=== PATIENT | male | born 1975 | race Caucasian/White ===

== ENCOUNTER 2016-09-23 18:20 | Inpatient (IN) | payer MEDICAID, OTHER ==
[~2016-09-23] VITALS: Ht 185.4 cm; Wt 90.5 kg
[~2016-09-23 18:20] MED LIST: BENZ1TAB10 PO; DIPH25 PO; LURA40 PO
[2016-09-23 19:46] LABS: BASOPHILS % (AUTO) 0.2 % (0.0-2.0); EOSINOPHILS % (AUTO) 0 % (1.0-6.0); HEMATOCRIT 43.1 % (41-53); HEMOGLOBIN 14.2 g/dL (13.5-17.5); LYMPHOCYTES # (AUTO) 1.4 K/uL (1.0-4.8); LYMPHOCYTES % (AUTO) 24.8 % (22.0-44.0); MEAN CORPUSCULAR HEMOGLOBIN 27.2 pg (26.0-34.0); MEAN CORPUSCULAR VOLUME 82 fL (80-100); MONOCYTES # (AUTO) 0.4 K/uL (0.1-1.0); MONOCYTES % (AUTO) 6.9 % (2.0-9.0); NEUTROPHILS # (AUTO) 3.9 K/uL (1.8-7.7); NEUTROPHILS % (AUTO) 68.1 % (40.0-70.0); PLATELET COUNT (AUTO) 213 K/uL (150-450); RED BLOOD CELL COUNT(AUTO) 5.23 MIL/uL (4.50-5.90); RED CELL DISTRIBUTION WIDTH 14.1 % (11.5-14.5); WHITE BLOOD COUNT (AUTO) 5.8 K/uL (4.5-11.0)
[2016-09-23 19:58] LABS: ANION GAP 6 mmol/L (8-16); CALCIUM, TOTAL 8.6 mg/dL (8.8-10.5); CARBON DIOXIDE 28 mmol/L (22-29); CHLORIDE 103 mmol/L (98-107); GLOMERULAR FILTR. RATE CALC > 60 mL/min (>60); POTASSIUM 4.2 mmol/L (3.5-5.1); SODIUM SERUM 137 mmol/L (136-145); UREA NITROGEN, BLOOD 16 mg/dL (7-18)
[2016-09-23] MEDS ORDERED: LORazepam 2 MG TABLET PO ONE (20:00)
[2016-09-23] MEDS ORDERED: HALOPERIDOL 5 MG TABLET PO ONE (20:00)
[2016-09-23 20:04] LABS: ALANINE AMINOTRANSFERASE 145 U/L (12-78); ALBUMIN 3.9 g/dL (3.4-5.0); ASPARTATE AMINOTRANSFERASE 209 U/L (15-37); BILIRUBIN,TOTAL 0.3 mg/dL (0.1-1.0); TOTAL PROTEIN, SERUM 7.7 g/dL (6.4-8.2)
[2016-09-23] MEDS ORDERED: DiphenhydrAMINE HCL 25 MG CAPSULE PO ONE (21:45)
[2016-09-23] MEDS ORDERED: LORazepam 2 MG/ML VIAL IM ONE (21:45)
[2016-09-23] MEDS ORDERED: ZOLPIDEM TARTRATE 10 MG TABLET PO PRN (22:30)
[2016-09-24 02:21] VITALS: BP 118/60
[2016-09-24] MEDS ORDERED: INFLUENZA VIRUS VACCINE QVS 2016-17 (3YR+)/PF 60 MCG/0.5 ML SYRINGE IM ONE (02:30)
[2016-09-24 08:01] VITALS: BP 123/74
[2016-09-24] MEDS ORDERED: MAGNESIUM HYDROXIDE SUSPENSION 30 ML UDCUP PO PRN (09:15)
[2016-09-24] MEDS ORDERED: CloNIDine HCL 0.1 MG TABLET PO PRN (09:15)
[2016-09-24] MEDS ORDERED: IBUPROFEN 600 MG TABLET PO PRN (09:15)
[2016-09-24] MEDS ORDERED: BACITRACIN 28.4 GM OINTMENT TP PRN (09:15)
[2016-09-24] MEDS ORDERED: ONDANSETRON HCL 4 MG TABLET PO PRN (09:15)
[2016-09-24] MEDS ORDERED: MAG HYDROX/AL HYDROX/SIMETH ES 30 ML SUSPENSION UDCUP PO PRN (09:15)
[2016-09-24] MEDS ORDERED: PETROLATUM,WHITE 71 GM JELLY TP PRN (09:15)
[2016-09-24] MEDS ORDERED: LOPERAMIDE HCL 2 MG CAPSULE PO PRN (09:15)
[2016-09-24] MEDS ORDERED: ACETAMINOPHEN 325 MG TABLET PO PRN (09:15)
[2016-09-24] MEDS ORDERED: BENZOCAINE/MENTHOL LOZENGE [8 LOZENGES/PACKET] MM PRN (09:15)
[2016-09-24] MEDS ORDERED: ALBUTEROL SULFATE HFA 90 MCG/PUFF 8 GM INHALER IH PRN (09:15)
[2016-09-24 16:00] VITALS: BP 125/74
[2016-09-24] MEDS: LURASIDONE HCL 80 MG TABLET PO SCH (17:03)
[2016-09-25 07:13] LABS: CHOL/HDL RATIO 1.7 (4.2-7.3); THYROID STIMULATING HORMONE 1.1 uIU/mL (0.36-3.74)
[2016-09-25 08:11] VITALS: BP 130/74
[2016-09-25 11:26] VITALS: BP 130/74
[2016-09-25] MEDS: LORazepam 2 MG TABLET PO PRN (13:15)
[2016-09-25 16:00] VITALS: BP 125/95
[2016-09-25] MEDS: LURASIDONE HCL 80 MG TABLET PO SCH (17:00)
[2016-09-26 05:05] VITALS: BP 146/77
[2016-09-26 08:00] VITALS: BP 139/96
[2016-09-26 11:26] LABS: HEPATITIS Bs ANTIGEN SCREEN P Negative (Negative); HEPATITIS C AB SCREEN <0.1 s/co ratio (0.0-0.9)
[2016-09-26] MEDS: HALOPERIDOL 5 MG TABLET PO PRN (13:13)
[2016-09-26] MEDS: LORazepam 2 MG TABLET PO PRN (13:13)
[2016-09-26] MEDS: LURASIDONE HCL 80 MG TABLET PO SCH (16:44)
[2016-09-26 16:56] VITALS: BP 142/90
[2016-09-27] MEDS: LORazepam 2 MG TABLET PO PRN ×2 (01:44→08:11)
[2016-09-27 08:00] VITALS: BP 135/75
[2016-09-27] MEDS: HALOPERIDOL 5 MG TABLET PO PRN (08:11)
== END 2016-09-27 14:45 | disposition home or self-care (01) | DRG 750 ==
LOC: EMS 18:21 → 3EC 23:46
PROVIDERS: ADMIT Psychiatry & Neurology Psychiatry; ATTEND Psychiatry & Neurology Psychiatry
DX: F25.9 Schizoaffective disorder, unspecified (principal); E83.51 Hypocalcemia; R45.851 Suicidal ideations; J44.9 Chronic obstructive pulmonary disease, unspecified; F10.129 Alcohol abuse with intoxication, unspecified; F12.90 Cannabis use, unspecified, uncomplicated; F17.210 Nicotine dependence, cigarettes, uncomplicated; R74.0 Nonspecific elevation of levels of transaminase and lactic acid dehydrogenase [LDH]; S00.01XA Abrasion of scalp, initial encounter; Z71.6 Tobacco abuse counseling; Z59.0 Homelessness; Z79.899 Other long term (current) drug therapy; Y08.89XA Assault by other specified means, initial encounter; Y93.89 Activity, other specified; Y92.89 Other specified places as the place of occurrence of the external cause; Y99.8 Other external cause status; Z28.21 Immunization not carried out because of patient refusal
CPT/HCPCS: 80074; 82306; 84443; 96372; 99285; G0480; J2060

== ENCOUNTER 2019-05-31 07:15 | Inpatient (IN) | payer MEDICAID ==
[~2019-05-31] VITALS: Ht 175.3 cm; Wt 82.4 kg
[~2019-05-31 07:15] MED LIST changes: -BENZ1TAB10 PO; -DIPH25 PO
[2019-05-31] MEDS ORDERED: OLAN10TA3 PO (07:27)
[2019-05-31 07:52] LABS: BASOPHILS % (AUTO) 0.7 % (0.0-2.0); EOSINOPHILS % (AUTO) 0.2 % (1.0-6.0); HEMATOCRIT 39.5 % (41-53); HEMOGLOBIN 12.7 g/dL (13.5-17.5); LYMPHOCYTES # (AUTO) 1.1 K/uL (1.0-4.8); LYMPHOCYTES % (AUTO) 19.2 % (22.0-44.0); MEAN CORPUSCULAR HGB CONC 32.3 G/dL (31.0-37.0); MEAN CORPUSCULAR VOLUME 84 fL (80-100); MONOCYTES # (AUTO) 0.4 K/uL (0.1-1.0); MONOCYTES % (AUTO) 6.9 % (2.0-9.0); NEUTROPHILS # (AUTO) 4.2 K/uL (1.8-7.7); PLATELET COUNT (AUTO) 300 K/uL (150-450); RED BLOOD CELL COUNT(AUTO) 4.73 MIL/uL (4.50-5.90); RED CELL DISTRIBUTION WIDTH 18.2 % (11.5-14.5)
[2019-05-31] MEDS ORDERED: OLANZapine 5 MG TABLET PO ONE (08:00)
[2019-05-31 08:07] LABS: ANION GAP 10 mmol/L (8-16); CALCIUM, TOTAL 8.9 mg/dL (8.8-10.5); CARBON DIOXIDE 29 mmol/L (22-29); CHLORIDE 105 mmol/L (98-107); CREATININE 1.11 mg/dL (0.60-1.30); GLOMERULAR FILTR. RATE CALC > 60 mL/min (>60); GLUCOSE,RANDOM 98 mg/dL (70-110); POTASSIUM 3.8 mmol/L (3.5-5.1); SODIUM SERUM 144 mmol/L (136-145); UREA NITROGEN, BLOOD 17 mg/dL (7-18)
[2019-05-31 08:36] LABS: ALANINE AMINOTRANSFERASE 93 U/L (12-78); ALKALINE PHOSPHATASE 55 U/L (46-116); ASPARTATE AMINOTRANSFERASE 95 U/L (15-37); BILIRUBIN,TOTAL 0.4 mg/dL (0.1-1.0); TOTAL PROTEIN, SERUM 7.6 g/dL (6.4-8.2)
[2019-05-31] MEDS ORDERED: ZOLPIDEM TARTRATE 10 MG TABLET PO PRN (09:15)
[2019-05-31 13:05] VITALS: BP 130/76
[2019-05-31 13:08] VITALS: BP 136/78
[2019-05-31 17:03] VITALS: BP 130/68
[2019-06-01 01:50] VITALS: BP 145/96
[2019-06-01] MEDS: OLANZapine 5 MG RAPDIS TABLET PO PRN ×2 (01:52→17:00)
[2019-06-01] MEDS: LORazepam 2 MG TABLET PO PRN ×3 (01:52→17:00)
[2019-06-01 06:41] LABS: CHOL/HDL RATIO 2.2 (4.2-7.3); FREE T4 (FREE THYROXINE) 0.66 ng/dL (0.76-1.46); THYROID STIMULATING HORMONE 0.61 uIU/mL (0.36-3.74)
[2019-06-01 09:12] VITALS: BP 132/79
[2019-06-01] MEDS ORDERED: ONDANSETRON HCL 4 MG TABLET PO PRN (11:00)
[2019-06-01] MEDS ORDERED: GuaiFENesin/D-METHORPHAN [SUGAR-FREE] 200-20MG/10 ML SYRUP UDCUP PO PRN (11:00)
[2019-06-01] MEDS ORDERED: ALBUTEROL SULFATE HFA 90 MCG/PUFF 8 GM INHALER IH PRN (11:00)
[2019-06-01] MEDS ORDERED: PETROLATUM,WHITE 28 GM JELLY TP PRN (11:00)
[2019-06-01] MEDS ORDERED: NICOTINE 14 MG/24 HOUR PATCH TD PRN (11:00)
[2019-06-01] MEDS ORDERED: MAG HYDROX/AL HYDROX/SIMETH ES 30 ML SUSPENSION UDCUP PO PRN (11:00)
[2019-06-01] MEDS ORDERED: DOCUSATE SODIUM 100 MG CAPSULE PO PRN (11:00)
[2019-06-01] MEDS ORDERED: CloNIDine HCL 0.1 MG TABLET PO PRN (11:00)
[2019-06-01] MEDS ORDERED: ACETAMINOPHEN 325 MG TABLET PO PRN (11:00)
[2019-06-01] MEDS ORDERED: IBUPROFEN 400 MG TABLET PO PRN (11:00)
[2019-06-01] MEDS ORDERED: LOPERAMIDE HCL 2 MG CAPSULE PO PRN (11:00)
[2019-06-01] MEDS ORDERED: MAGNESIUM HYDROXIDE SUSPENSION 30 ML UDCUP PO PRN (11:00)
[2019-06-01] MEDS ORDERED: BUPR-93 PO (12:47)
[2019-06-01] MEDS ORDERED: AMLO10TA7 PO (12:47)
[2019-06-01] MEDS: BuPROPion HCL XL 150 MG ER TABLET PO SCH (12:58)
[2019-06-01] MEDS: AmLODIPine BESYLATE 10 MG TABLET PO SCH (12:58)
[2019-06-01] MEDS: OLANZapine 10 MG TABLET PO SCH (17:00)
[2019-06-01 17:59] VITALS: BP 130/77
[2019-06-02] MEDS: AmLODIPine BESYLATE 10 MG TABLET PO SCH (07:49)
[2019-06-02] MEDS: BuPROPion HCL XL 150 MG ER TABLET PO SCH (07:49)
[2019-06-02] MEDS: LORazepam 2 MG TABLET PO PRN ×4 (07:49→17:36)
[2019-06-02] MEDS: OLANZapine 5 MG RAPDIS TABLET PO PRN ×3 (07:50→12:26)
[2019-06-02 09:26] VITALS: BP 150/101
[2019-06-02] MEDS ORDERED: LURA80 PO (17:56)
[2019-06-02] MEDS ORDERED: HALOPERIDOL LACTATE 5 MG/ML VIAL IM ONE (18:00)
[2019-06-02] MEDS ORDERED: LORazepam 2 MG/ML VIAL IM ONE (18:00)
[2019-06-02] MEDS ORDERED: DiphenhydrAMINE HCL 50 MG/ML VIAL IM ONE (18:00)
[2019-06-02] MEDS: OLANZapine 10 MG TABLET PO SCH (20:30)
[2019-06-02 21:26] VITALS: BP 138/79
[2019-06-03] MEDS: LORazepam 2 MG TABLET PO PRN ×2 (08:41→13:54)
[2019-06-03] MEDS: BuPROPion HCL XL 150 MG ER TABLET PO SCH (08:41)
[2019-06-03] MEDS: AmLODIPine BESYLATE 10 MG TABLET PO SCH (08:41)
[2019-06-03] MEDS: OLANZapine 5 MG RAPDIS TABLET PO PRN (13:54)
[2019-06-03] MEDS ORDERED: LORazepam 2 MG/ML VIAL IM ONE (16:15)
[2019-06-03] MEDS ORDERED: HALOPERIDOL LACTATE 5 MG/ML VIAL IM ONE (16:15)
[2019-06-03] MEDS ORDERED: DiphenhydrAMINE HCL 50 MG/ML VIAL IM ONE (16:15)
[2019-06-03 16:26] VITALS: BP 134/82
[2019-06-03] MEDS: OLANZapine 10 MG TABLET PO SCH (20:36)
[2019-06-04] MEDS: AmLODIPine BESYLATE 10 MG TABLET PO SCH (09:37)
[2019-06-04] MEDS: LORazepam 2 MG TABLET PO PRN ×2 (09:37→18:10)
[2019-06-04] MEDS: BuPROPion HCL XL 150 MG ER TABLET PO SCH (09:37)
[2019-06-04 10:19] VITALS: BP 115/63
[2019-06-04 16:27] VITALS: BP 130/78
[2019-06-04] MEDS: OLANZapine 10 MG TABLET PO SCH (20:13)
[2019-06-05] MEDS: AmLODIPine BESYLATE 10 MG TABLET PO SCH (09:40)
[2019-06-05] MEDS: BuPROPion HCL XL 150 MG ER TABLET PO SCH (09:40)
[2019-06-05 12:30] VITALS: BP 116/78
[2019-06-05 16:00] VITALS: BP 126/75
[2019-06-05] MEDS: OLANZapine 10 MG TABLET PO SCH (20:08)
[2019-06-06] MEDS: LORazepam 2 MG TABLET PO PRN ×3 (04:56→18:28)
[2019-06-06] MEDS: AmLODIPine BESYLATE 10 MG TABLET PO SCH (09:29)
[2019-06-06] MEDS: BuPROPion HCL XL 150 MG ER TABLET PO SCH (09:29)
[2019-06-06 11:47] VITALS: BP 123/80
[2019-06-06 16:22] VITALS: BP 136/85
[2019-06-06] MEDS: OLANZapine 10 MG TABLET PO SCH (20:09)
[2019-06-07] MEDS: LORazepam 2 MG TABLET PO PRN (06:56)
[2019-06-07] MEDS: BuPROPion HCL XL 150 MG ER TABLET PO SCH (07:42)
[2019-06-07] MEDS: AmLODIPine BESYLATE 10 MG TABLET PO SCH (07:42)
[2019-06-07 08:16] VITALS: BP 122/93
== END 2019-06-07 10:00 | disposition home or self-care (01) | DRG 750 ==
LOC: EMS 07:15 → 3EI 09:44 → 3EC 06-01 17:30
PROVIDERS: ADMIT Psychiatry & Neurology Child & Adolescent Psychiatry; ATTEND Psychiatry & Neurology Child & Adolescent Psychiatry
DX: F20.0 Paranoid schizophrenia (principal); R45.851 Suicidal ideations; R74.0 Nonspecific elevation of levels of transaminase and lactic acid dehydrogenase [LDH]; Z91.14 Patient's other noncompliance with medication regimen; D64.9 Anemia, unspecified; Z59.0 Homelessness; J45.909 Unspecified asthma, uncomplicated; F10.10 Alcohol abuse, uncomplicated; F17.200 Nicotine dependence, unspecified, uncomplicated; F12.90 Cannabis use, unspecified, uncomplicated
CPT/HCPCS: 84439; 84443; 96372; G0480; J1200; J1630; J2060

== ENCOUNTER 2019-09-27 22:01 | Inpatient (IN) | payer MEDICAID ==
[~2019-09-27] VITALS: Ht 172.7 cm; Wt 78.5 kg
[~2019-09-27 22:01] MED LIST changes: +AMLO10TA7 PO; +BUPR-93 PO; -LURA40 PO; +OLAN10TA3 PO
[2019-09-27] MEDS ORDERED: ACETAMINOPHEN 500 MG TABLET PO ONE (22:45)
[2019-09-27 22:59] LABS: BASOPHILS % (AUTO) 0.4 % (0.0-2.0); EOSINOPHILS % (AUTO) 0.5 % (1.0-6.0); HEMOGLOBIN 14.1 g/dL (13.5-17.5); LYMPHOCYTES # (AUTO) 1.4 K/uL (1.0-4.8); LYMPHOCYTES % (AUTO) 19.9 % (22.0-44.0); MEAN CORPUSCULAR HEMOGLOBIN 27.3 pg (26.0-34.0); MEAN CORPUSCULAR HGB CONC 33.5 G/dL (31.0-37.0); MEAN CORPUSCULAR VOLUME 81 fL (80-100); MONOCYTES # (AUTO) 0.8 K/uL (0.1-1.0); MONOCYTES % (AUTO) 12.2 % (2.0-9.0); NEUTROPHILS # (AUTO) 4.6 K/uL (1.8-7.7); PLATELET COUNT (AUTO) 172 K/uL (150-450); RED BLOOD CELL COUNT(AUTO) 5.16 MIL/uL (4.50-5.90); RED CELL DISTRIBUTION WIDTH 17.1 % (11.5-14.5)
[2019-09-27 23:02] LABS: AMPHET/METH SCREEN,URINE NEGATIVE (NEGATIVE); BARBITURATE SCREEN, URINE NEGATIVE (NEGATIVE); BENZODIAZEPINES SCREEN,URINE NEGATIVE (NEGATIVE); CANNABINOID SCREEN,URINE POSITIVE (NEGATIVE); COCAINE SCREEN,URINE NEGATIVE (NEGATIVE); METHADONE SCREEN, URINE NEGATIVE (NEGATIVE); OPIATE SCREEN,URINE NEGATIVE (NEGATIVE)
[2019-09-27 23:07] LABS: PHENCYCLIDINE SCREEN,URINE NEGATIVE (NEGATIVE)
[2019-09-27 23:10] LABS: ANION GAP 5 mmol/L (8-16); CALCIUM, TOTAL 9.1 mg/dL (8.8-10.5); CARBON DIOXIDE 31 mmol/L (22-29); CHLORIDE 98 mmol/L (98-107); CREATININE 1.21 mg/dL (0.60-1.30); GLOMERULAR FILTR. RATE CALC > 60 mL/min (>60); GLUCOSE,RANDOM 100 mg/dL (70-110); POTASSIUM 4.6 mmol/L (3.5-5.1); SODIUM SERUM 134 mmol/L (136-145); UREA NITROGEN, BLOOD 19 mg/dL (7-18)
[2019-09-27 23:15] LABS: ALANINE AMINOTRANSFERASE 121 U/L (12-78); ALBUMIN 3.9 g/dL (3.4-5.0); ALKALINE PHOSPHATASE 55 U/L (46-116); ASPARTATE AMINOTRANSFERASE 414 U/L (15-37); BILIRUBIN,TOTAL 0.8 mg/dL (0.1-1.0); TOTAL PROTEIN, SERUM 7.6 g/dL (6.4-8.2)
[2019-09-27] MEDS ORDERED: ZOLPIDEM TARTRATE 10 MG TABLET PO PRN (23:45)
[2019-09-27] MEDS ORDERED: HALOPERIDOL 5 MG TABLET PO PRN (23:45)
[2019-09-28 03:30] LABS: APPEARANCE,URINE CLEAR (CLEAR); GLUCOSE, URINE (UA) NEGATIVE (NEGATIVE); KETONES,URINE TRACE mg/dL (NEGATIVE); LEUKOCYTE ESTERASE ,URINE NEGATIVE (NEGATIVE); NITRATE,URINE NEGATIVE (NEGATIVE); OCCULT BLOOD,URINE NEGATIVE (NEGATIVE); PROTEIN,URINE TRACE (NEGATIVE)
[2019-09-28 03:35] LABS: BILIRUBIN,URINE PRELIM. POSITIVE (NEGATIVE)
[2019-09-28 03:46] LABS: BACTERIA,URINE None Seen /HPF (None Seen); RBC,URINE 0-2 /HPF (0-2); WBC,URINE 0-2 /HPF (0-5)
[2019-09-28 03:47] LABS: SQUAMOUS EPITHELIAL CELL,UR Rare /LPF (None Seen)
[2019-09-28 04:06] VITALS: BP 135/85
[2019-09-28] MEDS ORDERED: PNEUMOCOCCAL VACCINE POLYVALENT 0.5 ML VIAL [PPSV23] IM ONE (05:00)
[2019-09-28] MEDS ORDERED: INFLUENZA VIRUS VACCINE QVS 2019-20 (3YR+)/PF 60 MCG/0.5 ML SYRINGE IM ONE (05:00)
[2019-09-28] MEDS: LORazepam 2 MG TABLET PO PRN (13:28)
[2019-09-28] MEDS ORDERED: MAGNESIUM HYDROXIDE SUSPENSION 30 ML UDCUP PO PRN (15:00)
[2019-09-28] MEDS ORDERED: MAG HYDROX/AL HYDROX/SIMETH ES 30 ML SUSPENSION UDCUP PO PRN (15:00)
[2019-09-28] MEDS ORDERED: GuaiFENesin/D-METHORPHAN [SUGAR-FREE] 200-20MG/10 ML SYRUP UDCUP PO PRN (15:00)
[2019-09-28] MEDS ORDERED: PETROLATUM,WHITE 28 GM JELLY TP PRN (15:00)
[2019-09-28] MEDS ORDERED: IBUPROFEN 400 MG TABLET PO PRN (15:00)
[2019-09-28] MEDS ORDERED: ACETAMINOPHEN 325 MG TABLET PO PRN (15:00)
[2019-09-28] MEDS ORDERED: CloNIDine HCL 0.1 MG TABLET PO PRN (15:00)
[2019-09-28] MEDS ORDERED: ALBUTEROL SULFATE HFA 90 MCG/PUFF 8 GM INHALER IH PRN (15:00)
[2019-09-28] MEDS ORDERED: NICOTINE 14 MG/24 HOUR PATCH TD PRN (15:00)
[2019-09-28] MEDS ORDERED: ONDANSETRON HCL 4 MG TABLET PO PRN (15:00)
[2019-09-28] MEDS ORDERED: LOPERAMIDE HCL 2 MG CAPSULE PO PRN (15:00)
[2019-09-28] MEDS ORDERED: DOCUSATE SODIUM 100 MG CAPSULE PO PRN (15:00)
[2019-09-28 16:11] VITALS: BP 121/65
[2019-09-29 01:48] VITALS: BP 134/83
[2019-09-29] MEDS: LORazepam 2 MG TABLET PO PRN (08:20)
[2019-09-29] MEDS ORDERED: AmLODIPine BESYLATE 10 MG TABLET PO SCH (09:00)
[2019-09-29] MEDS ORDERED: BuPROPion HCL 75 MG TABLET PO SCH (09:00)
[2019-09-29 14:03] VITALS: BP 132/84
[2019-09-29] MEDS ORDERED: OLANZapine 10 MG TABLET PO SCH (21:00)
== END 2019-09-29 15:30 | disposition home or self-care (01) | DRG 750 ==
LOC: EMS 22:03 → B3A 09-28 02:20
PROVIDERS: ADMIT Psychiatry & Neurology Psychiatry; ATTEND Psychiatry & Neurology Psychiatry
DX: F20.0 Paranoid schizophrenia (principal); E87.1 Hypo-osmolality and hyponatremia; R45.851 Suicidal ideations; D64.9 Anemia, unspecified; F10.10 Alcohol abuse, uncomplicated; I10 Essential (primary) hypertension; J45.909 Unspecified asthma, uncomplicated; Z87.891 Personal history of nicotine dependence
CPT/HCPCS: G0480

== ENCOUNTER 2019-10-01 10:54 | Inpatient (IN) | payer MEDICAID ==
[~2019-10-01] VITALS: Ht 172.7 cm; Wt 78.0 kg
[2019-10-01 12:15] LABS: BASOPHILS % (AUTO) 0.7 % (0.0-2.0); EOSINOPHILS % (AUTO) 1.4 % (1.0-6.0); HEMATOCRIT 45.2 % (41-53); HEMOGLOBIN 14.9 g/dL (13.5-17.5); LYMPHOCYTES # (AUTO) 1.5 K/uL (1.0-4.8); LYMPHOCYTES % (AUTO) 24.3 % (22.0-44.0); MEAN CORPUSCULAR HEMOGLOBIN 27.3 pg (26.0-34.0); MEAN CORPUSCULAR HGB CONC 33.1 G/dL (31.0-37.0); MEAN CORPUSCULAR VOLUME 83 fL (80-100); MONOCYTES # (AUTO) 0.5 K/uL (0.1-1.0); MONOCYTES % (AUTO) 7.6 % (2.0-9.0); NEUTROPHILS # (AUTO) 4.1 K/uL (1.8-7.7); PLATELET COUNT (AUTO) 227 K/uL (150-450); RED BLOOD CELL COUNT(AUTO) 5.47 MIL/uL (4.50-5.90); RED CELL DISTRIBUTION WIDTH 16.8 % (11.5-14.5)
[2019-10-01 12:29] LABS: ANION GAP 7 mmol/L (8-16); CALCIUM, TOTAL 9.4 mg/dL (8.8-10.5); CARBON DIOXIDE 32 mmol/L (22-29); CHLORIDE 101 mmol/L (98-107); CREATININE 1.09 mg/dL (0.60-1.30); GLOMERULAR FILTR. RATE CALC > 60 mL/min (>60); GLUCOSE,RANDOM 77 mg/dL (70-110); POTASSIUM 4.1 mmol/L (3.5-5.1); SODIUM SERUM 140 mmol/L (136-145)
[2019-10-01 12:35] LABS: ALANINE AMINOTRANSFERASE 148 U/L (12-78); ALBUMIN 4.2 g/dL (3.4-5.0); ALKALINE PHOSPHATASE 62 U/L (46-116); ASPARTATE AMINOTRANSFERASE 361 U/L (15-37); BILIRUBIN,TOTAL 0.9 mg/dL (0.1-1.0); TOTAL PROTEIN, SERUM 8.5 g/dL (6.4-8.2)
[2019-10-01 12:44] LABS: AMPHET/METH SCREEN,URINE NEGATIVE (NEGATIVE); BARBITURATE SCREEN, URINE NEGATIVE (NEGATIVE); BENZODIAZEPINES SCREEN,URINE NEGATIVE (NEGATIVE); CANNABINOID SCREEN,URINE POSITIVE (NEGATIVE); COCAINE SCREEN,URINE NEGATIVE (NEGATIVE); METHADONE SCREEN, URINE NEGATIVE (NEGATIVE); OPIATE SCREEN,URINE NEGATIVE (NEGATIVE)
[2019-10-01 12:45] LABS: UREA NITROGEN, BLOOD 17 mg/dL (7-18)
[2019-10-01 12:45] LABS: PHENCYCLIDINE SCREEN,URINE NEGATIVE (NEGATIVE)
[2019-10-01] MEDS ORDERED: ZOLPIDEM TARTRATE 10 MG TABLET PO PRN (12:45)
[2019-10-01 16:14] VITALS: BP 135/99
[2019-10-01] MEDS: LORazepam 2 MG TABLET PO PRN (16:22)
[2019-10-01] MEDS: HALOPERIDOL 5 MG TABLET PO PRN (16:22)
[2019-10-01] MEDS ORDERED: MAG HYDROX/AL HYDROX/SIMETH ES 30 ML SUSPENSION UDCUP PO PRN (16:45)
[2019-10-01] MEDS ORDERED: ACETAMINOPHEN 325 MG TABLET PO PRN (16:45)
[2019-10-01] MEDS ORDERED: LOPERAMIDE HCL 2 MG CAPSULE PO PRN (16:45)
[2019-10-01] MEDS ORDERED: DOCUSATE SODIUM 100 MG CAPSULE PO PRN (16:45)
[2019-10-01] MEDS ORDERED: GuaiFENesin/D-METHORPHAN [SUGAR-FREE] 200-20MG/10 ML SYRUP UDCUP PO PRN (16:45)
[2019-10-01] MEDS ORDERED: MAGNESIUM HYDROXIDE SUSPENSION 30 ML UDCUP PO PRN (16:45)
[2019-10-01] MEDS ORDERED: ONDANSETRON HCL 4 MG TABLET PO PRN (16:45)
[2019-10-01] MEDS ORDERED: ALBUTEROL SULFATE HFA 90 MCG/PUFF 8 GM INHALER IH PRN (16:45)
[2019-10-01] MEDS ORDERED: CloNIDine HCL 0.1 MG TABLET PO PRN (16:45)
[2019-10-01] MEDS ORDERED: PETROLATUM,WHITE 28 GM JELLY TP PRN (16:45)
[2019-10-01] MEDS ORDERED: NICOTINE 14 MG/24 HOUR PATCH TD PRN (16:45)
[2019-10-01] MEDS ORDERED: IBUPROFEN 400 MG TABLET PO PRN (16:45)
[2019-10-01] MEDS ORDERED: PNEUMOCOCCAL VACCINE POLYVALENT 0.5 ML VIAL [PPSV23] IM ONE (17:30)
[2019-10-01] MEDS ORDERED: INFLUENZA VIRUS VACCINE QVS 2019-20 (3YR+)/PF 60 MCG/0.5 ML SYRINGE IM ONE (17:30)
[2019-10-02 05:30] VITALS: BP 143/82
[2019-10-02 08:00] VITALS: BP 116/60
[2019-10-02 08:17] LABS: CHOL/HDL RATIO 2.6 (4.2-7.3); FREE T4 (FREE THYROXINE) 0.75 ng/dL (0.76-1.46)
[2019-10-02] MEDS: AmLODIPine BESYLATE 10 MG TABLET PO SCH (08:40)
[2019-10-02] MEDS: HALOPERIDOL 5 MG TABLET PO PRN (11:21)
[2019-10-02] MEDS: LORazepam 2 MG TABLET PO PRN (11:22)
[2019-10-02 17:20] VITALS: BP 102/60
[2019-10-03 00:19] VITALS: BP 132/70
[2019-10-03] MEDS: AmLODIPine BESYLATE 10 MG TABLET PO SCH (08:57)
[2019-10-03] MEDS: BuPROPion HCL 75 MG TABLET PO SCH (08:57)
[2019-10-03 09:00] VITALS: BP 112/90
[2019-10-03] MEDS: LORazepam 2 MG TABLET PO PRN ×2 (13:54→21:00)
[2019-10-03] MEDS: HALOPERIDOL 5 MG TABLET PO PRN (13:54)
[2019-10-03 16:17] VITALS: BP 122/78
[2019-10-03] MEDS: OLANZapine 7.5 MG TABLET PO SCH (21:00)
[2019-10-04 00:52] VITALS: BP 103/52
[2019-10-04 08:31] VITALS: BP 109/64
[2019-10-04] MEDS: BuPROPion HCL 75 MG TABLET PO SCH (08:37)
[2019-10-04] MEDS: AmLODIPine BESYLATE 10 MG TABLET PO SCH (08:38)
[2019-10-04 16:07] VITALS: BP 116/64
[2019-10-04] MEDS: HALOPERIDOL 5 MG TABLET PO PRN (16:51)
[2019-10-04] MEDS: LORazepam 2 MG TABLET PO PRN (16:51)
[2019-10-04] MEDS: OLANZapine 7.5 MG TABLET PO SCH (20:26)
[2019-10-05 03:34] VITALS: BP 119/82
[2019-10-05 08:00] VITALS: BP 111/66
[2019-10-05] MEDS: AmLODIPine BESYLATE 10 MG TABLET PO SCH (08:19)
[2019-10-05] MEDS: BuPROPion HCL 75 MG TABLET PO SCH (08:19)
[2019-10-05] MEDS ORDERED: OLAN7.5T2 PO (11:13)
== END 2019-10-05 11:30 | disposition home or self-care (01) | DRG 750 ==
LOC: EMS 11:00 → B3A 15:08
PROVIDERS: ADMIT Psychiatry & Neurology Psychiatry; ATTEND Psychiatry & Neurology Psychiatry
DX: F25.9 Schizoaffective disorder, unspecified (principal); R45.851 Suicidal ideations; R74.0 Nonspecific elevation of levels of transaminase and lactic acid dehydrogenase [LDH]; F10.10 Alcohol abuse, uncomplicated; Y90.9 Presence of alcohol in blood, level not specified; F19.10 Other psychoactive substance abuse, uncomplicated; I10 Essential (primary) hypertension; F12.90 Cannabis use, unspecified, uncomplicated; J44.9 Chronic obstructive pulmonary disease, unspecified; B17.9 Acute viral hepatitis, unspecified; Z87.891 Personal history of nicotine dependence; Z88.8 Allergy status to other drugs, medicaments and biological substances; Z28.21 Immunization not carried out because of patient refusal
CPT/HCPCS: 80074; 84436; 84439; 87081; G0480

== ENCOUNTER 2019-10-08 13:56 | Inpatient (IN) | payer MEDICAID ==
[~2019-10-08] VITALS: Ht 172.7 cm; Wt 80.9 kg
[~2019-10-08 13:56] MED LIST changes: -OLAN10TA3 PO; +OLAN7.5T2 PO
[2019-10-08] MEDS ORDERED: ZOLPIDEM TARTRATE 10 MG TABLET PO PRN (15:30)
[2019-10-08 15:42] LABS: BASOPHILS % (AUTO) 0.5 % (0.0-2.0); EOSINOPHILS % (AUTO) 1.1 % (1.0-6.0); HEMATOCRIT 38.8 % (41-53); HEMOGLOBIN 12.6 g/dL (13.5-17.5); LYMPHOCYTES # (AUTO) 1.5 K/uL (1.0-4.8); LYMPHOCYTES % (AUTO) 26.9 % (22.0-44.0); MEAN CORPUSCULAR HEMOGLOBIN 26.8 pg (26.0-34.0); MEAN CORPUSCULAR HGB CONC 32.5 G/dL (31.0-37.0); MEAN CORPUSCULAR VOLUME 83 fL (80-100); MONOCYTES # (AUTO) 0.8 K/uL (0.1-1.0); MONOCYTES % (AUTO) 14.1 % (2.0-9.0); NEUTROPHILS # (AUTO) 3.1 K/uL (1.8-7.7); NEUTROPHILS % (AUTO) 57.4 % (40.0-70.0); PLATELET COUNT (AUTO) 265 K/uL (150-450); RED CELL DISTRIBUTION WIDTH 17.3 % (11.5-14.5)
[2019-10-08 15:57] LABS: ANION GAP 8 mmol/L (8-16); CALCIUM, TOTAL 8.9 mg/dL (8.8-10.5); CARBON DIOXIDE 27 mmol/L (22-29); CHLORIDE 102 mmol/L (98-107); CREATININE 0.99 mg/dL (0.60-1.30); GLOMERULAR FILTR. RATE CALC > 60 mL/min (>60); GLUCOSE,RANDOM 100 mg/dL (70-110); POTASSIUM 3.7 mmol/L (3.5-5.1); SODIUM SERUM 137 mmol/L (136-145); UREA NITROGEN, BLOOD 13 mg/dL (7-18)
[2019-10-08 16:05] LABS: ALANINE AMINOTRANSFERASE 74 U/L (12-78); ALBUMIN 3.8 g/dL (3.4-5.0); ALKALINE PHOSPHATASE 50 U/L (46-116); ASPARTATE AMINOTRANSFERASE 74 U/L (15-37); BILIRUBIN,TOTAL 0.4 mg/dL (0.1-1.0); TOTAL PROTEIN, SERUM 7.4 g/dL (6.4-8.2)
[2019-10-08 16:19] LABS: AMPHET/METH SCREEN,URINE NEGATIVE (NEGATIVE); BARBITURATE SCREEN, URINE NEGATIVE (NEGATIVE); BENZODIAZEPINES SCREEN,URINE NEGATIVE (NEGATIVE); CANNABINOID SCREEN,URINE POSITIVE (NEGATIVE); COCAINE SCREEN,URINE NEGATIVE (NEGATIVE); METHADONE SCREEN, URINE NEGATIVE (NEGATIVE); OPIATE SCREEN,URINE NEGATIVE (NEGATIVE); PHENCYCLIDINE SCREEN,URINE NEGATIVE (NEGATIVE)
[2019-10-08 17:50] VITALS: BP 128/86
[2019-10-08 18:45] VITALS: BP 118/73
[2019-10-08] MEDS ORDERED: INFLUENZA VIRUS VACCINE QVS 2019-20 (3YR+)/PF 60 MCG/0.5 ML SYRINGE IM ONE (19:15)
[2019-10-08] MEDS ORDERED: PNEUMOCOCCAL VACCINE POLYVALENT 0.5 ML VIAL [PPSV23] IM ONE (19:15)
[2019-10-08 19:46] VITALS: BP 128/84
[2019-10-08 20:46] VITALS: BP 113/76
[2019-10-09] VITALS (7 sets, daily range): BP systolic 102–126; BP diastolic 63–84
[2019-10-09 08:19] LABS: CHOL/HDL RATIO 2.4 (4.2-7.3); FREE T4 (FREE THYROXINE) 0.7 ng/dL (0.76-1.46); THYROID STIMULATING HORMONE 1.58 uIU/mL (0.36-3.74)
[2019-10-09] MEDS ORDERED: AmLODIPine BESYLATE 10 MG TABLET PO SCH (09:00)
[2019-10-09] MEDS: LORazepam 2 MG TABLET PO PRN ×2 (11:06→20:32)
[2019-10-09] MEDS: BuPROPion HCL XL 150 MG ER TABLET PO SCH (11:15)
[2019-10-09] MEDS: OLANZapine 10 MG TABLET PO SCH ×2 (11:15→20:32)
[2019-10-09] MEDS ORDERED: ACETAMINOPHEN 325 MG TABLET PO PRN (11:30)
[2019-10-09] MEDS ORDERED: NICOTINE 14 MG/24 HOUR PATCH TD PRN (11:30)
[2019-10-09] MEDS ORDERED: MAGNESIUM HYDROXIDE SUSPENSION 30 ML UDCUP PO PRN (11:30)
[2019-10-09] MEDS ORDERED: DOCUSATE SODIUM 100 MG CAPSULE PO PRN (11:30)
[2019-10-09] MEDS ORDERED: LOPERAMIDE HCL 2 MG CAPSULE PO PRN (11:30)
[2019-10-09] MEDS ORDERED: ONDANSETRON HCL 4 MG TABLET PO PRN (11:30)
[2019-10-09] MEDS ORDERED: GuaiFENesin/D-METHORPHAN [SUGAR-FREE] 200-20MG/10 ML SYRUP UDCUP PO PRN (11:30)
[2019-10-09] MEDS ORDERED: CloNIDine HCL 0.1 MG TABLET PO PRN (11:30)
[2019-10-09] MEDS ORDERED: MAG HYDROX/AL HYDROX/SIMETH ES 30 ML SUSPENSION UDCUP PO PRN (11:30)
[2019-10-09] MEDS ORDERED: ALBUTEROL SULFATE HFA 90 MCG/PUFF 8 GM INHALER IH PRN (11:30)
[2019-10-09] MEDS ORDERED: PETROLATUM,WHITE 28 GM JELLY TP PRN (11:30)
[2019-10-09] MEDS ORDERED: IBUPROFEN 400 MG TABLET PO PRN (11:30)
[2019-10-10 00:34] VITALS: BP 113/68
[2019-10-10 00:41] VITALS: BP 113/63
[2019-10-10 08:00] VITALS: BP 119/60
[2019-10-10] MEDS: AmLODIPine BESYLATE 10 MG TABLET PO SCH (08:42)
[2019-10-10] MEDS: BuPROPion HCL XL 150 MG ER TABLET PO SCH (08:42)
[2019-10-10] MEDS: OLANZapine 10 MG TABLET PO SCH ×2 (08:51→21:00)
[2019-10-10 13:05] VITALS: BP 112/67
[2019-10-10 16:00] VITALS: BP 134/68
[2019-10-10 16:15] VITALS: BP 134/68
[2019-10-10] MEDS: LORazepam 2 MG TABLET PO PRN (16:30)
[2019-10-10] MEDS: OLANZapine 5 MG RAPDIS TABLET PO PRN (16:30)
[2019-10-10] MEDS ORDERED: HALOPERIDOL LACTATE 5 MG/ML VIAL IM ONE (17:45)
[2019-10-10] MEDS ORDERED: LORazepam 2 MG/ML VIAL IM ONE (17:45)
[2019-10-10] MEDS ORDERED: DiphenhydrAMINE HCL 50 MG/ML VIAL IM ONE (17:45)
[2019-10-11] MEDS: OLANZapine 5 MG RAPDIS TABLET PO PRN (09:42)
[2019-10-11] MEDS: AmLODIPine BESYLATE 10 MG TABLET PO SCH (09:42)
[2019-10-11] MEDS: BuPROPion HCL XL 150 MG ER TABLET PO SCH (09:42)
[2019-10-11] MEDS: OLANZapine 10 MG TABLET PO SCH ×2 (10:18→20:20)
[2019-10-11 11:18] VITALS: BP 110/70
[2019-10-11 16:05] VITALS: BP 138/66
[2019-10-11 17:11] VITALS: BP 138/62
[2019-10-12 00:15] VITALS: BP 137/86
[2019-10-12 00:53] VITALS: BP 137/86
[2019-10-12] MEDS ORDERED: OLAN10TA3 PO ×2 (08:03→08:04)
[2019-10-12 08:12] VITALS: BP 137/90
[2019-10-12] MEDS: AmLODIPine BESYLATE 10 MG TABLET PO SCH (08:58)
[2019-10-12] MEDS: BuPROPion HCL XL 150 MG ER TABLET PO SCH (08:58)
[2019-10-12] MEDS ORDERED: MULTIVITAMINS WITH MINERALS, THERAPEUTIC TABLET PO SCH (09:00)
[2019-10-12] MEDS ORDERED: FOLIC ACID 1 MG TABLET PO SCH (09:00)
[2019-10-12] MEDS ORDERED: THIAMINE HCL 100 MG TABLET PO SCH (09:00)
== END 2019-10-12 10:30 | disposition home or self-care (01) | DRG 750 ==
LOC: EMS 13:59 → B3A 16:33
PROVIDERS: ADMIT Psychiatry & Neurology Psychiatry; ATTEND Psychiatry & Neurology Psychiatry
DX: F25.9 Schizoaffective disorder, unspecified (principal); R45.851 Suicidal ideations; R45.850 Homicidal ideations; I10 Essential (primary) hypertension; E78.5 Hyperlipidemia, unspecified; J45.909 Unspecified asthma, uncomplicated; F10.10 Alcohol abuse, uncomplicated; F17.210 Nicotine dependence, cigarettes, uncomplicated; Z59.0 Homelessness; Z71.6 Tobacco abuse counseling; Z79.899 Other long term (current) drug therapy
CPT/HCPCS: 84439; 84443; 87081; G0480; J1200; J1630; J2060

== ENCOUNTER 2020-06-27 00:35 | Emergency (ER) | payer MEDICAID ==
[~2020-06-27] VITALS: Ht 172.7 cm; Wt 77.3 kg
[~2020-06-27 00:35] MED LIST changes: +AMLO-258 PO; -AMLO10TA7 PO; -BUPR-93 PO; +OLAN10TA3 PO; -OLAN7.5T2 PO
[2020-06-27 01:18] LABS: BASOPHILS % (AUTO) 0.6 % (0.0-2.0); EOSINOPHILS % (AUTO) 0.5 % (1.0-6.0); HEMATOCRIT 42.7 % (41-53); HEMOGLOBIN 14.2 g/dL (13.5-17.5); LYMPHOCYTES # (AUTO) 1.6 K/uL (1.0-4.8); LYMPHOCYTES % (AUTO) 30.3 % (22.0-44.0); MEAN CORPUSCULAR HEMOGLOBIN 27.5 pg (26.0-34.0); MEAN CORPUSCULAR HGB CONC 33.3 G/dL (31.0-37.0); MEAN CORPUSCULAR VOLUME 83 fL (80-100); MONOCYTES # (AUTO) 0.5 K/uL (0.1-1.0); MONOCYTES % (AUTO) 8.9 % (2.0-9.0); NEUTROPHILS # (AUTO) 3.1 K/uL (1.8-7.7); NEUTROPHILS % (AUTO) 59.7 % (40.0-70.0); PLATELET COUNT (AUTO) 230 K/uL (150-450); RED BLOOD CELL COUNT(AUTO) 5.17 MIL/uL (4.50-5.90); RED CELL DISTRIBUTION WIDTH 17.4 % (11.5-14.5)
[2020-06-27 01:30] LABS: ANION GAP 9 mmol/L (8-16); CALCIUM, TOTAL 8.9 mg/dL (8.8-10.5); CARBON DIOXIDE 29 mmol/L (22-29); CHLORIDE 103 mmol/L (98-107); CREATININE 1.07 mg/dL (0.60-1.30); GLOMERULAR FILTR. RATE CALC > 60 mL/min (>60); GLUCOSE,RANDOM 91 mg/dL (70-110); POTASSIUM 4.1 mmol/L (3.5-5.1); SODIUM SERUM 141 mmol/L (136-145); UREA NITROGEN, BLOOD 13 mg/dL (7-18)
[2020-06-27 01:37] LABS: ALANINE AMINOTRANSFERASE 72 U/L (12-78); ALBUMIN 4.1 g/dL (3.4-5.0); ALKALINE PHOSPHATASE 62 U/L (46-116); ASPARTATE AMINOTRANSFERASE 64 U/L (15-37); BILIRUBIN,TOTAL 0.3 mg/dL (0.1-1.0); TOTAL PROTEIN, SERUM 8.3 g/dL (6.4-8.2)
[2020-06-27 03:27] LABS: COVID AG,FIA SOURCE NASOPHARYNGEAL
[2020-06-27 07:25] LABS: AMPHET/METH SCREEN,URINE NEGATIVE (NEGATIVE); BARBITURATE SCREEN, URINE NEGATIVE (NEGATIVE); BENZODIAZEPINES SCREEN,URINE NEGATIVE (NEGATIVE); CANNABINOID SCREEN,URINE POSITIVE (NEGATIVE); COCAINE SCREEN,URINE NEGATIVE (NEGATIVE); METHADONE SCREEN, URINE NEGATIVE (NEGATIVE); OPIATE SCREEN,URINE NEGATIVE (NEGATIVE)
[2020-06-27 07:29] LABS: PHENCYCLIDINE SCREEN,URINE NEGATIVE (NEGATIVE)
[2020-06-27 09:30] VITALS: BP 131/70
== END 2020-06-27 09:33 | disposition home or self-care (01) ==
LOC: EMS 00:35
DX: F32.9 Major depressive disorder, single episode, unspecified (principal); R45.851 Suicidal ideations; F20.9 Schizophrenia, unspecified; F17.210 Nicotine dependence, cigarettes, uncomplicated; F12.90 Cannabis use, unspecified, uncomplicated; Z20.828 Contact with and (suspected) exposure to other viral communicable diseases; Z59.0 Homelessness; Z88.8 Allergy status to other drugs, medicaments and biological substances
CPT/HCPCS: 36415; 80053; 80307; 85025; 87426; 99285; G0480

== ENCOUNTER 2020-08-12 14:41 | Inpatient (IN) | payer MEDICAID ==
[~2020-08-12] VITALS: Ht 172.7 cm; Wt 85.5 kg
[~2020-08-12 14:41] MED LIST changes: -AMLO-258 PO
[2020-08-12] MEDS ORDERED: MAG HYDROX/AL HYDROX/SIMETH ES 30 ML SUSPENSION UDCUP PO PRN (15:45)
[2020-08-12] MEDS ORDERED: DIAZEPAM 10 MG TABLET PO PRN (15:45)
[2020-08-12] MEDS ORDERED: OLANZapine 5 MG RAPDIS TABLET PO PRN (15:45)
[2020-08-12] MEDS ORDERED: GuaiFENesin/D-METHORPHAN [SUGAR-FREE] 200-20MG/10 ML SYRUP UDCUP PO PRN (15:45)
[2020-08-12] MEDS ORDERED: PROMETHAZINE HCL 25 MG TABLET PO PRN (15:45)
[2020-08-12] MEDS ORDERED: CYANOCOBALAMIN 1,000 MCG/ML VIAL IM ONE (15:45)
[2020-08-12] MEDS ORDERED: LOPERAMIDE HCL 2 MG CAPSULE PO PRN (15:45)
[2020-08-12] MEDS ORDERED: TUBERCULIN, PURIFIED PROTEIN DERIVATIVE 5 TU/0.1 ML SYRINGE ID ONE (15:45)
[2020-08-12] MEDS ORDERED: ACETAMINOPHEN 325 MG TABLET PO PRN (15:45)
[2020-08-12] MEDS ORDERED: PALIPERIDONE PALMITATE 234 MG/1.5 ML SYRINGE IM ONE (15:45)
[2020-08-12] MEDS ORDERED: ZOLPIDEM TARTRATE 10 MG TABLET PO PRN (15:45)
[2020-08-12] MEDS ORDERED: HydrOXYzine PAMOATE 50 MG CAPSULE PO PRN (15:45)
[2020-08-12] MEDS ORDERED: MAGNESIUM HYDROXIDE SUSPENSION 30 ML UDCUP PO PRN (15:45)
[2020-08-12] MEDS ORDERED: LISI-661 PO (18:41)
[2020-08-12] MEDS ORDERED: PNEUMOCOCCAL VACCINE POLYVALENT 0.5 ML VIAL [PPSV23] IM ONE (20:15)
[2020-08-12] MEDS ORDERED: INFLUENZA VIRUS VACCINE QVS 2020-21 (6MO+)/PF 60 MCG/0.5 ML SYRINGE IM ONE (20:15)
[2020-08-12 20:55] VITALS: BP 128/74
[2020-08-12 20:59] VITALS: BP 128/74
[2020-08-12] MEDS ORDERED: OLANZapine 5 MG RAPDIS TABLET PO SCH (21:00)
[2020-08-12 21:59] VITALS: BP 128/78
[2020-08-12 22:44] VITALS: BP 128/70
[2020-08-12 23:44] VITALS: BP 102/59
[2020-08-12] MEDS: THIAMINE 100 MG TABLET PO SCH (23:47)
[2020-08-13] VITALS (8 sets, daily range): BP systolic 100–120; BP diastolic 60–70
[2020-08-13] MEDS ORDERED: DIAZEPAM 10 MG TABLET PO PRN (07:00)
[2020-08-13 08:08] LABS: BASOPHILS % (AUTO) 0.2 % (0.0-2.0); EOSINOPHILS % (AUTO) 3.2 % (1.0-6.0); HEMATOCRIT 40.5 % (41-53); LYMPHOCYTES # (AUTO) 1.4 K/uL (1.0-4.8); LYMPHOCYTES % (AUTO) 51.6 % (22.0-44.0); MEAN CORPUSCULAR HEMOGLOBIN 27.5 pg (26.0-34.0); MEAN CORPUSCULAR VOLUME 86 fL (80-100); MONOCYTES # (AUTO) 0.4 K/uL (0.1-1.0); MONOCYTES % (AUTO) 13.5 % (2.0-9.0); NEUTROPHILS # (AUTO) 0.9 K/uL (1.8-7.7); NEUTROPHILS % (AUTO) 31.5 % (40.0-70.0); PLATELET COUNT (AUTO) 199 K/uL (150-450); RED BLOOD CELL COUNT(AUTO) 4.71 MIL/uL (4.50-5.90); RED CELL DISTRIBUTION WIDTH 17.8 % (11.5-14.5)
[2020-08-13 08:28] LABS: ALANINE AMINOTRANSFERASE 86 U/L (12-78); ALBUMIN 3.2 g/dL (3.4-5.0); ALKALINE PHOSPHATASE 59 U/L (46-116); ANION GAP 6 mmol/L (8-16); ASPARTATE AMINOTRANSFERASE 69 U/L (15-37); BILIRUBIN,TOTAL 0.6 mg/dL (0.1-1.0); CALCIUM, TOTAL 8.6 mg/dL (8.8-10.5); CARBON DIOXIDE 28 mmol/L (22-29); CHLORIDE 104 mmol/L (98-107); CHOL/HDL RATIO 2.2 (4.2-7.3); CHOLESTEROL 183 mg/dL (131-200); CREATININE 0.99 mg/dL (0.60-1.30); GLOMERULAR FILTR. RATE CALC > 60 mL/min (>60); GLUCOSE,RANDOM 78 mg/dL (70-110); HDL CHOLESTEROL 85 mg/dL (40-60); LDL CHOL (CALC.) 87 mg/dL (0-130); POTASSIUM 3.7 mmol/L (3.5-5.1); SODIUM SERUM 138 mmol/L (136-145); THYROID STIMULATING HORMONE 1.34 uIU/mL (0.36-3.74); TOTAL PROTEIN, SERUM 6.7 g/dL (6.4-8.2); TRIGLYCERIDES 54 mg/dL (15-150); UREA NITROGEN, BLOOD 13 mg/dL (7-18)
[2020-08-13 08:44] LABS: HEMOGLOBIN A1C 5.7 % (3.8-5.6)
[2020-08-13] MEDS: OMEGA-3/DHA/EPA/FISH OIL 1,000 MG CAPSULE PO SCH (09:27)
[2020-08-13] MEDS: MULTIVITAMINS WITH MINERALS, THERAPEUTIC TABLET PO SCH (09:27)
[2020-08-13] MEDS: DIAZEPAM 10 MG TABLET PO SCH ×4 (09:27→20:27)
[2020-08-13] MEDS: THIAMINE 100 MG TABLET PO SCH ×2 (09:27→16:48)
[2020-08-13] MEDS: FOLIC ACID 1 MG TABLET PO SCH (09:27)
[2020-08-13] MEDS: NALTREXONE HCL 50 MG TABLET PO SCH (09:47)
[2020-08-13] MEDS: OLANZapine 10 MG RAPDIS TABLET PO SCH (20:27)
[2020-08-14 00:46] VITALS: BP 102/65
[2020-08-14 06:00] VITALS: BP 111/72
[2020-08-14 08:08] VITALS: BP 138/84
[2020-08-14] MEDS: DIAZEPAM 10 MG TABLET PO SCH ×4 (08:58→20:33)
[2020-08-14] MEDS: OMEGA-3/DHA/EPA/FISH OIL 1,000 MG CAPSULE PO SCH (08:58)
[2020-08-14] MEDS: MULTIVITAMINS WITH MINERALS, THERAPEUTIC TABLET PO SCH (08:58)
[2020-08-14] MEDS: THIAMINE 100 MG TABLET PO SCH ×2 (08:58→16:09)
[2020-08-14] MEDS: FOLIC ACID 1 MG TABLET PO SCH (08:58)
[2020-08-14] MEDS: NALTREXONE HCL 50 MG TABLET PO SCH (09:12)
[2020-08-14 12:16] VITALS: BP 138/84
[2020-08-14 16:07] VITALS: BP 115/77
[2020-08-14 16:38] VITALS: BP 115/77
[2020-08-14] MEDS: OLANZapine 10 MG RAPDIS TABLET PO SCH (20:33)
[2020-08-15 01:13] VITALS: BP 110/71
[2020-08-15] MEDS ORDERED: DIAZEPAM 5 MG TABLET PO PRN (07:00)
[2020-08-15 08:20] VITALS: BP 131/83
[2020-08-15] MEDS: DIAZEPAM 5 MG TABLET PO SCH ×2 (09:00→12:14)
[2020-08-15] MEDS ORDERED: FLUoxetine HCL 20 MG CAPSULE PO SCH (09:00)
[2020-08-15] MEDS: THIAMINE 100 MG TABLET PO SCH (09:44)
[2020-08-15] MEDS: NALTREXONE HCL 50 MG TABLET PO SCH (09:44)
[2020-08-15] MEDS: OMEGA-3/DHA/EPA/FISH OIL 1,000 MG CAPSULE PO SCH (09:44)
[2020-08-15] MEDS: FOLIC ACID 1 MG TABLET PO SCH (09:44)
[2020-08-15] MEDS: MULTIVITAMINS WITH MINERALS, THERAPEUTIC TABLET PO SCH (09:44)
[2020-08-15] MEDS ORDERED: DIAZEPAM 10 MG TABLET PO ONE (10:15)
[2020-08-15 11:12] VITALS: BP 131/83
[2020-08-15] MEDS ORDERED: FLUO-191 PO (15:34)
[2020-08-15] MEDS ORDERED: NALT50TA PO (15:34)
[2020-08-15] MEDS ORDERED: OLAN10TA22 PO (15:34)
[2020-08-15] MEDS ORDERED: OMEG-135 PO (15:34)
[2020-08-15] MEDS ORDERED: LOPERAMIDE HCL 2 MG CAPSULE PO PRN (15:45)
[2020-08-16] MEDS ORDERED: DIAZEPAM 5 MG TABLET PO PRN (07:00)
[2020-08-17] MEDS ORDERED: PALIPERIDONE PALMITATE 156 MG/ML SYRINGE IM ONE (09:00)
== END 2020-08-15 21:51 | disposition home or self-care (01) | DRG 750 ==
LOC: B2S 19:46
PROVIDERS: ADMIT Psychiatry & Neurology Psychiatry; ATTEND Psychiatry & Neurology Psychiatry
DX: F20.0 Paranoid schizophrenia (principal); J44.9 Chronic obstructive pulmonary disease, unspecified; F10.20 Alcohol dependence, uncomplicated; Y90.9 Presence of alcohol in blood, level not specified; E78.5 Hyperlipidemia, unspecified; R03.0 Elevated blood-pressure reading, without diagnosis of hypertension; D64.9 Anemia, unspecified; F32.9 Major depressive disorder, single episode, unspecified; R45.851 Suicidal ideations; Z91.5 Personal history of self-harm; Z88.8 Allergy status to other drugs, medicaments and biological substances; Z91.19 Patient's noncompliance with other medical treatment and regimen
CPT/HCPCS: 83036; 84439; 84443; 86592; J3420

== ENCOUNTER 2021-02-02 21:22 | Inpatient (IN) | payer MEDICAID ==
[~2021-02-02] VITALS: Ht 175.3 cm; Wt 80.7 kg
[~2021-02-02 21:22] MED LIST changes: +FLUO-191 PO; +NALT50TA PO; +OLAN10TA22 PO; -OLAN10TA3 PO; +OMEG-135 PO
[2021-02-02] MEDS ORDERED: OLAN10TA74 PO (21:39)
[2021-02-02] MEDS ORDERED: HALOPERIDOL 5 MG TABLET PO PRN (23:00)
[2021-02-02 23:28] LABS: BASOPHILS % (AUTO) 0.6 % (0.0-2.0); EOSINOPHILS % (AUTO) 0.7 % (1.0-6.0); HEMOGLOBIN 14.7 g/dL (13.5-17.5); LYMPHOCYTES # (AUTO) 1.6 K/uL (1.0-4.8); MEAN CORPUSCULAR HEMOGLOBIN 27.3 pg (26.0-34.0); MEAN CORPUSCULAR HGB CONC 32.5 G/dL (31.0-37.0); MEAN CORPUSCULAR VOLUME 84 fL (80-100); MONOCYTES # (AUTO) 0.6 K/uL (0.1-1.0); NEUTROPHILS # (AUTO) 4.2 K/uL (1.8-7.7); NEUTROPHILS % (AUTO) 64.7 % (40.0-70.0); PLATELET COUNT (AUTO) 182 K/uL (150-450); RED BLOOD CELL COUNT(AUTO) 5.36 MIL/uL (4.50-5.90); RED CELL DISTRIBUTION WIDTH 16.1 % (11.5-14.5)
[2021-02-02 23:37] LABS: AMPHET/METH SCREEN,URINE NEGATIVE (NEGATIVE); BARBITURATE SCREEN, URINE NEGATIVE (NEGATIVE); BENZODIAZEPINES SCREEN,URINE NEGATIVE (NEGATIVE); CANNABINOID SCREEN,URINE POSITIVE (NEGATIVE); COCAINE SCREEN,URINE NEGATIVE (NEGATIVE); METHADONE SCREEN, URINE NEGATIVE (NEGATIVE); OPIATE SCREEN,URINE NEGATIVE (NEGATIVE)
[2021-02-02 23:38] LABS: PHENCYCLIDINE SCREEN,URINE NEGATIVE (NEGATIVE)
[2021-02-02 23:38] LABS: ANION GAP 10 mmol/L (8-16); CALCIUM, TOTAL 8.5 mg/dL (8.8-10.5); CARBON DIOXIDE 29 mmol/L (22-29); CHLORIDE 99 mmol/L (98-107); CREATININE 1.33 mg/dL (0.60-1.30); GLOMERULAR FILTR. RATE CALC > 60 mL/min (>60); GLUCOSE,RANDOM 117 mg/dL (70-110); SODIUM SERUM 138 mmol/L (136-145); UREA NITROGEN, BLOOD 16 mg/dL (7-18)
[2021-02-02 23:42] LABS: APPEARANCE,URINE CLEAR (CLEAR); BILIRUBIN,URINE NEGATIVE (NEGATIVE); GLUCOSE, URINE (UA) NEGATIVE (NEGATIVE); KETONES,URINE NEGATIVE (NEGATIVE); LEUKOCYTE ESTERASE ,URINE NEGATIVE (NEGATIVE); NITRATE,URINE NEGATIVE (NEGATIVE); OCCULT BLOOD,URINE SMALL (NEGATIVE); PH,URINE 5.5 (5.0-8.0); PROTEIN,URINE NEGATIVE (NEGATIVE); UROBILINOGEN,URINE 0.2 mg/dL (<=1.0)
[2021-02-02 23:45] LABS: ALANINE AMINOTRANSFERASE 59 U/L (12-78); ALBUMIN 4.2 g/dL (3.4-5.0); ALKALINE PHOSPHATASE 60 U/L (46-116); ASPARTATE AMINOTRANSFERASE 127 U/L (15-37); BILIRUBIN,TOTAL 0.7 mg/dL (0.1-1.0); TOTAL PROTEIN, SERUM 7.6 g/dL (6.4-8.2)
[2021-02-02 23:46] LABS: COVID AG,FIA SOURCE NASOPHARYNGEAL
[2021-02-03 00:05] LABS: BACTERIA,URINE None Seen /HPF (None Seen); RBC,URINE 0-2 /HPF (0-2); SQUAMOUS EPITHELIAL CELL,UR Rare /LPF (None Seen); WBC,URINE 0-2 /HPF (0-5)
[2021-02-03 03:11] LABS: CHOLESTEROL 215 mg/dL (131-200); HDL CHOLESTEROL 109 mg/dL (40-60); LDL CHOL (CALC.) 93 mg/dL (0-130); TRIGLYCERIDES 64 mg/dL (15-150)
[2021-02-03] MEDS ORDERED: ACETAMINOPHEN 500 MG TABLET PO ONE (04:00)
[2021-02-03 17:05] VITALS: BP 133/95
[2021-02-03] MEDS: ZOLPIDEM TARTRATE 10 MG TABLET PO PRN (22:02)
[2021-02-04 01:53] VITALS: BP 125/74
[2021-02-04] MEDS ORDERED: PNEUMOCOCCAL VACCINE POLYVALENT 0.5 ML VIAL [PPSV23] IM. ONE (06:30)
[2021-02-04] MEDS ORDERED: CloNIDine HCL 0.1 MG TABLET PO PRN (07:45)
[2021-02-04] MEDS ORDERED: ACETAMINOPHEN 325 MG TABLET PO PRN (07:45)
[2021-02-04] MEDS ORDERED: ONDANSETRON HCL 4 MG TABLET PO PRN (07:45)
[2021-02-04] MEDS ORDERED: PETROLATUM,WHITE 28 GM JELLY TP PRN (07:45)
[2021-02-04] MEDS ORDERED: MAG HYDROX/AL HYDROX/SIMETH ES 30 ML SUSPENSION UDCUP PO PRN (07:45)
[2021-02-04] MEDS ORDERED: LOPERAMIDE HCL 2 MG CAPSULE PO PRN (07:45)
[2021-02-04] MEDS ORDERED: DOCUSATE SODIUM 100 MG CAPSULE PO PRN (07:45)
[2021-02-04] MEDS ORDERED: NICOTINE 14 MG/24 HOUR PATCH TD PRN (07:45)
[2021-02-04] MEDS ORDERED: GuaiFENesin/D-METHORPHAN [SUGAR-FREE] 200-20MG/10 ML SYRUP UDCUP PO PRN (07:45)
[2021-02-04] MEDS ORDERED: MAGNESIUM HYDROXIDE SUSPENSION 30 ML UDCUP PO PRN (07:45)
[2021-02-04] MEDS ORDERED: ALBUTEROL SULFATE HFA 90 MCG/PUFF 8 GM INHALER IH PRN (07:45)
[2021-02-04] MEDS ORDERED: IBUPROFEN 400 MG TABLET PO PRN (07:45)
[2021-02-04 08:21] VITALS: BP 123/66
[2021-02-04] MEDS: LISINOPRIL 10 MG TABLET PO SCH (08:33)
[2021-02-04] MEDS: LORazepam 2 MG TABLET PO PRN (13:33)
[2021-02-04 16:44] VITALS: BP 103/73
[2021-02-04] MEDS: OLANZapine 5 MG TABLET PO SCH (16:47)
[2021-02-05 04:49] VITALS: BP 121/68
[2021-02-05] MEDS: OLANZapine 5 MG TABLET PO SCH (08:36)
[2021-02-05] MEDS: SERTRALINE HCL 50 MG TABLET PO SCH (08:36)
[2021-02-05 08:52] VITALS: BP 128/74
[2021-02-05] MEDS: LISINOPRIL 10 MG TABLET PO SCH (09:20)
[2021-02-05 16:10] VITALS: BP 116/64
[2021-02-05] MEDS: OLANZapine 10 MG TABLET PO SCH (17:30)
[2021-02-06 01:14] VITALS: BP 121/70
[2021-02-06] MEDS: SERTRALINE HCL 50 MG TABLET PO SCH (08:22)
[2021-02-06] MEDS: LISINOPRIL 10 MG TABLET PO SCH (08:22)
[2021-02-06] MEDS: OLANZapine 10 MG TABLET PO SCH ×2 (08:22→16:04)
[2021-02-06 08:32] VITALS: BP 107/63
[2021-02-06] MEDS: LORazepam 2 MG TABLET PO PRN (16:04)
[2021-02-06 16:28] VITALS: BP 128/82
[2021-02-07 01:51] VITALS: BP 111/62
[2021-02-07 08:53] VITALS: BP 133/89
[2021-02-07] MEDS: LISINOPRIL 10 MG TABLET PO SCH (09:05)
[2021-02-07] MEDS: SERTRALINE HCL 50 MG TABLET PO SCH (09:05)
[2021-02-07] MEDS: OLANZapine 10 MG TABLET PO SCH ×2 (09:05→16:39)
[2021-02-07] MEDS: LORazepam 2 MG TABLET PO PRN (14:49)
[2021-02-07 16:36] VITALS: BP 122/66
[2021-02-07] MEDS ORDERED: DiphenhydrAMINE HCL 25 MG CAPSULE PO ONE (18:00)
[2021-02-07] MEDS: ZOLPIDEM TARTRATE 10 MG TABLET PO PRN (22:45)
[2021-02-08 01:38] VITALS: BP 124/86
[2021-02-08] MEDS: LORazepam 2 MG TABLET PO PRN (05:00)
[2021-02-08 08:20] LABS: COVID AG,FIA SOURCE NASOPHARYNGEAL
[2021-02-08 08:21] VITALS: BP 120/70
[2021-02-08] MEDS: OLANZapine 10 MG TABLET PO SCH ×2 (08:33→16:05)
[2021-02-08] MEDS: BENZTROPINE MESYLATE 2 MG TABLET PO SCH ×2 (08:33→16:05)
[2021-02-08] MEDS: SERTRALINE HCL 50 MG TABLET PO SCH (08:33)
[2021-02-08] MEDS: LISINOPRIL 10 MG TABLET PO SCH (08:33)
[2021-02-08 16:17] VITALS: BP 144/75
[2021-02-09] VITALS: BP 132/75
[2021-02-09] MEDS: ZOLPIDEM TARTRATE 10 MG TABLET PO PRN (00:49)
[2021-02-09 08:13] VITALS: BP 131/66
[2021-02-09] MEDS: LISINOPRIL 10 MG TABLET PO SCH (08:38)
[2021-02-09] MEDS: SERTRALINE HCL 50 MG TABLET PO SCH (08:38)
[2021-02-09] MEDS: OLANZapine 10 MG TABLET PO SCH ×2 (08:39→16:42)
[2021-02-09] MEDS: BENZTROPINE MESYLATE 2 MG TABLET PO SCH ×2 (08:39→16:42)
[2021-02-09] MEDS: LORazepam 2 MG TABLET PO PRN (15:58)
[2021-02-09 16:26] VITALS: BP 126/76
[2021-02-10] VITALS: BP 124/98
[2021-02-10] MEDS: ZOLPIDEM TARTRATE 10 MG TABLET PO PRN (00:04)
[2021-02-10] MEDS: LISINOPRIL 10 MG TABLET PO SCH (08:11)
[2021-02-10] MEDS: BENZTROPINE MESYLATE 2 MG TABLET PO SCH (08:11)
[2021-02-10] MEDS: SERTRALINE HCL 50 MG TABLET PO SCH (08:11)
[2021-02-10 08:29] VITALS: BP 173/86
[2021-02-10] MEDS: OLANZapine 10 MG TABLET PO SCH (09:00)
[2021-02-10] MEDS ORDERED: OLAN10TA74 PO (14:06)
[2021-02-10] MEDS ORDERED: BENZ2TAB10 PO (14:07)
[2021-02-10] MEDS ORDERED: LISI-893 PO (14:08)
[2021-02-10] MEDS ORDERED: SERT-158 PO (14:08)
== END 2021-02-10 16:30 | disposition home or self-care (01) | DRG 750 ==
LOC: EMS 21:22 → B2S 02-03 11:41
PROVIDERS: ADMIT Psychiatry & Neurology Psychiatry; ATTEND Psychiatry & Neurology Psychiatry
DX: F25.9 Schizoaffective disorder, unspecified (principal); R45.851 Suicidal ideations; Z59.0 Homelessness; E78.00 Pure hypercholesterolemia, unspecified; E78.5 Hyperlipidemia, unspecified; Z20.822 Contact with and (suspected) exposure to COVID-19; F41.0 Panic disorder [episodic paroxysmal anxiety]; I10 Essential (primary) hypertension; J45.909 Unspecified asthma, uncomplicated; Z87.891 Personal history of nicotine dependence; Z91.14 Patient's other noncompliance with medication regimen
CPT/HCPCS: 80053; 80061; 81001; 85025; 99285; G0480

== ENCOUNTER 2021-02-25 08:17 | Inpatient (IN) | payer MEDICAID ==
[~2021-02-25] VITALS: Ht 175.3 cm; Wt 80.0 kg
[~2021-02-25 08:17] MED LIST changes: +BENZ2TAB10 PO; -FLUO-191 PO; +LISI-893 PO; -NALT50TA PO; -OLAN10TA22 PO; +OLAN10TA74 PO; -OMEG-135 PO; +SERT-158 PO
[2021-02-25 09:00] LABS: BASOPHILS % (AUTO) 0.5 % (0.0-2.0); EOSINOPHILS % (AUTO) 0.3 % (1.0-6.0); HEMOGLOBIN 14.6 g/dL (13.5-17.5); LYMPHOCYTES # (AUTO) 1.4 K/uL (1.0-4.8); LYMPHOCYTES % (AUTO) 19.1 % (22.0-44.0); MEAN CORPUSCULAR HEMOGLOBIN 26.9 pg (26.0-34.0); MEAN CORPUSCULAR HGB CONC 31.8 G/dL (31.0-37.0); MEAN CORPUSCULAR VOLUME 85 fL (80-100); MONOCYTES # (AUTO) 0.5 K/uL (0.1-1.0); MONOCYTES % (AUTO) 7.1 % (2.0-9.0); NEUTROPHILS # (AUTO) 5.3 K/uL (1.8-7.7); PLATELET COUNT (AUTO) 236 K/uL (150-450); RED BLOOD CELL COUNT(AUTO) 5.44 MIL/uL (4.50-5.90); RED CELL DISTRIBUTION WIDTH 16.6 % (11.5-14.5)
[2021-02-25 09:08] LABS: ANION GAP 15 mmol/L (8-16); CALCIUM, TOTAL 8.6 mg/dL (8.8-10.5); CARBON DIOXIDE 25 mmol/L (22-29); CHLORIDE 102 mmol/L (98-107); CREATININE 1.36 mg/dL (0.60-1.30); GLOMERULAR FILTR. RATE CALC > 60 mL/min (>60); GLUCOSE,RANDOM 67 mg/dL (70-110); SODIUM SERUM 142 mmol/L (136-145); UREA NITROGEN, BLOOD 18 mg/dL (7-18)
[2021-02-25 09:13] LABS: ALANINE AMINOTRANSFERASE 40 U/L (12-78); ALBUMIN 3.9 g/dL (3.4-5.0); ALKALINE PHOSPHATASE 56 U/L (46-116); ASPARTATE AMINOTRANSFERASE 55 U/L (15-37); BILIRUBIN,TOTAL 0.4 mg/dL (0.1-1.0); TOTAL PROTEIN, SERUM 7.6 g/dL (6.4-8.2)
[2021-02-25] MEDS ORDERED: LORazepam 2 MG/ML VIAL IM ONE (09:15)
[2021-02-25] MEDS ORDERED: DiphenhydrAMINE HCL 50 MG/ML VIAL IM ONE (09:15)
[2021-02-25] MEDS ORDERED: HALOPERIDOL LACTATE 5 MG/ML VIAL IM ONE (09:15)
[2021-02-25 11:47] LABS: COVID AG,FIA SOURCE NASOPHARYNGEAL
[2021-02-25] MEDS ORDERED: ZOLPIDEM TARTRATE 10 MG TABLET PO PRN (16:15)
[2021-02-25 21:25] VITALS: BP 133/84
[2021-02-25 21:35] VITALS: BP 133/84
[2021-02-25 22:30] VITALS: BP 128/82
[2021-02-25 23:00] VITALS: BP 128/82
[2021-02-26 05:57] VITALS: BP 106/71
[2021-02-26 07:55] LABS: CHOL/HDL RATIO 2.4 (4.2-7.3); FREE T4 (FREE THYROXINE) 0.78 ng/dL (0.76-1.46); THYROID STIMULATING HORMONE 0.52 uIU/mL (0.36-3.74)
[2021-02-26] MEDS ORDERED: PETROLATUM,WHITE 28 GM JELLY TP PRN (08:45)
[2021-02-26] MEDS ORDERED: GuaiFENesin/D-METHORPHAN [SUGAR-FREE] 200-20MG/10 ML SYRUP UDCUP PO PRN (08:45)
[2021-02-26] MEDS ORDERED: LOPERAMIDE HCL 2 MG CAPSULE PO PRN (08:45)
[2021-02-26] MEDS ORDERED: NICOTINE 14 MG/24 HOUR PATCH TD PRN (08:45)
[2021-02-26] MEDS ORDERED: ALBUTEROL SULFATE HFA 90 MCG/PUFF 8 GM INHALER IH PRN (08:45)
[2021-02-26] MEDS ORDERED: ACETAMINOPHEN 325 MG TABLET PO PRN (08:45)
[2021-02-26] MEDS ORDERED: MAG HYDROX/AL HYDROX/SIMETH ES 30 ML SUSPENSION UDCUP PO PRN (08:45)
[2021-02-26] MEDS ORDERED: ONDANSETRON HCL 4 MG TABLET PO PRN (08:45)
[2021-02-26] MEDS ORDERED: DOCUSATE SODIUM 100 MG CAPSULE PO PRN (08:45)
[2021-02-26] MEDS ORDERED: IBUPROFEN 400 MG TABLET PO PRN (08:45)
[2021-02-26] MEDS ORDERED: MAGNESIUM HYDROXIDE SUSPENSION 30 ML UDCUP PO PRN (08:45)
[2021-02-26] MEDS ORDERED: CloNIDine HCL 0.1 MG TABLET PO PRN (08:45)
[2021-02-26] MEDS: LISINOPRIL 10 MG TABLET PO SCH (09:11)
[2021-02-26] MEDS: LORazepam 2 MG TABLET PO PRN (09:15)
[2021-02-26] MEDS: HALOPERIDOL 5 MG TABLET PO PRN (09:15)
[2021-02-26 10:30] VITALS: BP 116/69
[2021-02-26 16:26] VITALS: BP 118/70
[2021-02-26 16:27] VITALS: BP 118/76
[2021-02-26 20:05] VITALS: BP 116/68
[2021-02-27 00:20] VITALS: BP 109/64
[2021-02-27 07:09] VITALS: BP 119/68
[2021-02-27 08:22] VITALS: BP 124/68
[2021-02-27] MEDS: LISINOPRIL 10 MG TABLET PO SCH (09:17)
[2021-02-27] MEDS: SERTRALINE HCL 50 MG TABLET PO SCH (11:07)
[2021-02-27] MEDS: BENZTROPINE MESYLATE 2 MG TABLET PO SCH ×2 (11:07→16:26)
[2021-02-27] MEDS: OLANZapine 10 MG TABLET PO SCH ×2 (11:07→16:26)
[2021-02-27 12:37] VITALS: BP 124/68
[2021-02-27 16:22] VITALS: BP 114/66
[2021-02-27] MEDS: LORazepam 2 MG TABLET PO PRN (16:26)
[2021-02-27 16:37] VITALS: BP 120/70
[2021-02-28 06:08] VITALS: BP 110/61
[2021-02-28 06:17] VITALS: BP 117/68
[2021-02-28 08:21] VITALS: BP 134/88
[2021-02-28] MEDS: LISINOPRIL 10 MG TABLET PO SCH (09:46)
[2021-02-28] MEDS: SERTRALINE HCL 50 MG TABLET PO SCH (09:46)
[2021-02-28] MEDS: OLANZapine 10 MG TABLET PO SCH ×2 (09:46→16:31)
[2021-02-28] MEDS: BENZTROPINE MESYLATE 2 MG TABLET PO SCH ×2 (09:46→17:32)
[2021-02-28 16:10] VITALS: BP 126/71
[2021-02-28] MEDS: LORazepam 2 MG TABLET PO PRN (16:31)
[2021-02-28] MEDS: HALOPERIDOL 5 MG TABLET PO PRN (17:36)
[2021-03-01 00:21] VITALS: BP 131/77
[2021-03-01] MEDS: OLANZapine 10 MG TABLET PO SCH (08:29)
[2021-03-01] MEDS: SERTRALINE HCL 50 MG TABLET PO SCH (08:30)
[2021-03-01] MEDS: LISINOPRIL 10 MG TABLET PO SCH (08:30)
[2021-03-01] MEDS: BENZTROPINE MESYLATE 2 MG TABLET PO SCH (08:30)
[2021-03-01 08:31] VITALS: BP 124/78
[2021-03-01] MEDS: LORazepam 2 MG TABLET PO PRN (10:19)
== END 2021-03-01 13:00 | disposition home or self-care (01) | DRG 750 ==
LOC: EMS 08:21 → B3A 17:46
PROVIDERS: ATTEND Psychiatry & Neurology Psychiatry
DX: F25.0 Schizoaffective disorder, bipolar type (principal); R45.850 Homicidal ideations; R45.851 Suicidal ideations; E78.5 Hyperlipidemia, unspecified; F12.90 Cannabis use, unspecified, uncomplicated; I10 Essential (primary) hypertension; J45.909 Unspecified asthma, uncomplicated; Z87.891 Personal history of nicotine dependence; Z91.14 Patient's other noncompliance with medication regimen; Z20.822 Contact with and (suspected) exposure to COVID-19
CPT/HCPCS: 80053; 80061; 84439; 84443; 85025; 99285; G0480; J1200; J1630; J2060

== ENCOUNTER 2021-03-09 07:45 | Emergency (ER) | payer MEDICAID ==
[~2021-03-09] VITALS: Ht 177.8 cm; Wt 81.8 kg
[2021-03-09 07:47] VITALS: BP 143/85
[2021-03-09 08:22] LABS: AMPHET/METH SCREEN,URINE NEGATIVE (NEGATIVE); BARBITURATE SCREEN, URINE NEGATIVE (NEGATIVE); BENZODIAZEPINES SCREEN,URINE NEGATIVE (NEGATIVE); CANNABINOID SCREEN,URINE POSITIVE (NEGATIVE); COCAINE SCREEN,URINE NEGATIVE (NEGATIVE); METHADONE SCREEN, URINE NEGATIVE (NEGATIVE); OPIATE SCREEN,URINE NEGATIVE (NEGATIVE); PHENCYCLIDINE SCREEN,URINE POSITIVE (NEGATIVE)
[2021-03-09 08:27] LABS: BASOPHILS % (AUTO) 0.5 % (0.0-2.0); EOSINOPHILS % (AUTO) 2.3 % (1.0-6.0); HEMATOCRIT 45.9 % (41-53); LYMPHOCYTES # (AUTO) 0.9 K/uL (1.0-4.8); MEAN CORPUSCULAR HEMOGLOBIN 27.7 pg (26.0-34.0); MEAN CORPUSCULAR HGB CONC 32.7 G/dL (31.0-37.0); MEAN CORPUSCULAR VOLUME 85 fL (80-100); MONOCYTES # (AUTO) 0.4 K/uL (0.1-1.0); MONOCYTES % (AUTO) 8.9 % (2.0-9.0); NEUTROPHILS % (AUTO) 67.3 % (40.0-70.0); PLATELET COUNT (AUTO) 180 K/uL (150-450); RED BLOOD CELL COUNT(AUTO) 5.42 MIL/uL (4.50-5.90); RED CELL DISTRIBUTION WIDTH 15.7 % (11.5-14.5)
[2021-03-09 08:35] LABS: ANION GAP 3 mmol/L (8-16); CALCIUM, TOTAL 9.2 mg/dL (8.8-10.5); CARBON DIOXIDE 31 mmol/L (22-29); CHLORIDE 103 mmol/L (98-107); CREATININE 1.23 mg/dL (0.60-1.30); GLOMERULAR FILTR. RATE CALC > 60 mL/min (>60); GLUCOSE,RANDOM 80 mg/dL (70-110); SODIUM SERUM 137 mmol/L (136-145); UREA NITROGEN, BLOOD 18 mg/dL (7-18)
[2021-03-09 08:41] LABS: ALANINE AMINOTRANSFERASE 37 U/L (12-78); ALBUMIN 3.9 g/dL (3.4-5.0); ALKALINE PHOSPHATASE 65 U/L (46-116); ASPARTATE AMINOTRANSFERASE 38 U/L (15-37); BILIRUBIN,TOTAL 0.8 mg/dL (0.1-1.0); TOTAL PROTEIN, SERUM 7.5 g/dL (6.4-8.2)
== END 2021-03-09 10:34 | disposition home or self-care (01) ==
LOC: EMS 07:48
DX: F20.9 Schizophrenia, unspecified (principal); F17.210 Nicotine dependence, cigarettes, uncomplicated; F12.90 Cannabis use, unspecified, uncomplicated; F15.90 Other stimulant use, unspecified, uncomplicated
CPT/HCPCS: 36415; 80053; 80307; 85025; 99284; G0480

== ENCOUNTER 2021-03-16 06:58 | Inpatient (IN) | payer MEDICAID ==
[~2021-03-16] VITALS: Ht 172.7 cm; Wt 78.6 kg
[2021-03-16 07:30] LABS: BASOPHILS % (AUTO) 0.5 % (0.0-2.0); EOSINOPHILS % (AUTO) 5.2 % (1.0-6.0); HEMATOCRIT 44.4 % (41-53); HEMOGLOBIN 14.8 g/dL (13.5-17.5); LYMPHOCYTES # (AUTO) 0.7 K/uL (1.0-4.8); LYMPHOCYTES % (AUTO) 11.1 % (22.0-44.0); MEAN CORPUSCULAR HEMOGLOBIN 27.9 pg (26.0-34.0); MEAN CORPUSCULAR HGB CONC 33.4 G/dL (31.0-37.0); MEAN CORPUSCULAR VOLUME 84 fL (80-100); MONOCYTES # (AUTO) 0.5 K/uL (0.1-1.0); MONOCYTES % (AUTO) 7.7 % (2.0-9.0); NEUTROPHILS % (AUTO) 75.5 % (40.0-70.0); PLATELET COUNT (AUTO) 242 K/uL (150-450)
[2021-03-16 07:38] LABS: ANION GAP 5 mmol/L (8-16); CALCIUM, TOTAL 9.2 mg/dL (8.8-10.5); CARBON DIOXIDE 31 mmol/L (22-29); CHLORIDE 102 mmol/L (98-107); CREATININE 1.09 mg/dL (0.60-1.30); GLOMERULAR FILTR. RATE CALC > 60 mL/min (>60); GLUCOSE,RANDOM 89 mg/dL (70-110); POTASSIUM 4.2 mmol/L (3.5-5.1); SODIUM SERUM 138 mmol/L (136-145); UREA NITROGEN, BLOOD 15 mg/dL (7-18)
[2021-03-16 07:44] LABS: ALANINE AMINOTRANSFERASE 48 U/L (12-78); ALBUMIN 3.7 g/dL (3.4-5.0); ALKALINE PHOSPHATASE 72 U/L (46-116); ASPARTATE AMINOTRANSFERASE 64 U/L (15-37); BILIRUBIN,TOTAL 0.9 mg/dL (0.1-1.0); TOTAL PROTEIN, SERUM 7.4 g/dL (6.4-8.2)
[2021-03-16 10:28] LABS: COVID AG,FIA SOURCE NASOPHARYNGEAL
[2021-03-16 21:24] LABS: AMPHET/METH SCREEN,URINE POSITIVE (NEGATIVE); BARBITURATE SCREEN, URINE NEGATIVE (NEGATIVE); BENZODIAZEPINES SCREEN,URINE NEGATIVE (NEGATIVE); CANNABINOID SCREEN,URINE POSITIVE (NEGATIVE); COCAINE SCREEN,URINE NEGATIVE (NEGATIVE); METHADONE SCREEN, URINE NEGATIVE (NEGATIVE); OPIATE SCREEN,URINE NEGATIVE (NEGATIVE); PHENCYCLIDINE SCREEN,URINE NEGATIVE (NEGATIVE)
[2021-03-16 22:10] VITALS: BP 126/75
[2021-03-16] MEDS ORDERED: PNEUMOCOCCAL VACCINE POLYVALENT 0.5 ML VIAL [PPSV23] IM. ONE (22:15)
[2021-03-17] MEDS ORDERED: NICOTINE 14 MG/24 HOUR PATCH TD PRN (07:15)
[2021-03-17] MEDS ORDERED: CloNIDine HCL 0.1 MG TABLET PO PRN (07:15)
[2021-03-17] MEDS ORDERED: ONDANSETRON HCL 4 MG TABLET PO PRN (07:15)
[2021-03-17] MEDS ORDERED: PETROLATUM,WHITE 28 GM JELLY TP PRN (07:15)
[2021-03-17] MEDS ORDERED: ACETAMINOPHEN 325 MG TABLET PO PRN (07:15)
[2021-03-17] MEDS ORDERED: DOCUSATE SODIUM 100 MG CAPSULE PO PRN (07:15)
[2021-03-17] MEDS ORDERED: ALBUTEROL SULFATE HFA 90 MCG/PUFF 8 GM INHALER IH PRN (07:15)
[2021-03-17] MEDS ORDERED: MAG HYDROX/AL HYDROX/SIMETH ES 30 ML SUSPENSION UDCUP PO PRN (07:15)
[2021-03-17] MEDS ORDERED: GuaiFENesin/D-METHORPHAN [SUGAR-FREE] 200-20MG/10 ML SYRUP UDCUP PO PRN (07:15)
[2021-03-17] MEDS ORDERED: LOPERAMIDE HCL 2 MG CAPSULE PO PRN (07:15)
[2021-03-17] MEDS ORDERED: MAGNESIUM HYDROXIDE SUSPENSION 30 ML UDCUP PO PRN (07:15)
[2021-03-17] MEDS ORDERED: IBUPROFEN 400 MG TABLET PO PRN (07:15)
[2021-03-17 07:41] LABS: CHOL/HDL RATIO 1.9 (4.2-7.3)
[2021-03-17 08:04] VITALS: BP 143/103
[2021-03-17] MEDS: LISINOPRIL 10 MG TABLET PO SCH (08:15)
[2021-03-17] MEDS: BENZTROPINE MESYLATE 2 MG TABLET PO SCH ×2 (11:45→16:34)
[2021-03-17] MEDS: OLANZapine 10 MG TABLET PO SCH ×2 (11:45→16:34)
[2021-03-17] MEDS: SERTRALINE HCL 50 MG TABLET PO SCH ×2 (11:45→16:34)
[2021-03-17 14:13] VITALS: BP 145/78
[2021-03-17 16:15] VITALS: BP 112/75
[2021-03-17] MEDS: ZOLPIDEM TARTRATE 10 MG TABLET PO PRN (20:44)
[2021-03-18 08:13] VITALS: BP 121/76
[2021-03-18] MEDS: LISINOPRIL 10 MG TABLET PO SCH (09:09)
[2021-03-18] MEDS: BENZTROPINE MESYLATE 2 MG TABLET PO SCH ×2 (09:10→16:24)
[2021-03-18] MEDS: SERTRALINE HCL 50 MG TABLET PO SCH ×2 (09:10→16:24)
[2021-03-18] MEDS: OLANZapine 10 MG TABLET PO SCH ×2 (09:10→16:24)
[2021-03-18 16:00] VITALS: BP_SYST 103; BP_SYST 113; BP_DIAS 63; BP_DIAS 66
[2021-03-18] MEDS: LORazepam 2 MG TABLET PO PRN ×2 (18:30→22:38)
[2021-03-18] MEDS: ZOLPIDEM TARTRATE 10 MG TABLET PO PRN (20:39)
[2021-03-18] MEDS: HALOPERIDOL 5 MG TABLET PO PRN (20:39)
[2021-03-19] MEDS: LORazepam 2 MG TABLET PO PRN (10:13)
[2021-03-19] MEDS: OLANZapine 10 MG TABLET PO SCH ×2 (10:13→16:21)
[2021-03-19] MEDS: LISINOPRIL 10 MG TABLET PO SCH (10:13)
[2021-03-19] MEDS: SERTRALINE HCL 50 MG TABLET PO SCH ×2 (10:13→16:21)
[2021-03-19] MEDS: BENZTROPINE MESYLATE 2 MG TABLET PO SCH ×2 (10:13→16:21)
[2021-03-19 10:19] VITALS: BP 122/84
[2021-03-19 16:10] VITALS: BP 117/78
[2021-03-19] MEDS: HALOPERIDOL 5 MG TABLET PO PRN ×2 (16:21→20:43)
[2021-03-19] MEDS: ZOLPIDEM TARTRATE 10 MG TABLET PO PRN (20:43)
[2021-03-20 08:40] VITALS: BP 138/86
[2021-03-20] MEDS: LORazepam 2 MG TABLET PO PRN (08:49)
[2021-03-20] MEDS: OLANZapine 10 MG TABLET PO SCH (08:49)
[2021-03-20] MEDS: LISINOPRIL 10 MG TABLET PO SCH (08:49)
[2021-03-20] MEDS: BENZTROPINE MESYLATE 2 MG TABLET PO SCH (08:49)
[2021-03-20] MEDS: SERTRALINE HCL 50 MG TABLET PO SCH (08:49)
[2021-03-20] MEDS: HALOPERIDOL 5 MG TABLET PO PRN (08:50)
== END 2021-03-20 13:30 | disposition home or self-care (01) | DRG 750 ==
LOC: EMS 06:58 → 3EC 20:40
PROVIDERS: ADMIT Psychiatry & Neurology Child & Adolescent Psychiatry; ATTEND Psychiatry & Neurology Child & Adolescent Psychiatry
DX: F20.9 Schizophrenia, unspecified (principal); R45.851 Suicidal ideations; Z59.0 Homelessness; Z20.822 Contact with and (suspected) exposure to COVID-19; E78.5 Hyperlipidemia, unspecified; F10.10 Alcohol abuse, uncomplicated; F15.90 Other stimulant use, unspecified, uncomplicated; F17.200 Nicotine dependence, unspecified, uncomplicated; I10 Essential (primary) hypertension; J45.909 Unspecified asthma, uncomplicated
CPT/HCPCS: 80053; 80061; 85025; 99285; G0480

== ENCOUNTER 2021-04-17 12:03 | Inpatient (IN) | payer MEDICAID ==
[~2021-04-17] VITALS: Ht 172.7 cm; Wt 77.6 kg
[2021-04-17] MEDS ORDERED: OLANZapine 5 MG RAPDIS TABLET PO ONE (14:45)
[2021-04-17 15:27] LABS: AMPHET/METH SCREEN,URINE POSITIVE (NEGATIVE); BARBITURATE SCREEN, URINE NEGATIVE (NEGATIVE); BENZODIAZEPINES SCREEN,URINE NEGATIVE (NEGATIVE); CANNABINOID SCREEN,URINE POSITIVE (NEGATIVE); COCAINE SCREEN,URINE NEGATIVE (NEGATIVE); METHADONE SCREEN, URINE NEGATIVE (NEGATIVE); OPIATE SCREEN,URINE NEGATIVE (NEGATIVE)
[2021-04-17 15:30] LABS: PHENCYCLIDINE SCREEN,URINE NEGATIVE (NEGATIVE)
[2021-04-17 15:32] LABS: BASOPHILS % (AUTO) 0.7 % (0.0-2.0); EOSINOPHILS % (AUTO) 2.3 % (1.0-6.0); HEMATOCRIT 41.2 % (41-53); HEMOGLOBIN 13.3 g/dL (13.5-17.5); LYMPHOCYTES # (AUTO) 1.2 K/uL (1.0-4.8); LYMPHOCYTES % (AUTO) 31.4 % (22.0-44.0); MEAN CORPUSCULAR HEMOGLOBIN 27.4 pg (26.0-34.0); MEAN CORPUSCULAR HGB CONC 32.3 G/dL (31.0-37.0); MEAN CORPUSCULAR VOLUME 85 fL (80-100); MONOCYTES # (AUTO) 0.4 K/uL (0.1-1.0); MONOCYTES % (AUTO) 10.9 % (2.0-9.0); NEUTROPHILS # (AUTO) 2.1 K/uL (1.8-7.7); NEUTROPHILS % (AUTO) 54.7 % (40.0-70.0); PLATELET COUNT (AUTO) 191 K/uL (150-450); RED BLOOD CELL COUNT(AUTO) 4.85 MIL/uL (4.50-5.90); RED CELL DISTRIBUTION WIDTH 17.9 % (11.5-14.5)
[2021-04-17 15:41] LABS: ANION GAP 5 mmol/L (8-16); CALCIUM, TOTAL 8.5 mg/dL (8.8-10.5); CARBON DIOXIDE 30 mmol/L (22-29); CHLORIDE 105 mmol/L (98-107); CREATININE 0.98 mg/dL (0.60-1.30); GLOMERULAR FILTR. RATE CALC > 60 mL/min (>60); GLUCOSE,RANDOM 72 mg/dL (70-110); POTASSIUM 4.2 mmol/L (3.5-5.1); SODIUM SERUM 140 mmol/L (136-145); UREA NITROGEN, BLOOD 12 mg/dL (7-18)
[2021-04-17 15:47] LABS: ALANINE AMINOTRANSFERASE 50 U/L (12-78); ALBUMIN 3.6 g/dL (3.4-5.0); ALKALINE PHOSPHATASE 65 U/L (46-116); ASPARTATE AMINOTRANSFERASE 64 U/L (15-37); BILIRUBIN,TOTAL 0.6 mg/dL (0.1-1.0); TOTAL PROTEIN, SERUM 7.3 g/dL (6.4-8.2)
[2021-04-17 16:49] LABS: COVID AG,FIA SOURCE NASOPHARYNGEAL
[2021-04-17] MEDS ORDERED: ZOLPIDEM TARTRATE 10 MG TABLET PO PRN (17:15)
[2021-04-17 19:15] VITALS: BP 148/78
[2021-04-17] MEDS: LORazepam 2 MG TABLET PO PRN (19:27)
[2021-04-17] MEDS: HALOPERIDOL 5 MG TABLET PO PRN (19:27)
[2021-04-18 04:24] VITALS: BP 140/74
[2021-04-18 07:59] LABS: CHOL/HDL RATIO 1.8 (4.2-7.3)
[2021-04-18] MEDS: HALOPERIDOL 5 MG TABLET PO PRN ×2 (08:00→16:39)
[2021-04-18] MEDS: LORazepam 2 MG TABLET PO PRN ×2 (08:00→16:39)
[2021-04-18 08:12] VITALS: BP 108/61
[2021-04-18] MEDS ORDERED: MAGNESIUM HYDROXIDE SUSPENSION 30 ML UDCUP PO PRN (10:15)
[2021-04-18] MEDS ORDERED: PETROLATUM,WHITE 28 GM JELLY TP PRN (10:15)
[2021-04-18] MEDS ORDERED: IBUPROFEN 400 MG TABLET PO PRN (10:15)
[2021-04-18] MEDS ORDERED: GuaiFENesin/D-METHORPHAN [SUGAR-FREE] 200-20MG/10 ML SYRUP UDCUP PO PRN (10:15)
[2021-04-18] MEDS ORDERED: ONDANSETRON HCL 4 MG TABLET PO PRN (10:15)
[2021-04-18] MEDS ORDERED: MAG HYDROX/AL HYDROX/SIMETH ES 30 ML SUSPENSION UDCUP PO PRN (10:15)
[2021-04-18] MEDS ORDERED: ALBUTEROL SULFATE HFA 90 MCG/PUFF 8 GM INHALER IH PRN (10:15)
[2021-04-18] MEDS ORDERED: LOPERAMIDE HCL 2 MG CAPSULE PO PRN (10:15)
[2021-04-18] MEDS ORDERED: DOCUSATE SODIUM 100 MG CAPSULE PO PRN (10:15)
[2021-04-18] MEDS ORDERED: ACETAMINOPHEN 325 MG TABLET PO PRN (10:15)
[2021-04-18] MEDS ORDERED: CloNIDine HCL 0.1 MG TABLET PO PRN (10:15)
[2021-04-18] MEDS: SERTRALINE HCL 50 MG TABLET PO SCH (11:34)
[2021-04-18 16:19] VITALS: BP 112/71
[2021-04-18] MEDS: OLANZapine 10 MG TABLET PO SCH (16:39)
[2021-04-18] MEDS: BENZTROPINE MESYLATE 2 MG TABLET PO SCH (16:39)
[2021-04-19 02:01] VITALS: BP 110/63
[2021-04-19] MEDS: OLANZapine 10 MG TABLET PO SCH ×2 (09:29→17:25)
[2021-04-19] MEDS: SERTRALINE HCL 50 MG TABLET PO SCH (09:29)
[2021-04-19] MEDS: LISINOPRIL 10 MG TABLET PO SCH (09:29)
[2021-04-19] MEDS: BENZTROPINE MESYLATE 2 MG TABLET PO SCH ×2 (09:32→17:25)
[2021-04-19 10:28] VITALS: BP 143/80
[2021-04-19 16:16] VITALS: BP 124/84
[2021-04-19] MEDS: HALOPERIDOL 5 MG TABLET PO PRN (17:25)
[2021-04-19] MEDS: LORazepam 2 MG TABLET PO PRN (17:25)
[2021-04-20 00:14] VITALS: BP 118/86
[2021-04-20] MEDS: LORazepam 2 MG TABLET PO PRN (08:05)
[2021-04-20] MEDS: OLANZapine 10 MG TABLET PO SCH ×2 (08:31→16:50)
[2021-04-20] MEDS: LISINOPRIL 10 MG TABLET PO SCH (08:31)
[2021-04-20] MEDS: SERTRALINE HCL 50 MG TABLET PO SCH (08:31)
[2021-04-20] MEDS: BENZTROPINE MESYLATE 2 MG TABLET PO SCH ×2 (08:31→16:50)
[2021-04-20 08:35] VITALS: BP 145/94
[2021-04-20] MEDS: HALOPERIDOL 5 MG TABLET PO PRN (11:40)
[2021-04-20 16:29] VITALS: BP 136/89
[2021-04-21 00:39] VITALS: BP 144/94
[2021-04-21] MEDS: LORazepam 2 MG TABLET PO PRN ×3 (08:05→18:50)
[2021-04-21] MEDS: LISINOPRIL 10 MG TABLET PO SCH (08:24)
[2021-04-21] MEDS: BENZTROPINE MESYLATE 2 MG TABLET PO SCH ×2 (08:24→16:32)
[2021-04-21] MEDS: SERTRALINE HCL 50 MG TABLET PO SCH (08:24)
[2021-04-21] MEDS: OLANZapine 10 MG TABLET PO SCH ×2 (08:25→16:32)
[2021-04-21 09:39] VITALS: BP 151/99
[2021-04-21 16:05] VITALS: BP 140/80
[2021-04-21] MEDS: HALOPERIDOL 5 MG TABLET PO PRN (18:50)
[2021-04-22 06:56] VITALS: BP 111/77
[2021-04-22] MEDS: SERTRALINE HCL 50 MG TABLET PO SCH (08:13)
[2021-04-22] MEDS: NICOTINE 14 MG/24 HOUR PATCH TD PRN (08:13)
[2021-04-22] MEDS: OLANZapine 10 MG TABLET PO SCH ×2 (08:13→16:00)
[2021-04-22] MEDS: BENZTROPINE MESYLATE 2 MG TABLET PO SCH ×2 (08:13→16:00)
[2021-04-22] MEDS: LISINOPRIL 10 MG TABLET PO SCH (08:13)
[2021-04-22 09:39] VITALS: BP 125/83
[2021-04-22] MEDS: HALOPERIDOL 5 MG TABLET PO PRN ×3 (10:35→21:19)
[2021-04-22] MEDS: LORazepam 2 MG TABLET PO PRN ×2 (16:00→21:19)
[2021-04-22 16:16] VITALS: BP 151/93
[2021-04-23 07:06] VITALS: BP 138/80
[2021-04-23 08:39] VITALS: BP 125/63
[2021-04-23] MEDS: LISINOPRIL 10 MG TABLET PO SCH (08:58)
[2021-04-23] MEDS: LORazepam 2 MG TABLET PO PRN ×3 (08:59→20:41)
[2021-04-23] MEDS: BENZTROPINE MESYLATE 2 MG TABLET PO SCH ×2 (08:59→16:08)
[2021-04-23] MEDS: OLANZapine 10 MG TABLET PO SCH ×2 (08:59→16:08)
[2021-04-23] MEDS: SERTRALINE HCL 50 MG TABLET PO SCH (08:59)
[2021-04-23 16:11] VITALS: BP 140/86
[2021-04-23 18:32] LABS: APPEARANCE,URINE CLEAR (CLEAR); BILIRUBIN,URINE NEGATIVE (NEGATIVE); GLUCOSE, URINE (UA) NEGATIVE (NEGATIVE); KETONES,URINE NEGATIVE (NEGATIVE); LEUKOCYTE ESTERASE ,URINE NEGATIVE (NEGATIVE); NITRATE,URINE NEGATIVE (NEGATIVE); OCCULT BLOOD,URINE NEGATIVE (NEGATIVE); PH,URINE 7.5 (5.0-8.0); PROTEIN,URINE NEGATIVE (NEGATIVE); UROBILINOGEN,URINE 0.2 mg/dL (<=1.0)
[2021-04-23] MEDS: HALOPERIDOL 5 MG TABLET PO PRN (20:41)
[2021-04-24 04:32] VITALS: BP 135/78
[2021-04-24 07:46] LABS: BASOPHILS % (AUTO) 0.6 % (0.0-2.0); EOSINOPHILS % (AUTO) 4.6 % (1.0-6.0); HEMATOCRIT 43.1 % (41-53); HEMOGLOBIN 13.9 g/dL (13.5-17.5); LYMPHOCYTES # (AUTO) 1.4 K/uL (1.0-4.8); MEAN CORPUSCULAR HEMOGLOBIN 27.6 pg (26.0-34.0); MEAN CORPUSCULAR HGB CONC 32.2 G/dL (31.0-37.0); MEAN CORPUSCULAR VOLUME 86 fL (80-100); MONOCYTES # (AUTO) 0.5 K/uL (0.1-1.0); MONOCYTES % (AUTO) 9.8 % (2.0-9.0); NEUTROPHILS # (AUTO) 2.5 K/uL (1.8-7.7); PLATELET COUNT (AUTO) 238 K/uL (150-450); RED BLOOD CELL COUNT(AUTO) 5.04 MIL/uL (4.50-5.90); RED CELL DISTRIBUTION WIDTH 17.7 % (11.5-14.5)
[2021-04-24 08:01] LABS: COVID AG,FIA SOURCE NASAL SWAB
[2021-04-24 08:05] LABS: ANION GAP 7 mmol/L (8-16); CALCIUM, TOTAL 8.4 mg/dL (8.8-10.5); CARBON DIOXIDE 28 mmol/L (22-29); CHLORIDE 103 mmol/L (98-107); CREATININE 1.11 mg/dL (0.60-1.30); GLOMERULAR FILTR. RATE CALC > 60 mL/min (>60); GLUCOSE,RANDOM 78 mg/dL (70-110); POTASSIUM 3.9 mmol/L (3.5-5.1); SODIUM SERUM 138 mmol/L (136-145); UREA NITROGEN, BLOOD 15 mg/dL (7-18)
[2021-04-24] MEDS: OLANZapine 10 MG TABLET PO SCH (08:51)
[2021-04-24] MEDS: SERTRALINE HCL 50 MG TABLET PO SCH (08:51)
[2021-04-24] MEDS: LORazepam 2 MG TABLET PO PRN (08:51)
[2021-04-24] MEDS: BENZTROPINE MESYLATE 2 MG TABLET PO SCH (08:51)
[2021-04-24] MEDS: LISINOPRIL 10 MG TABLET PO SCH (08:51)
[2021-04-24] MEDS: NICOTINE 14 MG/24 HOUR PATCH TD PRN (08:52)
== END 2021-04-24 13:45 | disposition home or self-care (01) | DRG 750 ==
LOC: EMS 12:06 → B3A 17:09
PROVIDERS: ADMIT Psychiatry & Neurology Child & Adolescent Psychiatry; ATTEND Psychiatry & Neurology Child & Adolescent Psychiatry
DX: F25.1 Schizoaffective disorder, depressive type (principal); R45.851 Suicidal ideations; R45.850 Homicidal ideations; E78.5 Hyperlipidemia, unspecified; F10.10 Alcohol abuse, uncomplicated; F15.90 Other stimulant use, unspecified, uncomplicated; F17.200 Nicotine dependence, unspecified, uncomplicated; F32.9 Major depressive disorder, single episode, unspecified; I10 Essential (primary) hypertension; Z20.822 Contact with and (suspected) exposure to COVID-19; J45.909 Unspecified asthma, uncomplicated; Z59.0 Homelessness; Z91.14 Patient's other noncompliance with medication regimen; Z88.8 Allergy status to other drugs, medicaments and biological substances; Z79.899 Other long term (current) drug therapy
CPT/HCPCS: 80048; 80053; 80061; 81003; 82140; 85025; 99285; G0480

== ENCOUNTER 2021-05-14 15:31 | Inpatient (IN) | payer MEDICAID ==
[~2021-05-14] VITALS: Ht 172.7 cm; Wt 76.7 kg
[2021-05-14 17:15] LABS: BASOPHILS % (AUTO) 0.4 % (0.0-2.0); EOSINOPHILS % (AUTO) 0.5 % (1.0-6.0); HEMATOCRIT 41.1 % (41-53); HEMOGLOBIN 13.4 g/dL (13.5-17.5); LYMPHOCYTES # (AUTO) 0.5 K/uL (1.0-4.8); LYMPHOCYTES % (AUTO) 8.9 % (22.0-44.0); MEAN CORPUSCULAR HEMOGLOBIN 27.3 pg (26.0-34.0); MEAN CORPUSCULAR HGB CONC 32.5 G/dL (31.0-37.0); MEAN CORPUSCULAR VOLUME 84 fL (80-100); MONOCYTES # (AUTO) 0.5 K/uL (0.1-1.0); MONOCYTES % (AUTO) 9.1 % (2.0-9.0); NEUTROPHILS # (AUTO) 4.7 K/uL (1.8-7.7); NEUTROPHILS % (AUTO) 81.1 % (40.0-70.0); PLATELET COUNT (AUTO) 214 K/uL (150-450); RED BLOOD CELL COUNT(AUTO) 4.89 MIL/uL (4.50-5.90); RED CELL DISTRIBUTION WIDTH 17.2 % (11.5-14.5)
[2021-05-14 17:29] LABS: SALICYLATE 2.3 mg/dL (2.8-20.0)
[2021-05-14 17:30] LABS: ANION GAP 5 mmol/L (8-16); CALCIUM, TOTAL 8.8 mg/dL (8.8-10.5); CARBON DIOXIDE 27 mmol/L (22-29); CHLORIDE 101 mmol/L (98-107); CREATININE 1.03 mg/dL (0.60-1.30); GLOMERULAR FILTR. RATE CALC > 60 mL/min (>60); GLUCOSE,RANDOM 88 mg/dL (70-110); SODIUM SERUM 133 mmol/L (136-145); UREA NITROGEN, BLOOD 11 mg/dL (7-18)
[2021-05-14 17:36] LABS: ALANINE AMINOTRANSFERASE 46 U/L (12-78); ALBUMIN 3.6 g/dL (3.4-5.0); ALKALINE PHOSPHATASE 76 U/L (46-116); ASPARTATE AMINOTRANSFERASE 52 U/L (15-37); BILIRUBIN,TOTAL 0.9 mg/dL (0.1-1.0); TOTAL PROTEIN, SERUM 7.8 g/dL (6.4-8.2)
[2021-05-14 17:39] LABS: ACETAMINOPHEN < 2 mcg/mL (10-30)
[2021-05-14 18:11] LABS: COVID AG,FIA SOURCE NASAL SWAB
[2021-05-14] MEDS ORDERED: CEPHALEXIN MONOHYDRATE 500 MG CAPSULE PO ONE (19:00)
[2021-05-14 21:54] VITALS: BP 119/79
[2021-05-14] MEDS ORDERED: PNEUMOCOCCAL VACCINE POLYVALENT 0.5 ML VIAL [PPSV23] IM. ONE (22:15)
[2021-05-15 00:01] VITALS: BP 128/86
[2021-05-15 01:26] LABS: CHOL/HDL RATIO 1.8 (4.2-7.3); CHOLESTEROL 211 mg/dL (131-200); HDL CHOLESTEROL 119 mg/dL (40-60); LDL CHOL (CALC.) 85 mg/dL (0-130); TRIGLYCERIDES 35 mg/dL (15-150)
[2021-05-15 08:09] VITALS: BP 130/80
[2021-05-15] MEDS: BACITRACIN 28 GM OINTMENT TP SCH ×2 (10:19→16:56)
[2021-05-15] MEDS: CEPHALEXIN MONOHYDRATE 500 MG CAPSULE PO SCH ×3 (10:19→16:56)
[2021-05-15] MEDS ORDERED: MAGNESIUM HYDROXIDE SUSPENSION 30 ML UDCUP PO PRN (14:15)
[2021-05-15] MEDS ORDERED: ONDANSETRON HCL 4 MG TABLET PO PRN (14:15)
[2021-05-15] MEDS ORDERED: NICOTINE 14 MG/24 HOUR PATCH TD PRN (14:15)
[2021-05-15] MEDS ORDERED: CloNIDine HCL 0.1 MG TABLET PO PRN (14:15)
[2021-05-15] MEDS ORDERED: PETROLATUM,WHITE 28 GM JELLY TP PRN (14:15)
[2021-05-15] MEDS ORDERED: ACETAMINOPHEN 325 MG TABLET PO PRN (14:15)
[2021-05-15] MEDS ORDERED: ALBUTEROL SULFATE HFA 90 MCG/PUFF 8 GM INHALER IH PRN (14:15)
[2021-05-15] MEDS ORDERED: IBUPROFEN 400 MG TABLET PO PRN (14:15)
[2021-05-15] MEDS ORDERED: DOCUSATE SODIUM 100 MG CAPSULE PO PRN (14:15)
[2021-05-15] MEDS ORDERED: LOPERAMIDE HCL 2 MG CAPSULE PO PRN (14:15)
[2021-05-15] MEDS ORDERED: GuaiFENesin/D-METHORPHAN [SUGAR-FREE] 200-20MG/10 ML SYRUP UDCUP PO PRN (14:15)
[2021-05-15 16:04] VITALS: BP 115/74
[2021-05-16 00:52] VITALS: BP 127/79
[2021-05-16 07:31] LABS: THYROID STIMULATING HORMONE 2.06 uIU/mL (0.36-3.74)
[2021-05-16 08:07] VITALS: BP 131/77
[2021-05-16] MEDS: CEPHALEXIN MONOHYDRATE 500 MG CAPSULE PO SCH ×3 (09:03→16:46)
[2021-05-16] MEDS: LISINOPRIL 10 MG TABLET PO SCH (09:04)
[2021-05-16] MEDS: BACITRACIN 28 GM OINTMENT TP SCH ×2 (09:04→16:46)
[2021-05-16] MEDS: LORazepam 2 MG TABLET PO PRN (10:30)
[2021-05-16 16:14] VITALS: BP 128/78
[2021-05-16] MEDS: OLANZapine 10 MG TABLET PO SCH (16:46)
[2021-05-16] MEDS: BENZTROPINE MESYLATE 1 MG TABLET PO SCH (20:05)
[2021-05-17 01:20] VITALS: BP 119/78
[2021-05-17 08:15] VITALS: BP 122/69
[2021-05-17] MEDS: BENZTROPINE MESYLATE 1 MG TABLET PO SCH ×2 (09:01→20:06)
[2021-05-17] MEDS: LISINOPRIL 10 MG TABLET PO SCH (09:01)
[2021-05-17] MEDS: BACITRACIN 28 GM OINTMENT TP SCH ×2 (09:01→17:00)
[2021-05-17] MEDS: OLANZapine 10 MG TABLET PO SCH ×2 (09:01→16:40)
[2021-05-17] MEDS: SERTRALINE HCL 50 MG TABLET PO SCH (09:01)
[2021-05-17] MEDS: CEPHALEXIN MONOHYDRATE 500 MG CAPSULE PO SCH ×3 (09:01→16:40)
[2021-05-17 16:09] VITALS: BP 121/84
[2021-05-17] MEDS: ZOLPIDEM TARTRATE 10 MG TABLET PO PRN (22:41)
[2021-05-18 01:35] VITALS: BP 116/11
[2021-05-18 08:09] VITALS: BP 132/80
[2021-05-18] MEDS: OLANZapine 10 MG TABLET PO SCH ×2 (09:29→16:40)
[2021-05-18] MEDS: BENZTROPINE MESYLATE 1 MG TABLET PO SCH ×2 (09:29→20:29)
[2021-05-18] MEDS: CEPHALEXIN MONOHYDRATE 500 MG CAPSULE PO SCH ×3 (09:30→16:40)
[2021-05-18] MEDS: SERTRALINE HCL 50 MG TABLET PO SCH (09:30)
[2021-05-18] MEDS: LISINOPRIL 10 MG TABLET PO SCH (09:30)
[2021-05-18] MEDS: BACITRACIN 28 GM OINTMENT TP SCH ×2 (09:31→16:40)
[2021-05-18 16:06] VITALS: BP 120/83
[2021-05-18] MEDS: MAG HYDROX/AL HYDROX/SIMETH ES 30 ML SUSPENSION UDCUP PO PRN (20:39)
[2021-05-18] MEDS: ZOLPIDEM TARTRATE 10 MG TABLET PO PRN (21:43)
[2021-05-19 01:13] VITALS: BP 159/84
[2021-05-19 07:03] LABS: COVID AG,FIA SOURCE NASOPHARYNGEAL
[2021-05-19 08:14] VITALS: BP 114/70
[2021-05-19] MEDS: CEPHALEXIN MONOHYDRATE 500 MG CAPSULE PO SCH ×3 (08:59→16:28)
[2021-05-19] MEDS: OLANZapine 10 MG TABLET PO SCH ×2 (08:59→16:28)
[2021-05-19] MEDS: SERTRALINE HCL 50 MG TABLET PO SCH (09:00)
[2021-05-19] MEDS: LISINOPRIL 10 MG TABLET PO SCH (09:00)
[2021-05-19] MEDS: BENZTROPINE MESYLATE 1 MG TABLET PO SCH ×2 (09:00→20:29)
[2021-05-19] MEDS: BACITRACIN 28 GM OINTMENT TP SCH ×2 (09:01→16:29)
[2021-05-19 16:12] VITALS: BP 118/71
[2021-05-19] MEDS: LORazepam 2 MG TABLET PO PRN ×2 (19:12→20:02)
[2021-05-20 01:00] VITALS: BP 127/77
[2021-05-20 08:04] VITALS: BP 140/93
[2021-05-20] MEDS: SERTRALINE HCL 50 MG TABLET PO SCH (08:32)
[2021-05-20] MEDS: CEPHALEXIN MONOHYDRATE 500 MG CAPSULE PO SCH ×3 (08:33→16:29)
[2021-05-20] MEDS: BENZTROPINE MESYLATE 1 MG TABLET PO SCH ×2 (08:33→20:38)
[2021-05-20] MEDS: OLANZapine 10 MG TABLET PO SCH ×2 (08:33→16:30)
[2021-05-20] MEDS: LISINOPRIL 10 MG TABLET PO SCH (08:33)
[2021-05-20] MEDS: BACITRACIN 28 GM OINTMENT TP SCH ×2 (08:34→16:30)
[2021-05-20] MEDS: LORazepam 2 MG TABLET PO PRN ×2 (15:43→20:10)
[2021-05-20 16:10] VITALS: BP 120/73
[2021-05-20] MEDS: HALOPERIDOL 5 MG TABLET PO PRN (18:48)
[2021-05-20] MEDS: ZOLPIDEM TARTRATE 10 MG TABLET PO PRN (20:37)
[2021-05-20] MEDS ORDERED: LORazepam 2 MG/ML VIAL ONE (21:08)
[2021-05-20] MEDS ORDERED: DiphenhydrAMINE HCL 50 MG/ML VIAL ONE (21:08)
[2021-05-20] MEDS ORDERED: HALOPERIDOL LACTATE 5 MG/ML VIAL ONE (21:08)
[2021-05-20] MEDS ORDERED: HALOPERIDOL LACTATE 5 MG/ML VIAL IM ONE (21:15)
[2021-05-20] MEDS ORDERED: LORazepam 2 MG/ML VIAL IM ONE (21:15)
[2021-05-20] MEDS ORDERED: DiphenhydrAMINE HCL 50 MG/ML VIAL IM ONE (21:15)
[2021-05-21 00:30] VITALS: BP 131/82
[2021-05-21] MEDS: HALOPERIDOL 5 MG TABLET PO PRN (06:54)
[2021-05-21] MEDS: LORazepam 2 MG TABLET PO PRN (06:54)
[2021-05-21 08:05] VITALS: BP 130/80
[2021-05-21] MEDS: CEPHALEXIN MONOHYDRATE 500 MG CAPSULE PO SCH ×3 (08:44→17:00)
[2021-05-21] MEDS: LISINOPRIL 10 MG TABLET PO SCH (08:44)
[2021-05-21] MEDS: OLANZapine 10 MG TABLET PO SCH ×2 (08:44→17:05)
[2021-05-21] MEDS: SERTRALINE HCL 50 MG TABLET PO SCH (08:44)
[2021-05-21] MEDS: BENZTROPINE MESYLATE 1 MG TABLET PO SCH ×2 (08:44→22:27)
[2021-05-21] MEDS: BACITRACIN 28 GM OINTMENT TP SCH ×2 (08:45→17:05)
[2021-05-21] MEDS ORDERED: ChlorproMAZINE HCL 50 MG/2 ML AMP ONE (11:07)
[2021-05-21] MEDS ORDERED: LORazepam 2 MG/ML VIAL ONE (11:07)
[2021-05-21] MEDS ORDERED: DiphenhydrAMINE HCL 50 MG/ML VIAL ONE ×2 (11:08→11:09)
[2021-05-21] MEDS ORDERED: DiphenhydrAMINE HCL 50 MG/ML VIAL IM ONE (11:15)
[2021-05-21] MEDS ORDERED: ChlorproMAZINE HCL 50 MG/2 ML AMP IM ONE (11:15)
[2021-05-21] MEDS ORDERED: LORazepam 2 MG/ML VIAL IM ONE (11:15)
[2021-05-21 13:37] VITALS: BP 127/79
[2021-05-21 14:00] VITALS: BP_SYST 132; BP_SYST 32; BP_DIAS 83
[2021-05-21 14:15] VITALS: BP 130/80
[2021-05-21 16:38] VITALS: BP 137/77
[2021-05-22] MEDS: ZOLPIDEM TARTRATE 10 MG TABLET PO PRN (00:10)
[2021-05-22 00:12] VITALS: BP 139/90
[2021-05-22 08:15] LABS: BASOPHILS % (AUTO) 0.5 % (0.0-2.0); EOSINOPHILS % (AUTO) 2.4 % (1.0-6.0); HEMATOCRIT 41.4 % (41-53); HEMOGLOBIN 13.4 g/dL (13.5-17.5); LYMPHOCYTES # (AUTO) 1.4 K/uL (1.0-4.8); MEAN CORPUSCULAR HEMOGLOBIN 27.8 pg (26.0-34.0); MEAN CORPUSCULAR HGB CONC 32.5 G/dL (31.0-37.0); MEAN CORPUSCULAR VOLUME 86 fL (80-100); MONOCYTES # (AUTO) 0.7 K/uL (0.1-1.0); MONOCYTES % (AUTO) 16.4 % (2.0-9.0); NEUTROPHILS # (AUTO) 2.2 K/uL (1.8-7.7); NEUTROPHILS % (AUTO) 49.7 % (40.0-70.0); PLATELET COUNT (AUTO) 259 K/uL (150-450); RED BLOOD CELL COUNT(AUTO) 4.84 MIL/uL (4.50-5.90); RED CELL DISTRIBUTION WIDTH 16.8 % (11.5-14.5)
[2021-05-22 08:37] LABS: ALANINE AMINOTRANSFERASE 265 U/L (12-78); ALBUMIN 3.7 g/dL (3.4-5.0); ALKALINE PHOSPHATASE 69 U/L (46-116); ANION GAP 7 mmol/L (8-16); ASPARTATE AMINOTRANSFERASE 149 U/L (15-37); BILIRUBIN,TOTAL 0.7 mg/dL (0.1-1.0); CALCIUM, TOTAL 9.1 mg/dL (8.8-10.5); CARBON DIOXIDE 28 mmol/L (22-29); CHLORIDE 105 mmol/L (98-107); CREATININE 0.98 mg/dL (0.60-1.30); GLOMERULAR FILTR. RATE CALC > 60 mL/min (>60); GLUCOSE,RANDOM 66 mg/dL (70-110); POTASSIUM 4.2 mmol/L (3.5-5.1); SODIUM SERUM 140 mmol/L (136-145); TOTAL PROTEIN, SERUM 7.7 g/dL (6.4-8.2); UREA NITROGEN, BLOOD 12 mg/dL (7-18)
[2021-05-22 08:43] VITALS: BP 121/78
[2021-05-22 09:03] VITALS: BP 136/90
[2021-05-22] MEDS: SERTRALINE HCL 50 MG TABLET PO SCH (09:37)
[2021-05-22] MEDS: OLANZapine 10 MG TABLET PO SCH ×2 (09:37→17:10)
[2021-05-22] MEDS: MULTIVITAMINS WITH MINERALS, THERAPEUTIC TABLET PO SCH (09:37)
[2021-05-22] MEDS: BENZTROPINE MESYLATE 1 MG TABLET PO SCH ×2 (09:38→20:25)
[2021-05-22] MEDS: CEPHALEXIN MONOHYDRATE 500 MG CAPSULE PO SCH (09:38)
[2021-05-22] MEDS: LISINOPRIL 10 MG TABLET PO SCH (09:39)
[2021-05-22] MEDS: BACITRACIN 28 GM OINTMENT TP SCH ×2 (09:40→17:10)
[2021-05-22] MEDS: MAG HYDROX/AL HYDROX/SIMETH ES 30 ML SUSPENSION UDCUP PO PRN (10:30)
[2021-05-22] MEDS: LACTULOSE 20 GM/30 ML SOLUTION UDCUP PO SCH (12:42)
[2021-05-22 16:33] VITALS: BP 137/89
[2021-05-23 00:59] VITALS: BP 106/61
[2021-05-23 08:07] LABS: AMPHET/METH SCREEN,URINE NEGATIVE (NEGATIVE); BARBITURATE SCREEN, URINE NEGATIVE (NEGATIVE); BENZODIAZEPINES SCREEN,URINE NEGATIVE (NEGATIVE); CANNABINOID SCREEN,URINE POSITIVE (NEGATIVE); COCAINE SCREEN,URINE NEGATIVE (NEGATIVE); METHADONE SCREEN, URINE NEGATIVE (NEGATIVE); OPIATE SCREEN,URINE NEGATIVE (NEGATIVE)
[2021-05-23] MEDS: OLANZapine 10 MG TABLET PO SCH ×2 (08:09→16:32)
[2021-05-23] MEDS: MULTIVITAMINS WITH MINERALS, THERAPEUTIC TABLET PO SCH (08:09)
[2021-05-23] MEDS: SERTRALINE HCL 50 MG TABLET PO SCH (08:09)
[2021-05-23] MEDS: LISINOPRIL 10 MG TABLET PO SCH (08:10)
[2021-05-23] MEDS: BENZTROPINE MESYLATE 1 MG TABLET PO SCH ×2 (08:10→20:02)
[2021-05-23] MEDS: LACTULOSE 20 GM/30 ML SOLUTION UDCUP PO SCH (08:10)
[2021-05-23] MEDS: LORazepam 2 MG TABLET PO PRN ×3 (08:11→21:33)
[2021-05-23 08:13] LABS: APPEARANCE,URINE CLEAR (CLEAR); BILIRUBIN,URINE NEGATIVE (NEGATIVE); GLUCOSE, URINE (UA) NEGATIVE (NEGATIVE); KETONES,URINE NEGATIVE (NEGATIVE); LEUKOCYTE ESTERASE ,URINE NEGATIVE (NEGATIVE); NITRATE,URINE NEGATIVE (NEGATIVE); OCCULT BLOOD,URINE NEGATIVE (NEGATIVE); PH,URINE 7.5 (5.0-8.0); PROTEIN,URINE NEGATIVE (NEGATIVE); UROBILINOGEN,URINE 0.2 mg/dL (<=1.0)
[2021-05-23 08:16] LABS: PHENCYCLIDINE SCREEN,URINE NEGATIVE (NEGATIVE)
[2021-05-23 08:42] VITALS: BP 131/85
[2021-05-23] MEDS: MAG HYDROX/AL HYDROX/SIMETH ES 30 ML SUSPENSION UDCUP PO PRN ×2 (09:45→21:06)
[2021-05-23] MEDS: BACITRACIN 28 GM OINTMENT TP SCH ×2 (09:45→16:35)
[2021-05-23 16:25] VITALS: BP 119/76
[2021-05-23] MEDS: ZOLPIDEM TARTRATE 10 MG TABLET PO PRN (20:35)
[2021-05-23] MEDS: HALOPERIDOL 5 MG TABLET PO PRN (21:33)
[2021-05-24 00:55] VITALS: BP 119/79
[2021-05-24] MEDS: BENZTROPINE MESYLATE 1 MG TABLET PO SCH ×2 (08:03→20:06)
[2021-05-24] MEDS: OLANZapine 10 MG TABLET PO SCH ×2 (08:03→16:13)
[2021-05-24] MEDS: LACTULOSE 20 GM/30 ML SOLUTION UDCUP PO SCH (08:03)
[2021-05-24] MEDS: LISINOPRIL 10 MG TABLET PO SCH (08:03)
[2021-05-24] MEDS: LORazepam 2 MG TABLET PO PRN ×2 (08:03→13:21)
[2021-05-24] MEDS: SERTRALINE HCL 50 MG TABLET PO SCH (08:03)
[2021-05-24] MEDS: MULTIVITAMINS WITH MINERALS, THERAPEUTIC TABLET PO SCH (08:03)
[2021-05-24] MEDS: BACITRACIN 28 GM OINTMENT TP SCH ×2 (08:04→16:12)
[2021-05-24 08:12] VITALS: BP 136/96
[2021-05-24] MEDS: HALOPERIDOL 5 MG TABLET PO PRN (13:21)
[2021-05-24 16:17] VITALS: BP 133/88
[2021-05-25 01:19] VITALS: BP 129/77
[2021-05-25] MEDS: OLANZapine 10 MG TABLET PO SCH (08:01)
[2021-05-25] MEDS: LACTULOSE 20 GM/30 ML SOLUTION UDCUP PO SCH (08:01)
[2021-05-25] MEDS: MULTIVITAMINS WITH MINERALS, THERAPEUTIC TABLET PO SCH (08:01)
[2021-05-25] MEDS: SERTRALINE HCL 50 MG TABLET PO SCH (08:01)
[2021-05-25] MEDS: BENZTROPINE MESYLATE 1 MG TABLET PO SCH (08:01)
[2021-05-25] MEDS: LISINOPRIL 10 MG TABLET PO SCH (08:02)
[2021-05-25] MEDS: BACITRACIN 28 GM OINTMENT TP SCH (08:02)
[2021-05-25] MEDS: LORazepam 2 MG TABLET PO PRN (08:02)
[2021-05-25 08:22] VITALS: BP 100/81
[2021-05-25] MEDS ORDERED: LISI-893 PO (10:30)
[2021-05-25] MEDS ORDERED: SERT-158 PO (10:30)
[2021-05-25] MEDS ORDERED: OLAN10TA74 PO (10:30)
[2021-05-25] MEDS ORDERED: BENZ2TAB10 PO (10:30)
[2021-05-25] MEDS ORDERED: LACT30L PO (11:07)
== END 2021-05-25 14:57 | disposition home or self-care (01) | DRG 750 ==
LOC: EMS 15:34 → B2S 20:20
PROVIDERS: ADMIT Psychiatry & Neurology Child & Adolescent Psychiatry; ATTEND Psychiatry & Neurology Child & Adolescent Psychiatry
DX: F25.1 Schizoaffective disorder, depressive type (principal); G93.40 Encephalopathy, unspecified; R45.850 Homicidal ideations; Z59.00 Homelessness unspecified; R45.851 Suicidal ideations; E78.5 Hyperlipidemia, unspecified; I10 Essential (primary) hypertension; R58 Hemorrhage, not elsewhere classified; J45.909 Unspecified asthma, uncomplicated; Z20.822 Contact with and (suspected) exposure to COVID-19; L03.90 Cellulitis, unspecified; F12.10 Cannabis abuse, uncomplicated; F17.210 Nicotine dependence, cigarettes, uncomplicated; T43.596A Underdosing of other antipsychotics and neuroleptics, initial encounter; Y92.89 Other specified places as the place of occurrence of the external cause; Z88.8 Allergy status to other drugs, medicaments and biological substances; Z79.899 Other long term (current) drug therapy
CPT/HCPCS: 80048; 80053; 80061; 80076; 80307; 81003; 82140; 84439; 84443; 85025; 87081; 99285; G0480; G0481; J1200; J1630; J2060; J3230

== ENCOUNTER 2021-06-28 20:56 | Emergency (ER) | payer MEDICAID ==
[~2021-06-28] VITALS: Ht 172.7 cm; Wt 81.8 kg
[~2021-06-28 20:56] MED LIST changes: +LACT30L PO
[2021-06-28 21:05] VITALS: BP 151/108
[2021-06-28 22:06] LABS: BASOPHILS % (AUTO) 0.6 % (0.0-2.0); EOSINOPHILS % (AUTO) 1.3 % (1.0-6.0); HEMATOCRIT 43.9 % (41-53); HEMOGLOBIN 14.4 g/dL (13.5-17.5); LYMPHOCYTES # (AUTO) 1.5 K/uL (1.0-4.8); LYMPHOCYTES % (AUTO) 22.7 % (22.0-44.0); MEAN CORPUSCULAR HEMOGLOBIN 27.6 pg (26.0-34.0); MEAN CORPUSCULAR HGB CONC 32.8 G/dL (31.0-37.0); MEAN CORPUSCULAR VOLUME 84 fL (80-100); MONOCYTES # (AUTO) 0.7 K/uL (0.1-1.0); MONOCYTES % (AUTO) 10.3 % (2.0-9.0); NEUTROPHILS # (AUTO) 4.2 K/uL (1.8-7.7); NEUTROPHILS % (AUTO) 65.1 % (40.0-70.0); PLATELET COUNT (AUTO) 275 K/uL (150-450); RED BLOOD CELL COUNT(AUTO) 5.22 MIL/uL (4.50-5.90)
[2021-06-28 22:17] LABS: ANION GAP 8 mmol/L (8-16); CALCIUM, TOTAL 9.3 mg/dL (8.8-10.5); CARBON DIOXIDE 30 mmol/L (22-29); CHLORIDE 102 mmol/L (98-107); CREATININE 1.18 mg/dL (0.60-1.30); GLOMERULAR FILTR. RATE CALC > 60 mL/min (>60); GLUCOSE,RANDOM 116 mg/dL (70-110); POTASSIUM 4.6 mmol/L (3.5-5.1); SODIUM SERUM 140 mmol/L (136-145); UREA NITROGEN, BLOOD 23 mg/dL (7-18)
[2021-06-28 22:22] LABS: ALANINE AMINOTRANSFERASE 69 U/L (12-78); ALBUMIN 4.2 g/dL (3.4-5.0); ALKALINE PHOSPHATASE 74 U/L (46-116); ASPARTATE AMINOTRANSFERASE 140 U/L (15-37); BILIRUBIN,TOTAL 0.9 mg/dL (0.1-1.0); TOTAL PROTEIN, SERUM 8.1 g/dL (6.4-8.2)
[2021-06-29 02:11] LABS: AMPHET/METH SCREEN,URINE NEGATIVE (NEGATIVE); BARBITURATE SCREEN, URINE NEGATIVE (NEGATIVE); BENZODIAZEPINES SCREEN,URINE NEGATIVE (NEGATIVE); CANNABINOID SCREEN,URINE POSITIVE (NEGATIVE); COCAINE SCREEN,URINE NEGATIVE (NEGATIVE); METHADONE SCREEN, URINE NEGATIVE (NEGATIVE); OPIATE SCREEN,URINE NEGATIVE (NEGATIVE)
[2021-06-29 02:23] LABS: PHENCYCLIDINE SCREEN,URINE NEGATIVE (NEGATIVE)
[2021-06-29 02:56] LABS: COVID AG,FIA SOURCE NASOPHARYNGEAL
[2021-06-29] MEDS ORDERED: OLANZapine 5 MG TABLET PO ONE (03:45)
== END 2021-06-29 04:20 | disposition home or self-care (01) ==
LOC: EMS 20:56
DX: F25.9 Schizoaffective disorder, unspecified (principal); F32.9 Major depressive disorder, single episode, unspecified; F17.210 Nicotine dependence, cigarettes, uncomplicated; F12.90 Cannabis use, unspecified, uncomplicated; F19.90 Other psychoactive substance use, unspecified, uncomplicated; Z20.822 Contact with and (suspected) exposure to COVID-19; Z88.8 Allergy status to other drugs, medicaments and biological substances; Z79.899 Other long term (current) drug therapy
CPT/HCPCS: 36415; 80053; 80307; 85025; 87426; 99284; G0480

== ENCOUNTER 2021-07-09 07:52 | Inpatient (IN) | payer MEDICAID ==
[~2021-07-09] VITALS: Ht 172.7 cm; Wt 88.0 kg
[2021-07-09 08:44] LABS: BASOPHILS % (AUTO) 0.5 % (0.0-2.0); EOSINOPHILS % (AUTO) 2.6 % (1.0-6.0); HEMATOCRIT 40.8 % (41-53); HEMOGLOBIN 13.3 g/dL (13.5-17.5); LYMPHOCYTES # (AUTO) 1.6 K/uL (1.0-4.8); LYMPHOCYTES % (AUTO) 35.5 % (22.0-44.0); MEAN CORPUSCULAR HEMOGLOBIN 27.6 pg (26.0-34.0); MEAN CORPUSCULAR HGB CONC 32.7 G/dL (31.0-37.0); MEAN CORPUSCULAR VOLUME 85 fL (80-100); MONOCYTES # (AUTO) 0.6 K/uL (0.1-1.0); NEUTROPHILS # (AUTO) 2.3 K/uL (1.8-7.7); NEUTROPHILS % (AUTO) 49.4 % (40.0-70.0); PLATELET COUNT (AUTO) 229 K/uL (150-450); RED BLOOD CELL COUNT(AUTO) 4.83 MIL/uL (4.50-5.90); RED CELL DISTRIBUTION WIDTH 15.6 % (11.5-14.5)
[2021-07-09 09:01] LABS: ANION GAP 7 mmol/L (8-16); CALCIUM, TOTAL 8.6 mg/dL (8.8-10.5); CARBON DIOXIDE 31 mmol/L (22-29); CHLORIDE 105 mmol/L (98-107); CREATININE 0.94 mg/dL (0.60-1.30); GLOMERULAR FILTR. RATE CALC > 60 mL/min (>60); GLUCOSE,RANDOM 93 mg/dL (70-110); POTASSIUM 4.2 mmol/L (3.5-5.1); SODIUM SERUM 143 mmol/L (136-145); UREA NITROGEN, BLOOD 10 mg/dL (7-18)
[2021-07-09 09:06] LABS: ALANINE AMINOTRANSFERASE 79 U/L (12-78); ALBUMIN 3.7 g/dL (3.4-5.0); ALKALINE PHOSPHATASE 66 U/L (46-116); ASPARTATE AMINOTRANSFERASE 80 U/L (15-37); BILIRUBIN,TOTAL 0.4 mg/dL (0.1-1.0); TOTAL PROTEIN, SERUM 7.5 g/dL (6.4-8.2)
[2021-07-09 09:28] LABS: AMPHET/METH SCREEN,URINE NEGATIVE (NEGATIVE); BARBITURATE SCREEN, URINE NEGATIVE (NEGATIVE); BENZODIAZEPINES SCREEN,URINE NEGATIVE (NEGATIVE); CANNABINOID SCREEN,URINE POSITIVE (NEGATIVE); COCAINE SCREEN,URINE NEGATIVE (NEGATIVE); METHADONE SCREEN, URINE NEGATIVE (NEGATIVE); OPIATE SCREEN,URINE NEGATIVE (NEGATIVE)
[2021-07-09 09:31] LABS: PHENCYCLIDINE SCREEN,URINE NEGATIVE (NEGATIVE)
[2021-07-09 12:12] LABS: APPEARANCE,URINE CLEAR (CLEAR); GLUCOSE, URINE (UA) NEGATIVE (NEGATIVE); KETONES,URINE TRACE mg/dL (NEGATIVE); LEUKOCYTE ESTERASE ,URINE NEGATIVE (NEGATIVE); NITRATE,URINE NEGATIVE (NEGATIVE); OCCULT BLOOD,URINE NEGATIVE (NEGATIVE); PROTEIN,URINE TRACE (NEGATIVE)
[2021-07-09 12:17] LABS: COVID AG,FIA SOURCE NASOPHARYNGEAL
[2021-07-09 12:19] LABS: BILIRUBIN,URINE PRELIM. POSITIVE (NEGATIVE)
[2021-07-09] MEDS ORDERED: OLANZapine 5 MG TABLET PO ONE (12:30)
[2021-07-09 18:30] VITALS: BP 144/83
[2021-07-10 07:08] LABS: CHOL/HDL RATIO 2.5 (4.2-7.3); FREE T4 (FREE THYROXINE) 0.83 ng/dL (0.76-1.46); THYROID STIMULATING HORMONE 0.81 uIU/mL (0.36-3.74)
[2021-07-10 10:00] VITALS: BP 138/75
[2021-07-10] MEDS: OLANZapine 5 MG RAPDIS TABLET PO PRN (16:23)
[2021-07-10 17:45] VITALS: BP 152/98
[2021-07-10] MEDS ORDERED: ONDANSETRON HCL 4 MG TABLET PO PRN (21:00)
[2021-07-10] MEDS ORDERED: MAG HYDROX/AL HYDROX/SIMETH ES 30 ML SUSPENSION UDCUP PO PRN (21:00)
[2021-07-10] MEDS ORDERED: OMEPRAZOLE 20 MG CAPSULE PO PRN (21:00)
[2021-07-10] MEDS ORDERED: IBUPROFEN 600 MG TABLET PO PRN (21:00)
[2021-07-10] MEDS ORDERED: ALBUTEROL SULFATE HFA 90 MCG/PUFF 8 GM INHALER IH PRN (21:00)
[2021-07-10] MEDS ORDERED: BENZOCAINE/MENTHOL LOZENGE PO PRN (21:00)
[2021-07-10] MEDS ORDERED: CloNIDine HCL 0.1 MG TABLET PO PRN (21:00)
[2021-07-10] MEDS ORDERED: PETROLATUM,WHITE 28 GM JELLY TP PRN (21:00)
[2021-07-10] MEDS ORDERED: MAGNESIUM HYDROXIDE SUSPENSION 30 ML UDCUP PO PRN (21:00)
[2021-07-10] MEDS ORDERED: DOCUSATE SODIUM 100 MG CAPSULE PO PRN (21:00)
[2021-07-10] MEDS ORDERED: LOPERAMIDE HCL 2 MG CAPSULE PO PRN (21:00)
[2021-07-10] MEDS ORDERED: BACITRACIN 28 GM OINTMENT TP PRN (21:00)
[2021-07-10] MEDS: OLANZapine 10 MG TABLET PO SCH (21:17)
[2021-07-11 08:30] VITALS: BP 105/63
[2021-07-11] MEDS: LISINOPRIL 10 MG TABLET PO SCH ×2 (09:00→09:25)
[2021-07-11 16:34] VITALS: BP 134/65
[2021-07-11] MEDS: OLANZapine 10 MG TABLET PO SCH (20:47)
[2021-07-12 08:00] VITALS: BP 130/87
[2021-07-12] MEDS: LISINOPRIL 10 MG TABLET PO SCH (08:56)
[2021-07-12 16:13] VITALS: BP 140/83
[2021-07-12] MEDS: LORazepam 2 MG TABLET PO PRN (18:51)
[2021-07-12] MEDS: OLANZapine 10 MG TABLET PO SCH (21:07)
[2021-07-13 08:31] VITALS: BP 110/80
[2021-07-13] MEDS: LISINOPRIL 10 MG TABLET PO SCH (10:02)
[2021-07-13 16:28] VITALS: BP 138/88
[2021-07-13] MEDS: LORazepam 2 MG TABLET PO PRN (16:48)
[2021-07-13] MEDS: OLANZapine 10 MG TABLET PO SCH (21:38)
[2021-07-14] MEDS: LISINOPRIL 10 MG TABLET PO SCH (08:13)
[2021-07-14 08:58] VITALS: BP 154/89
[2021-07-14] MEDS: LORazepam 2 MG TABLET PO PRN ×2 (15:10→20:10)
[2021-07-14 16:47] VITALS: BP 177/109
[2021-07-14] MEDS: OLANZapine 10 MG TABLET PO SCH (20:10)
[2021-07-14] MEDS: ZOLPIDEM TARTRATE 10 MG TABLET PO PRN (23:04)
[2021-07-15 08:15] VITALS: BP 114/70
[2021-07-15] MEDS: LISINOPRIL 10 MG TABLET PO SCH (08:44)
[2021-07-15 14:38] LABS: COVID AG,FIA SOURCE NASAL SWAB
[2021-07-15 16:00] VITALS: BP 130/72
[2021-07-15 16:49] VITALS: BP 130/72
[2021-07-15] MEDS: LORazepam 2 MG TABLET PO PRN (18:04)
[2021-07-15] MEDS: OLANZapine 10 MG TABLET PO SCH (20:01)
[2021-07-15] MEDS: ZOLPIDEM TARTRATE 10 MG TABLET PO PRN (22:41)
[2021-07-16 00:30] VITALS: BP 144/97
[2021-07-16] MEDS: LORazepam 2 MG TABLET PO PRN ×2 (00:39→16:06)
[2021-07-16] MEDS: LISINOPRIL 10 MG TABLET PO SCH (08:19)
[2021-07-16 13:18] VITALS: BP 146/106
[2021-07-16 16:00] VITALS: BP 126/72
[2021-07-16] MEDS: OLANZapine 10 MG TABLET PO SCH (20:20)
[2021-07-16] MEDS: ZOLPIDEM TARTRATE 10 MG TABLET PO PRN (20:49)
[2021-07-17 08:00] VITALS: BP 144/89
[2021-07-17] MEDS: LISINOPRIL 10 MG TABLET PO SCH (09:10)
[2021-07-17 16:02] VITALS: BP 119/75
[2021-07-17] MEDS: LORazepam 2 MG TABLET PO PRN ×2 (16:02→20:31)
[2021-07-17 16:34] VITALS: BP 119/75
[2021-07-17] MEDS: OLANZapine 10 MG TABLET PO SCH (20:30)
[2021-07-17 20:31] VITALS: BP 122/72
[2021-07-17] MEDS: ZOLPIDEM TARTRATE 10 MG TABLET PO PRN (22:11)
[2021-07-18 04:58] VITALS: BP 132/82
[2021-07-18] MEDS: LORazepam 2 MG TABLET PO PRN (04:59)
[2021-07-18] MEDS: LISINOPRIL 10 MG TABLET PO SCH (08:59)
[2021-07-18 09:42] VITALS: BP 122/73
[2021-07-18 16:00] VITALS: BP 141/92
[2021-07-18] MEDS: OLANZapine 10 MG TABLET PO SCH (20:04)
[2021-07-18] MEDS: ZOLPIDEM TARTRATE 10 MG TABLET PO PRN (20:24)
[2021-07-19 00:20] VITALS: BP 150/84
[2021-07-19] MEDS: OLANZapine 5 MG RAPDIS TABLET PO PRN (00:22)
[2021-07-19] MEDS: LISINOPRIL 10 MG TABLET PO SCH (08:25)
[2021-07-19 09:53] VITALS: BP 124/78
[2021-07-19 13:15] VITALS: BP 134/80
[2021-07-19 14:25] VITALS: BP 126/76
[2021-07-19 16:27] VITALS: BP 126/82
[2021-07-19] MEDS: OLANZapine 10 MG TABLET PO SCH (20:05)
[2021-07-19] MEDS: ZOLPIDEM TARTRATE 10 MG TABLET PO PRN (21:48)
[2021-07-20] MEDS: LISINOPRIL 10 MG TABLET PO SCH (08:18)
[2021-07-20 10:30] VITALS: BP 153/95
[2021-07-20 16:25] VITALS: BP 115/81
[2021-07-20] MEDS: ACETAMINOPHEN 325 MG TABLET PO PRN (18:50)
[2021-07-20] MEDS: OLANZapine 10 MG TABLET PO SCH (20:07)
[2021-07-20] MEDS: ZOLPIDEM TARTRATE 10 MG TABLET PO PRN (22:05)
[2021-07-21 08:00] VITALS: BP 115/71
[2021-07-21] MEDS: LISINOPRIL 10 MG TABLET PO SCH (08:34)
[2021-07-21 11:06] LABS: COVID AG,FIA SOURCE NASAL SWAB
[2021-07-21 16:20] VITALS: BP 132/82
[2021-07-21 16:28] VITALS: BP 124/75
[2021-07-21] MEDS: ACETAMINOPHEN 325 MG TABLET PO PRN (16:28)
[2021-07-21 17:28] VITALS: BP 133/76
[2021-07-21] MEDS: OLANZapine 10 MG TABLET PO SCH (20:11)
[2021-07-21] MEDS: ZOLPIDEM TARTRATE 10 MG TABLET PO PRN (22:36)
[2021-07-22 08:00] VITALS: BP 118/77
[2021-07-22] MEDS: LISINOPRIL 10 MG TABLET PO SCH (09:28)
[2021-07-22] MEDS: ACETAMINOPHEN 325 MG TABLET PO PRN (14:54)
[2021-07-22 16:00] VITALS: BP 120/84
[2021-07-22] MEDS: OLANZapine 5 MG RAPDIS TABLET PO PRN (16:30)
[2021-07-22] MEDS: OLANZapine 10 MG TABLET PO SCH (20:32)
[2021-07-22] MEDS: ZOLPIDEM TARTRATE 10 MG TABLET PO PRN (21:15)
[2021-07-23] MEDS: LISINOPRIL 10 MG TABLET PO SCH (08:16)
[2021-07-23] MEDS ORDERED: OLAN10TA74 PO (10:04)
== END 2021-07-23 11:35 | disposition home or self-care (01) | DRG 750 ==
LOC: EMS 07:54 → 3EI 17:57
PROVIDERS: ADMIT Psychiatry & Neurology Psychiatry; ATTEND Psychiatry & Neurology Psychiatry
DX: F20.0 Paranoid schizophrenia (principal); R45.851 Suicidal ideations; Z59.00 Homelessness unspecified; F12.90 Cannabis use, unspecified, uncomplicated; F17.210 Nicotine dependence, cigarettes, uncomplicated; I10 Essential (primary) hypertension; Z20.822 Contact with and (suspected) exposure to COVID-19; J44.9 Chronic obstructive pulmonary disease, unspecified; F32.A Depression, unspecified; R74.01 Elevation of levels of liver transaminase levels; R79.89 Other specified abnormal findings of blood chemistry; Z88.8 Allergy status to other drugs, medicaments and biological substances; Z79.899 Other long term (current) drug therapy; Z72.89 Other problems related to lifestyle
CPT/HCPCS: 80053; 80061; 81003; 84439; 84443; 85025; 99285; G0480

== ENCOUNTER 2021-07-31 14:55 | Inpatient (IN) | payer MEDICAID ==
[~2021-07-31] VITALS: Ht 172.7 cm; Wt 77.3 kg
[~2021-07-31 14:55] MED LIST changes: -BENZ2TAB10 PO; -LACT30L PO; -SERT-158 PO
[2021-07-31] MEDS: OLANZapine 5 MG RAPDIS TABLET PO PRN (16:42)
[2021-07-31 17:09] LABS: BASOPHILS % (AUTO) 0.6 % (0.0-2.0); EOSINOPHILS % (AUTO) 0.7 % (1.0-6.0); HEMATOCRIT 41.3 % (41-53); HEMOGLOBIN 13.5 g/dL (13.5-17.5); LYMPHOCYTES # (AUTO) 0.6 K/uL (1.0-4.8); LYMPHOCYTES % (AUTO) 18.6 % (22.0-44.0); MEAN CORPUSCULAR HEMOGLOBIN 27.5 pg (26.0-34.0); MEAN CORPUSCULAR HGB CONC 32.7 G/dL (31.0-37.0); MEAN CORPUSCULAR VOLUME 84 fL (80-100); MONOCYTES # (AUTO) 0.5 K/uL (0.1-1.0); NEUTROPHILS # (AUTO) 2.2 K/uL (1.8-7.7); NEUTROPHILS % (AUTO) 65.1 % (40.0-70.0); PLATELET COUNT (AUTO) 226 K/uL (150-450); RED CELL DISTRIBUTION WIDTH 16.5 % (11.5-14.5)
[2021-07-31 17:13] LABS: ANION GAP 6 mmol/L (8-16); CALCIUM, TOTAL 9.3 mg/dL (8.8-10.5); CARBON DIOXIDE 30 mmol/L (22-29); CHLORIDE 103 mmol/L (98-107); CREATININE 1.31 mg/dL (0.60-1.30); GLUCOSE,RANDOM 88 mg/dL (70-110); POTASSIUM 3.9 mmol/L (3.5-5.1); SODIUM SERUM 139 mmol/L (136-145); UREA NITROGEN, BLOOD 15 mg/dL (7-18)
[2021-07-31 17:15] LABS: GLOMERULAR FILTR. RATE CALC > 60 mL/min (>60)
[2021-07-31 17:18] LABS: ALANINE AMINOTRANSFERASE 82 U/L (12-78); ALKALINE PHOSPHATASE 66 U/L (46-116); ASPARTATE AMINOTRANSFERASE 93 U/L (15-37); BILIRUBIN,TOTAL 0.2 mg/dL (0.1-1.0); TOTAL PROTEIN, SERUM 8.1 g/dL (6.4-8.2)
[2021-07-31 17:22] LABS: APPEARANCE,URINE CLEAR (CLEAR); BILIRUBIN,URINE NEGATIVE (NEGATIVE); GLUCOSE, URINE (UA) NEGATIVE (NEGATIVE); KETONES,URINE NEGATIVE (NEGATIVE); LEUKOCYTE ESTERASE ,URINE NEGATIVE (NEGATIVE); NITRATE,URINE NEGATIVE (NEGATIVE); OCCULT BLOOD,URINE NEGATIVE (NEGATIVE); PROTEIN,URINE NEGATIVE (NEGATIVE); UROBILINOGEN,URINE 0.2 mg/dL (<=1.0)
[2021-07-31 17:25] LABS: PH,URINE 5.5 (5.0-8.0)
[2021-07-31 17:29] LABS: AMPHET/METH SCREEN,URINE NEGATIVE (NEGATIVE); BARBITURATE SCREEN, URINE NEGATIVE (NEGATIVE); BENZODIAZEPINES SCREEN,URINE NEGATIVE (NEGATIVE); CANNABINOID SCREEN,URINE POSITIVE (NEGATIVE); COCAINE SCREEN,URINE NEGATIVE (NEGATIVE); METHADONE SCREEN, URINE NEGATIVE (NEGATIVE); OPIATE SCREEN,URINE NEGATIVE (NEGATIVE)
[2021-07-31] MEDS ORDERED: LOPERAMIDE HCL 2 MG CAPSULE PO PRN (17:30)
[2021-07-31] MEDS ORDERED: BENZOCAINE/MENTHOL LOZENGE PO PRN (17:30)
[2021-07-31] MEDS ORDERED: CloNIDine HCL 0.1 MG TABLET PO PRN (17:30)
[2021-07-31] MEDS ORDERED: ALBUTEROL SULFATE HFA 90 MCG/PUFF 8 GM INHALER IH PRN (17:30)
[2021-07-31] MEDS ORDERED: PETROLATUM,WHITE 28 GM JELLY TP PRN (17:30)
[2021-07-31] MEDS ORDERED: MAGNESIUM HYDROXIDE SUSPENSION 30 ML UDCUP PO PRN (17:30)
[2021-07-31] MEDS ORDERED: OMEPRAZOLE 20 MG CAPSULE PO PRN (17:30)
[2021-07-31] MEDS ORDERED: BACITRACIN 28 GM OINTMENT TP PRN (17:30)
[2021-07-31] MEDS ORDERED: DOCUSATE SODIUM 100 MG CAPSULE PO PRN (17:30)
[2021-07-31] MEDS ORDERED: MAG HYDROX/AL HYDROX/SIMETH ES 30 ML SUSPENSION UDCUP PO PRN (17:30)
[2021-07-31] MEDS ORDERED: ONDANSETRON HCL 4 MG TABLET PO PRN (17:30)
[2021-07-31 17:31] LABS: PHENCYCLIDINE SCREEN,URINE NEGATIVE (NEGATIVE)
[2021-07-31] MEDS ORDERED: ACETAMINOPHEN 500 MG TABLET PO ONE (17:45)
[2021-07-31 18:26] LABS: COVID AG,FIA SOURCE NASOPHARYNGEAL
[2021-07-31] MEDS: IBUPROFEN 600 MG TABLET PO PRN (23:11)
[2021-08-01] VITALS (11 sets, daily range): BP systolic 113–153; BP diastolic 71–95
[2021-08-01] MEDS ORDERED: INFLUENZA VIRUS VACCINE QVS 2021-22 (6MO+)/PF 60 MCG/0.5 ML SYRINGE IM. ONE (02:15)
[2021-08-01] MEDS ORDERED: PNEUMOCOCCAL VACCINE POLYVALENT 0.5 ML VIAL [PPSV23] IM. ONE (02:15)
[2021-08-01] MEDS: IBUPROFEN 600 MG TABLET PO PRN ×2 (06:42→14:17)
[2021-08-01 08:09] LABS: CHOL/HDL RATIO 2.3 (4.2-7.3); FREE T4 (FREE THYROXINE) 0.76 ng/dL (0.76-1.46); THYROID STIMULATING HORMONE 1.71 uIU/mL (0.36-3.74)
[2021-08-01] MEDS: LISINOPRIL 10 MG TABLET PO SCH (10:00)
[2021-08-01] MEDS: ACETAMINOPHEN 325 MG TABLET PO PRN (12:52)
[2021-08-01] MEDS: LIDOCAINE 5% TRANSDERMAL PATCH TD SCH (16:15)
[2021-08-01] MEDS: OLANZapine 5 MG RAPDIS TABLET PO PRN (18:02)
[2021-08-01] MEDS: LORazepam 2 MG TABLET PO PRN (18:02)
[2021-08-01] MEDS: -LIDODERM PATCH NOTE- MISC SCH (20:48)
[2021-08-01] MEDS: OLANZapine 10 MG TABLET PO SCH (20:49)
[2021-08-01] MEDS: ZOLPIDEM TARTRATE 10 MG TABLET PO PRN (20:49)
[2021-08-02] MEDS: IBUPROFEN 600 MG TABLET PO PRN ×3 (00:09→20:52)
[2021-08-02 00:11] VITALS: BP_SYST 131; BP_SYST 139; BP_DIAS 84; BP_DIAS 87
[2021-08-02] MEDS: LISINOPRIL 10 MG TABLET PO SCH (08:31)
[2021-08-02] MEDS: LIDOCAINE 5% TRANSDERMAL PATCH TD SCH (08:52)
[2021-08-02 09:41] VITALS: BP 124/76
[2021-08-02 12:23] VITALS: BP 137/79
[2021-08-02 16:15] VITALS: BP 132/82
[2021-08-02] MEDS: OLANZapine 10 MG TABLET PO SCH (20:52)
[2021-08-02] MEDS: -LIDODERM PATCH NOTE- MISC SCH (20:52)
[2021-08-03 00:30] VITALS: BP 140/84
[2021-08-03] MEDS: LISINOPRIL 10 MG TABLET PO SCH (08:09)
[2021-08-03] MEDS: LIDOCAINE 5% TRANSDERMAL PATCH TD SCH (08:10)
[2021-08-03 08:48] VITALS: BP 137/81
[2021-08-03] MEDS: IBUPROFEN 600 MG TABLET PO PRN ×2 (13:20→20:50)
[2021-08-03 13:21] VITALS: BP 132/79
[2021-08-03 16:20] VITALS: BP 140/82
[2021-08-03] MEDS: ACETAMINOPHEN 325 MG TABLET PO PRN (17:28)
[2021-08-03] MEDS: OLANZapine 10 MG TABLET PO SCH (20:50)
[2021-08-03] MEDS: -LIDODERM PATCH NOTE- MISC SCH (21:01)
[2021-08-03] MEDS: LORazepam 2 MG TABLET PO PRN (23:42)
[2021-08-03] MEDS: ZOLPIDEM TARTRATE 10 MG TABLET PO PRN (23:43)
[2021-08-04 08:49] VITALS: BP 138/80
[2021-08-04] MEDS: LISINOPRIL 10 MG TABLET PO SCH (09:18)
[2021-08-04] MEDS: LIDOCAINE 5% TRANSDERMAL PATCH TD SCH (09:23)
[2021-08-04] MEDS: IBUPROFEN 600 MG TABLET PO PRN ×2 (12:24→23:55)
[2021-08-04 16:23] VITALS: BP 144/93
[2021-08-04] MEDS: ACETAMINOPHEN 325 MG TABLET PO PRN (16:26)
[2021-08-04] MEDS: LORazepam 2 MG TABLET PO PRN ×2 (16:29→23:55)
[2021-08-04] MEDS: -LIDODERM PATCH NOTE- MISC SCH (21:15)
[2021-08-04] MEDS: OLANZapine 10 MG TABLET PO SCH (21:15)
[2021-08-04] MEDS: ZOLPIDEM TARTRATE 10 MG TABLET PO PRN (21:16)
[2021-08-05 00:16] VITALS: BP 132/82
[2021-08-05] MEDS: ACETAMINOPHEN 325 MG TABLET PO PRN ×2 (01:20→15:49)
[2021-08-05] MEDS: LORazepam 2 MG TABLET PO PRN ×3 (06:59→20:09)
[2021-08-05] MEDS: IBUPROFEN 600 MG TABLET PO PRN (07:00)
[2021-08-05 08:02] VITALS: BP 126/72
[2021-08-05] MEDS: LISINOPRIL 10 MG TABLET PO SCH (08:22)
[2021-08-05] MEDS: LIDOCAINE 5% TRANSDERMAL PATCH TD SCH (08:30)
[2021-08-05 09:57] VITALS: BP 126/72
[2021-08-05 16:10] VITALS: BP 132/70
[2021-08-05] MEDS: OLANZapine 10 MG TABLET PO SCH (20:08)
[2021-08-05] MEDS: -LIDODERM PATCH NOTE- MISC SCH (20:15)
[2021-08-05] MEDS: ZOLPIDEM TARTRATE 10 MG TABLET PO PRN (21:08)
[2021-08-05] MEDS: OLANZapine 5 MG RAPDIS TABLET PO PRN (22:15)
[2021-08-06 00:24] VITALS: BP 126/78
[2021-08-06] MEDS: IBUPROFEN 600 MG TABLET PO PRN (00:26)
[2021-08-06] MEDS: LORazepam 2 MG TABLET PO PRN (00:26)
[2021-08-06] MEDS: ACETAMINOPHEN 325 MG TABLET PO PRN (00:26)
[2021-08-06 01:11] VITALS: BP 136/95
[2021-08-06] MEDS: LISINOPRIL 10 MG TABLET PO SCH (08:16)
[2021-08-06] MEDS: LIDOCAINE 5% TRANSDERMAL PATCH TD SCH (08:16)
[2021-08-06 08:33] VITALS: BP 143/88
[2021-08-06] MEDS ORDERED: OLAN10TA74 PO (09:21)
[2021-08-06] MEDS ORDERED: LISI-661 PO ×2 (09:21→10:32)
== END 2021-08-06 14:04 | disposition home or self-care (01) | DRG 750 ==
LOC: EMS 14:58 → B2S 17:55 → B3A 17:55 → UNDOADMIN 17:55 → B3A 08-01 01:33
PROVIDERS: ADMIT Psychiatry & Neurology Psychiatry; ATTEND Psychiatry & Neurology Psychiatry
DX: F25.0 Schizoaffective disorder, bipolar type (principal); R45.851 Suicidal ideations; F12.90 Cannabis use, unspecified, uncomplicated; F17.200 Nicotine dependence, unspecified, uncomplicated; Z20.822 Contact with and (suspected) exposure to COVID-19; I10 Essential (primary) hypertension; J44.9 Chronic obstructive pulmonary disease, unspecified; S20.212A Contusion of left front wall of thorax, initial encounter; F10.129 Alcohol abuse with intoxication, unspecified; Y90.9 Presence of alcohol in blood, level not specified; W18.30XA Fall on same level, unspecified, initial encounter; Y93.89 Activity, other specified; Y92.89 Other specified places as the place of occurrence of the external cause; Y99.8 Other external cause status; Z71.51 Drug abuse counseling and surveillance of drug abuser; Z71.6 Tobacco abuse counseling; Z28.21 Immunization not carried out because of patient refusal
CPT/HCPCS: 71101; 80053; 80061; 81003; 84439; 84443; 85025; 87081; 90686; 90732; 99285; G0480; Q0162

== ENCOUNTER 2022-01-24 13:18 | Inpatient (IN) | payer MEDICAID ==
[~2022-01-24] VITALS: Ht 172.7 cm; Wt 78.2 kg
[~2022-01-24 13:18] MED LIST changes: +LISI-661 PO; -LISI-893 PO
[2022-01-24] MEDS ORDERED: OLAN7.5T22 PO (13:32)
[2022-01-24 14:56] LABS: BASOPHILS % (AUTO) 0.8 % (0.0-2.0); EOSINOPHILS % (AUTO) 0.5 % (1.0-6.0); HEMATOCRIT 35.5 % (41-53); HEMOGLOBIN 11.5 g/dL (13.5-17.5); LYMPHOCYTES # (AUTO) 1.3 K/uL (1.0-4.8); LYMPHOCYTES % (AUTO) 30.3 % (22.0-44.0); MEAN CORPUSCULAR HEMOGLOBIN 24.8 pg (26.0-34.0); MEAN CORPUSCULAR HGB CONC 32.3 G/dL (31.0-37.0); MEAN CORPUSCULAR VOLUME 77 fL (80-100); MONOCYTES # (AUTO) 0.5 K/uL (0.1-1.0); MONOCYTES % (AUTO) 11.7 % (2.0-9.0); NEUTROPHILS # (AUTO) 2.4 K/uL (1.8-7.7); NEUTROPHILS % (AUTO) 56.7 % (40.0-70.0); PLATELET COUNT (AUTO) 234 K/uL (150-450); RED BLOOD CELL COUNT(AUTO) 4.62 MIL/uL (4.50-5.90); RED CELL DISTRIBUTION WIDTH 18.7 % (11.5-14.5)
[2022-01-24 15:08] LABS: ANION GAP 8 mmol/L (8-16); CALCIUM, TOTAL 8.8 mg/dL (8.8-10.5); CARBON DIOXIDE 30 mmol/L (22-29); CHLORIDE 109 mmol/L (98-107); CREATININE 1.22 mg/dL (0.60-1.30); GLOMERULAR FILTR. RATE CALC > 60 mL/min (>60); GLUCOSE,RANDOM 96 mg/dL (70-110); POTASSIUM 3.8 mmol/L (3.5-5.1); SODIUM SERUM 147 mmol/L (136-145); UREA NITROGEN, BLOOD 13 mg/dL (7-18)
[2022-01-24 15:14] LABS: ALANINE AMINOTRANSFERASE 46 U/L (12-78); ALBUMIN 3.5 g/dL (3.4-5.0); ALKALINE PHOSPHATASE 122 U/L (46-116); ASPARTATE AMINOTRANSFERASE 80 U/L (15-37); BILIRUBIN,TOTAL 0.3 mg/dL (0.1-1.0); TOTAL PROTEIN, SERUM 7.3 g/dL (6.4-8.2)
[2022-01-24 15:29] LABS: AMPHET/METH SCREEN,URINE NEGATIVE (NEGATIVE); BARBITURATE SCREEN, URINE NEGATIVE (NEGATIVE); BENZODIAZEPINES SCREEN,URINE NEGATIVE (NEGATIVE); CANNABINOID SCREEN,URINE POSITIVE (NEGATIVE); COCAINE SCREEN,URINE NEGATIVE (NEGATIVE); METHADONE SCREEN, URINE NEGATIVE (NEGATIVE); OPIATE SCREEN,URINE NEGATIVE (NEGATIVE); PHENCYCLIDINE SCREEN,URINE NEGATIVE (NEGATIVE)
[2022-01-24] MEDS ORDERED: OLANZapine 5 MG RAPDIS TABLET PO ONE (17:00)
[2022-01-24 20:08] LABS: COVID AG,FIA SOURCE NASAL SWAB
[2022-01-24] MEDS ORDERED: HALOPERIDOL 5 MG TABLET PO PRN (20:30)
[2022-01-24 23:33] LABS: APPEARANCE,URINE CLEAR (CLEAR); BILIRUBIN,URINE NEGATIVE (NEGATIVE); GLUCOSE, URINE (UA) NEGATIVE (NEGATIVE); KETONES,URINE NEGATIVE (NEGATIVE); LEUKOCYTE ESTERASE ,URINE NEGATIVE (NEGATIVE); NITRATE,URINE NEGATIVE (NEGATIVE); OCCULT BLOOD,URINE NEGATIVE (NEGATIVE); PROTEIN,URINE 30-70 mg/dL (NEGATIVE); SPECIFIC GRAVITIY, URINE 1.026 (1.003-1.030); UROBILINOGEN,URINE <=1.0 mg/dL (<=1.0)
[2022-01-25 09:40] VITALS: BP 150/93
[2022-01-25] MEDS ORDERED: PNEUMOCOCCAL VACCINE POLYVALENT 0.5 ML VIAL [PPSV23] IM. ONE (11:00)
[2022-01-25 16:00] VITALS: BP 155/84
[2022-01-25] MEDS: LORazepam 2 MG TABLET PO PRN (16:55)
[2022-01-25] MEDS: OLANZapine 7.5 MG TABLET PO SCH (20:58)
[2022-01-26] MEDS ORDERED: LOPERAMIDE HCL 2 MG CAPSULE PO PRN (06:30)
[2022-01-26] MEDS ORDERED: CloNIDine HCL 0.1 MG TABLET PO PRN (06:30)
[2022-01-26] MEDS ORDERED: GuaiFENesin/D-METHORPHAN [SUGAR-FREE] 200-20MG/10 ML SYRUP UDCUP PO PRN (06:30)
[2022-01-26] MEDS ORDERED: ALBUTEROL SULFATE HFA 90 MCG/PUFF 8 GM INHALER IH PRN (06:30)
[2022-01-26] MEDS ORDERED: MAGNESIUM HYDROXIDE SUSPENSION 30 ML UDCUP PO PRN (06:30)
[2022-01-26] MEDS ORDERED: PETROLATUM,WHITE 28 GM JELLY TP PRN (06:30)
[2022-01-26] MEDS ORDERED: MAG HYDROX/AL HYDROX/SIMETH ES 30 ML SUSPENSION UDCUP PO PRN (06:30)
[2022-01-26] MEDS ORDERED: NICOTINE 14 MG/24 HOUR PATCH TD PRN (06:30)
[2022-01-26] MEDS ORDERED: DOCUSATE SODIUM 100 MG CAPSULE PO PRN (06:30)
[2022-01-26] MEDS ORDERED: ONDANSETRON HCL 4 MG TABLET PO PRN (06:30)
[2022-01-26 09:41] VITALS: BP 160/92
[2022-01-26] MEDS: OLANZapine 5 MG TABLET PO SCH (11:44)
[2022-01-26] MEDS: BACITRACIN 28 GM OINTMENT TP SCH (15:21)
[2022-01-26 16:19] VITALS: BP 145/97
[2022-01-26] MEDS: LORazepam 2 MG TABLET PO PRN (18:53)
[2022-01-26] MEDS: OLANZapine 7.5 MG TABLET PO SCH (20:23)
[2022-01-26 20:45] VITALS: BP 140/99
[2022-01-26] MEDS: IBUPROFEN 400 MG TABLET PO PRN (20:47)
[2022-01-27] MEDS: OLANZapine 5 MG TABLET PO SCH (08:34)
[2022-01-27] MEDS: BACITRACIN 28 GM OINTMENT TP SCH (08:34)
[2022-01-27 09:52] VITALS: BP 142/92
[2022-01-27 16:00] VITALS: BP 152/98
[2022-01-27] MEDS: IBUPROFEN 400 MG TABLET PO PRN (18:06)
[2022-01-27] MEDS: OLANZapine 7.5 MG TABLET PO SCH (20:08)
[2022-01-27] MEDS: ZOLPIDEM TARTRATE 10 MG TABLET PO PRN (20:08)
[2022-01-28 08:44] VITALS: BP 153/99
[2022-01-28] MEDS: BACITRACIN 28 GM OINTMENT TP SCH (09:02)
[2022-01-28] MEDS: OLANZapine 5 MG TABLET PO SCH (09:02)
[2022-01-28 16:00] VITALS: BP 158/87
[2022-01-28 19:00] VITALS: BP 152/88
[2022-01-28] MEDS: IBUPROFEN 400 MG TABLET PO PRN (19:00)
[2022-01-28] MEDS: OLANZapine 7.5 MG TABLET PO SCH (20:01)
[2022-01-28] MEDS: ZOLPIDEM TARTRATE 10 MG TABLET PO PRN (20:28)
[2022-01-29 08:39] VITALS: BP 160/99
[2022-01-29] MEDS: OLANZapine 5 MG TABLET PO SCH (08:44)
[2022-01-29] MEDS: BACITRACIN 28 GM OINTMENT TP SCH (08:44)
[2022-01-29 10:27] VITALS: BP 142/84
[2022-01-29] MEDS: IBUPROFEN 400 MG TABLET PO PRN ×2 (10:27→16:30)
[2022-01-29 16:00] VITALS: BP 106/53
[2022-01-29 16:30] VITALS: BP 110/60
[2022-01-29] MEDS: OLANZapine 7.5 MG TABLET PO SCH (20:26)
[2022-01-29] MEDS: ZOLPIDEM TARTRATE 10 MG TABLET PO PRN (20:27)
[2022-01-30 06:24] VITALS: BP 132/90
[2022-01-30] MEDS: IBUPROFEN 400 MG TABLET PO PRN ×2 (06:24→15:16)
[2022-01-30 08:00] VITALS: BP 116/64
[2022-01-30] MEDS: BACITRACIN 28 GM OINTMENT TP SCH (09:00)
[2022-01-30] MEDS: OLANZapine 5 MG TABLET PO SCH (09:39)
[2022-01-30] MEDS: ACETAMINOPHEN 325 MG TABLET PO PRN ×2 (11:47→18:51)
[2022-01-30 15:34] LABS: COVID AG,FIA SOURCE NASAL SWAB
[2022-01-30 16:45] VITALS: BP 140/99
[2022-01-30 18:51] VITALS: BP 133/89
[2022-01-30] MEDS: ZOLPIDEM TARTRATE 10 MG TABLET PO PRN (21:29)
[2022-01-30] MEDS: OLANZapine 7.5 MG TABLET PO SCH (21:29)
[2022-01-31 08:46] VITALS: BP 114/61
[2022-01-31] MEDS: OLANZapine 5 MG TABLET PO SCH (09:44)
[2022-01-31] MEDS: BACITRACIN 28 GM OINTMENT TP SCH (09:44)
[2022-01-31] MEDS: IBUPROFEN 400 MG TABLET PO PRN (12:25)
[2022-01-31 12:26] VITALS: BP 160/88
[2022-01-31 13:20] VITALS: BP 120/69
[2022-01-31 16:55] VITALS: BP 116/80
[2022-01-31] MEDS: OLANZapine 7.5 MG TABLET PO SCH (20:02)
[2022-01-31] MEDS: ZOLPIDEM TARTRATE 10 MG TABLET PO PRN (20:21)
[2022-02-01 08:46] VITALS: BP 140/84
[2022-02-01] MEDS: OLANZapine 5 MG TABLET PO SCH (10:22)
[2022-02-01] MEDS: BACITRACIN 28 GM OINTMENT TP SCH (10:22)
[2022-02-01] MEDS: IBUPROFEN 400 MG TABLET PO PRN (12:34)
[2022-02-01 12:36] VITALS: BP 138/80
[2022-02-01 13:36] VITALS: BP 132/83
[2022-02-01 17:01] VITALS: BP 145/74
[2022-02-01] MEDS: ZOLPIDEM TARTRATE 10 MG TABLET PO PRN (20:18)
[2022-02-01] MEDS: OLANZapine 7.5 MG TABLET PO SCH (20:18)
[2022-02-02 08:00] VITALS: BP 156/93
[2022-02-02] MEDS: OLANZapine 5 MG TABLET PO SCH (08:40)
[2022-02-02] MEDS: BACITRACIN 28 GM OINTMENT TP SCH (08:40)
[2022-02-02] MEDS: MULTIVITAMINS WITH MINERALS, THERAPEUTIC TABLET PO SCH (08:40)
[2022-02-02 13:49] VITALS: BP 136/84
[2022-02-02] MEDS: IBUPROFEN 400 MG TABLET PO PRN (13:49)
[2022-02-02 16:00] VITALS: BP 119/73
[2022-02-02 19:38] VITALS: BP 124/86
[2022-02-02] MEDS: ACETAMINOPHEN 325 MG TABLET PO PRN (19:39)
[2022-02-02] MEDS: OLANZapine 7.5 MG TABLET PO SCH (20:06)
[2022-02-02] MEDS: ZOLPIDEM TARTRATE 10 MG TABLET PO PRN (20:36)
[2022-02-03] MEDS: BACITRACIN 28 GM OINTMENT TP SCH (09:00)
[2022-02-03] MEDS: MULTIVITAMINS WITH MINERALS, THERAPEUTIC TABLET PO SCH (09:20)
[2022-02-03] MEDS: OLANZapine 5 MG TABLET PO SCH (09:20)
[2022-02-03 11:23] VITALS: BP 132/69
[2022-02-03 17:30] VITALS: BP 124/72
[2022-02-03 19:17] VITALS: BP 118/75
[2022-02-03] MEDS: IBUPROFEN 400 MG TABLET PO PRN (19:17)
[2022-02-03] MEDS: OLANZapine 7.5 MG TABLET PO SCH (20:07)
[2022-02-04] MEDS: OLANZapine 5 MG TABLET PO SCH (08:27)
[2022-02-04] MEDS: MULTIVITAMINS WITH MINERALS, THERAPEUTIC TABLET PO SCH (08:27)
[2022-02-04 08:30] VITALS: BP 134/95
[2022-02-04] MEDS: BACITRACIN 28 GM OINTMENT TP SCH (08:30)
[2022-02-04 16:55] VITALS: BP 124/82
[2022-02-04] MEDS: IBUPROFEN 400 MG TABLET PO PRN (19:13)
[2022-02-04] MEDS: ZOLPIDEM TARTRATE 10 MG TABLET PO PRN (20:16)
[2022-02-04] MEDS: OLANZapine 7.5 MG TABLET PO SCH (20:17)
[2022-02-05 08:00] VITALS: BP 121/78
[2022-02-05] MEDS: OLANZapine 5 MG TABLET PO SCH (08:52)
[2022-02-05] MEDS: MULTIVITAMINS WITH MINERALS, THERAPEUTIC TABLET PO SCH (08:52)
[2022-02-05] MEDS: BACITRACIN 28 GM OINTMENT TP SCH (09:00)
[2022-02-05] MEDS: IBUPROFEN 400 MG TABLET PO PRN (13:42)
[2022-02-05 16:00] VITALS: BP 143/99
[2022-02-05 16:49] VITALS: BP 143/99
[2022-02-05] MEDS: OLANZapine 7.5 MG TABLET PO SCH (20:08)
[2022-02-05] MEDS: ZOLPIDEM TARTRATE 10 MG TABLET PO PRN (20:09)
[2022-02-06 08:00] VITALS: BP 116/59
[2022-02-06 08:13] LABS: COVID AG,FIA SOURCE NASAL SWAB
[2022-02-06] MEDS: OLANZapine 5 MG TABLET PO SCH (08:41)
[2022-02-06] MEDS: MULTIVITAMINS WITH MINERALS, THERAPEUTIC TABLET PO SCH (08:41)
[2022-02-06 16:14] VITALS: BP 119/74
[2022-02-06] MEDS: IBUPROFEN 400 MG TABLET PO PRN (16:36)
[2022-02-06] MEDS: OLANZapine 7.5 MG TABLET PO SCH (20:13)
[2022-02-06] MEDS: ZOLPIDEM TARTRATE 10 MG TABLET PO PRN (20:13)
[2022-02-07] MEDS: OLANZapine 5 MG TABLET PO SCH (08:27)
[2022-02-07] MEDS: MULTIVITAMINS WITH MINERALS, THERAPEUTIC TABLET PO SCH (08:27)
[2022-02-07 16:15] VITALS: BP 117/74
[2022-02-07] MEDS: IBUPROFEN 400 MG TABLET PO PRN (16:15)
[2022-02-07 16:56] VITALS: BP 117/74
[2022-02-07] MEDS: OLANZapine 7.5 MG TABLET PO SCH (20:24)
[2022-02-07] MEDS: ZOLPIDEM TARTRATE 10 MG TABLET PO PRN (20:24)
[2022-02-08 08:00] VITALS: BP 136/79
[2022-02-08] MEDS: MULTIVITAMINS WITH MINERALS, THERAPEUTIC TABLET PO SCH (08:58)
[2022-02-08] MEDS: OLANZapine 5 MG TABLET PO SCH (08:58)
[2022-02-08 16:29] VITALS: BP 109/75
[2022-02-08] MEDS: ZOLPIDEM TARTRATE 10 MG TABLET PO PRN (20:09)
[2022-02-08] MEDS: OLANZapine 7.5 MG TABLET PO SCH (20:09)
[2022-02-09 08:02] VITALS: BP 108/63
[2022-02-09] MEDS: MULTIVITAMINS WITH MINERALS, THERAPEUTIC TABLET PO SCH (09:04)
[2022-02-09] MEDS: OLANZapine 5 MG TABLET PO SCH (09:05)
[2022-02-09 11:26] LABS: ANION GAP 5 mmol/L (8-16); CALCIUM, TOTAL 9.5 mg/dL (8.8-10.5); CARBON DIOXIDE 32 mmol/L (22-29); CHLORIDE 101 mmol/L (98-107); CREATININE 0.98 mg/dL (0.60-1.30); GLUCOSE,RANDOM 87 mg/dL (70-110); POTASSIUM 4.4 mmol/L (3.5-5.1); SODIUM SERUM 138 mmol/L (136-145); UREA NITROGEN, BLOOD 12 mg/dL (7-18)
[2022-02-09 11:27] LABS: GLOMERULAR FILTR. RATE CALC > 60 mL/min (>60)
[2022-02-09 16:29] VITALS: BP 135/76
[2022-02-09] MEDS ORDERED: OLAN5TAB52 PO (17:35)
[2022-02-10] MEDS ORDERED: OLAN5TAB52 PO (03:22)
[2022-02-10] MEDS ORDERED: OLAN15TA2 PO (03:22)
== END 2022-02-09 18:00 | disposition home or self-care (01) | DRG 750 ==
LOC: EMS 13:18 → 3EC 01-25 06:06 → 3EI 01-25 09:08
PROVIDERS: ADMIT Psychiatry & Neurology Psychiatry; ATTEND Psychiatry & Neurology Psychiatry
DX: F25.1 Schizoaffective disorder, depressive type (principal); E87.0 Hyperosmolality and hypernatremia; R45.851 Suicidal ideations; D72.819 Decreased white blood cell count, unspecified; E78.5 Hyperlipidemia, unspecified; Y90.6 Blood alcohol level of 120-199 mg/100 ml; Z20.822 Contact with and (suspected) exposure to COVID-19; D64.9 Anemia, unspecified; F10.20 Alcohol dependence, uncomplicated; M79.604 Pain in right leg; F12.10 Cannabis abuse, uncomplicated; I10 Essential (primary) hypertension; J45.909 Unspecified asthma, uncomplicated; Z59.00 Homelessness unspecified; Z91.51 Personal history of suicidal behavior; Z28.21 Immunization not carried out because of patient refusal; Z88.8 Allergy status to other drugs, medicaments and biological substances; Z79.899 Other long term (current) drug therapy
CPT/HCPCS: 80048; 80053; 81003; 85025; 99285; G0480

== ENCOUNTER 2022-02-26 07:43 | Inpatient (IN) | payer MEDICAID ==
[~2022-02-26] VITALS: Ht 172.7 cm; Wt 81.9 kg
[~2022-02-26 07:43] MED LIST changes: -LISI-661 PO; -OLAN10TA74 PO; +OLAN15TA2 PO; +OLAN5TAB52 PO; +OLAN7.5T22 PO
[2022-02-26 10:58] VITALS: BP 105/60
[2022-02-26] MEDS ORDERED: ChlorproMAZINE HCL 50 MG TABLET PO PRN (11:45)
[2022-02-26] MEDS: OLANZapine 5 MG TABLET PO SCH (12:02)
[2022-02-26 16:20] VITALS: BP 141/77
[2022-02-26] MEDS: OLANZapine 7.5 MG TABLET PO SCH (20:11)
[2022-02-26 20:26] VITALS: BP 126/79
[2022-02-27] MEDS ORDERED: MAG HYDROX/AL HYDROX/SIMETH ES 30 ML SUSPENSION UDCUP PO PRN (07:00)
[2022-02-27] MEDS ORDERED: ACETAMINOPHEN 325 MG TABLET PO PRN (07:00)
[2022-02-27] MEDS ORDERED: DOCUSATE SODIUM 100 MG CAPSULE PO PRN (07:00)
[2022-02-27] MEDS ORDERED: ALBUTEROL SULFATE HFA 90 MCG/PUFF 8 GM INHALER IH PRN (07:00)
[2022-02-27] MEDS ORDERED: GuaiFENesin/D-METHORPHAN [SUGAR-FREE] 200-20MG/10 ML SYRUP UDCUP PO PRN (07:00)
[2022-02-27] MEDS ORDERED: CloNIDine HCL 0.1 MG TABLET PO PRN (07:00)
[2022-02-27] MEDS ORDERED: PETROLATUM,WHITE 28 GM JELLY TP PRN (07:00)
[2022-02-27] MEDS ORDERED: NICOTINE 14 MG/24 HOUR PATCH TD PRN (07:00)
[2022-02-27] MEDS ORDERED: IBUPROFEN 400 MG TABLET PO PRN (07:00)
[2022-02-27] MEDS ORDERED: MAGNESIUM HYDROXIDE SUSPENSION 30 ML UDCUP PO PRN (07:00)
[2022-02-27] MEDS ORDERED: LOPERAMIDE HCL 2 MG CAPSULE PO PRN (07:00)
[2022-02-27] MEDS ORDERED: ONDANSETRON HCL 4 MG TABLET PO PRN (07:00)
[2022-02-27] MEDS: OLANZapine 5 MG TABLET PO SCH (08:04)
[2022-02-27 08:14] VITALS: BP 126/80
[2022-02-27] MEDS: LORazepam 2 MG TABLET PO PRN (16:49)
[2022-02-27 20:06] VITALS: BP 135/86
[2022-02-27] MEDS: OLANZapine 7.5 MG TABLET PO SCH (20:33)
[2022-02-28 07:35] LABS: BASOPHILS % (AUTO) 0.7 % (0.0-2.0); EOSINOPHILS % (AUTO) 2.7 % (1.0-6.0); HEMATOCRIT 38.5 % (41-53); HEMOGLOBIN 12.2 g/dL (13.5-17.5); LYMPHOCYTES # (AUTO) 1.3 K/uL (1.0-4.8); LYMPHOCYTES % (AUTO) 32.3 % (22.0-44.0); MEAN CORPUSCULAR HEMOGLOBIN 24.2 pg (26.0-34.0); MEAN CORPUSCULAR HGB CONC 31.8 G/dL (31.0-37.0); MEAN CORPUSCULAR VOLUME 76 fL (80-100); MONOCYTES # (AUTO) 0.4 K/uL (0.1-1.0); MONOCYTES % (AUTO) 9.2 % (2.0-9.0); NEUTROPHILS # (AUTO) 2.2 K/uL (1.8-7.7); NEUTROPHILS % (AUTO) 55.1 % (40.0-70.0); PLATELET COUNT (AUTO) 233 K/uL (150-450); RED BLOOD CELL COUNT(AUTO) 5.06 MIL/uL (4.50-5.90); RED CELL DISTRIBUTION WIDTH 20.7 % (11.5-14.5)
[2022-02-28 07:48] LABS: APPEARANCE,URINE CLEAR (CLEAR); BILIRUBIN,URINE NEGATIVE (NEGATIVE); GLUCOSE, URINE (UA) NEGATIVE (NEGATIVE); KETONES,URINE NEGATIVE (NEGATIVE); LEUKOCYTE ESTERASE ,URINE NEGATIVE (NEGATIVE); NITRATE,URINE NEGATIVE (NEGATIVE); OCCULT BLOOD,URINE NEGATIVE (NEGATIVE); PROTEIN,URINE TRACE mg/dL (NEGATIVE); SPECIFIC GRAVITIY, URINE 1.027 (1.003-1.030)
[2022-02-28 07:48] LABS: HEMOGLOBIN A1C 5.6 % (3.8-5.6)
[2022-02-28 07:59] LABS: AMPHET/METH SCREEN,URINE NEGATIVE (NEGATIVE); BARBITURATE SCREEN, URINE NEGATIVE (NEGATIVE); BENZODIAZEPINES SCREEN,URINE NEGATIVE (NEGATIVE); CANNABINOID SCREEN,URINE POSITIVE (NEGATIVE); COCAINE SCREEN,URINE NEGATIVE (NEGATIVE); METHADONE SCREEN, URINE NEGATIVE (NEGATIVE); OPIATE SCREEN,URINE NEGATIVE (NEGATIVE); PHENCYCLIDINE SCREEN,URINE NEGATIVE (NEGATIVE)
[2022-02-28 08:03] LABS: ALANINE AMINOTRANSFERASE 127 U/L (12-78); ALBUMIN 3.1 g/dL (3.4-5.0); ALKALINE PHOSPHATASE 145 U/L (46-116); ANION GAP 5 mmol/L (8-16); ASPARTATE AMINOTRANSFERASE 92 U/L (15-37); BILIRUBIN,TOTAL 0.2 mg/dL (0.1-1.0); CALCIUM, TOTAL 8.8 mg/dL (8.8-10.5); CARBON DIOXIDE 29 mmol/L (22-29); CHLORIDE 104 mmol/L (98-107); CHOL/HDL RATIO 2.4 (4.2-7.3); CHOLESTEROL 182 mg/dL (131-200); CREATININE 0.99 mg/dL (0.60-1.30); FREE T4 (FREE THYROXINE) 1.02 ng/dL (0.76-1.46); GLUCOSE,RANDOM 72 mg/dL (70-110); HDL CHOLESTEROL 75 mg/dL (40-60); LDL CHOL (CALC.) 98 mg/dL (0-130); POTASSIUM 3.6 mmol/L (3.5-5.1); SODIUM SERUM 138 mmol/L (136-145); THYROID STIMULATING HORMONE 1.93 uIU/mL (0.36-3.74); TOTAL PROTEIN, SERUM 6.6 g/dL (6.4-8.2); TRIGLYCERIDES 45 mg/dL (15-150); UREA NITROGEN, BLOOD 11 mg/dL (7-18)
[2022-02-28 08:05] LABS: GLOMERULAR FILTR. RATE CALC > 60 mL/min (>60)
[2022-02-28 08:08] LABS: BACTERIA,URINE None Seen /HPF (None Seen); CALCIUM OXALATE CRYSTALS,UR Few /LPF (None Seen); RBC,URINE None Seen /HPF (0-2); SQUAMOUS EPITHELIAL CELL,UR Few /LPF (None Seen); WBC,URINE 0-2 /HPF (0-5); YEAST,URINE None Seen /HPF (None Seen)
[2022-02-28] MEDS: OLANZapine 5 MG TABLET PO SCH (08:08)
[2022-02-28 08:37] VITALS: BP 123/75
[2022-02-28] MEDS: OLANZapine 7.5 MG TABLET PO SCH (20:14)
[2022-02-28 20:46] VITALS: BP 119/60
[2022-02-28] MEDS: ZOLPIDEM TARTRATE 10 MG TABLET PO PRN (22:46)
[2022-03-01 08:45] VITALS: BP 124/76
[2022-03-01] MEDS: OLANZapine 5 MG TABLET PO SCH (09:06)
[2022-03-01] MEDS: LORazepam 2 MG TABLET PO PRN (16:25)
[2022-03-01] MEDS: OLANZapine 7.5 MG TABLET PO SCH (20:13)
[2022-03-01 20:38] VITALS: BP 136/83
[2022-03-02 08:17] VITALS: BP 109/64
[2022-03-02] MEDS: OLANZapine 5 MG TABLET PO SCH (08:34)
[2022-03-02 20:03] VITALS: BP 130/78
[2022-03-02] MEDS: OLANZapine 7.5 MG TABLET PO SCH (20:05)
[2022-03-02] MEDS: ZOLPIDEM TARTRATE 10 MG TABLET PO PRN (20:24)
[2022-03-03] MEDS: OLANZapine 5 MG TABLET PO SCH (08:00)
[2022-03-03 08:29] VITALS: BP 128/76
[2022-03-03 09:06] LABS: GLUCOMETER DEV NAME(LOC) POC.BV
[2022-03-03] MEDS: OLANZapine 7.5 MG TABLET PO SCH (20:30)
[2022-03-03 21:21] VITALS: BP 132/80
[2022-03-04] MEDS: OLANZapine 5 MG TABLET PO SCH (08:21)
[2022-03-04 08:22] VITALS: BP 121/70
[2022-03-04 20:10] VITALS: BP 157/71
[2022-03-04] MEDS: OLANZapine 7.5 MG TABLET PO SCH (20:34)
[2022-03-04] MEDS: ZOLPIDEM TARTRATE 10 MG TABLET PO PRN (22:47)
[2022-03-05 08:11] VITALS: BP 114/69
[2022-03-05] MEDS: OLANZapine 5 MG TABLET PO SCH (08:29)
[2022-03-05 20:03] VITALS: BP 117/64
[2022-03-05] MEDS: OLANZapine 7.5 MG TABLET PO SCH (20:09)
[2022-03-06] MEDS: OLANZapine 5 MG TABLET PO SCH (08:25)
[2022-03-06 10:00] VITALS: BP 123/76
[2022-03-06] MEDS: LORazepam 2 MG TABLET PO PRN (16:09)
[2022-03-06 20:09] VITALS: BP 136/79
[2022-03-06] MEDS: OLANZapine 7.5 MG TABLET PO SCH (20:15)
[2022-03-07] MEDS: OLANZapine 5 MG TABLET PO SCH (08:13)
[2022-03-07 08:34] VITALS: BP_SYST 119; BP_SYST 134; BP_DIAS 77; BP_DIAS 80
[2022-03-07 20:10] VITALS: BP 128/75
[2022-03-07] MEDS: OLANZapine 7.5 MG TABLET PO SCH (20:19)
[2022-03-07] MEDS: ZOLPIDEM TARTRATE 10 MG TABLET PO PRN (21:45)
[2022-03-08 08:11] VITALS: BP 136/70
[2022-03-08] MEDS: OLANZapine 5 MG TABLET PO SCH (08:48)
[2022-03-08 20:10] VITALS: BP 125/73
[2022-03-08] MEDS: OLANZapine 7.5 MG TABLET PO SCH (20:31)
[2022-03-08] MEDS: ZOLPIDEM TARTRATE 10 MG TABLET PO PRN (21:10)
[2022-03-09 08:06] VITALS: BP 127/72
[2022-03-09] MEDS: OLANZapine 5 MG TABLET PO SCH (08:43)
[2022-03-09 20:15] VITALS: BP 138/86
[2022-03-09] MEDS: OLANZapine 7.5 MG TABLET PO SCH (20:28)
[2022-03-10] MEDS: OLANZapine 5 MG TABLET PO SCH (08:34)
[2022-03-10 08:35] VITALS: BP 146/97
[2022-03-10 16:46] LABS: GLUCOMETER DEV NAME(LOC) POC.BV
[2022-03-10] MEDS: OLANZapine 7.5 MG TABLET PO SCH (20:09)
[2022-03-10 20:16] VITALS: BP 128/80
[2022-03-10] MEDS: ZOLPIDEM TARTRATE 10 MG TABLET PO PRN (21:43)
[2022-03-11] MEDS: OLANZapine 5 MG TABLET PO SCH (08:03)
[2022-03-11 08:28] VITALS: BP 140/80
[2022-03-11] MEDS ORDERED: OLAN5TAB52 PO (13:36)
[2022-03-11] MEDS ORDERED: OLAN7.5T22 PO (13:36)
== END 2022-03-11 12:30 | disposition home or self-care (01) | DRG 750 ==
LOC: B2S 10:23
PROVIDERS: ADMIT Psychiatry & Neurology Psychiatry; ATTEND Psychiatry & Neurology Psychiatry
DX: F25.1 Schizoaffective disorder, depressive type (principal); R45.851 Suicidal ideations; E78.5 Hyperlipidemia, unspecified; F12.10 Cannabis abuse, uncomplicated; I10 Essential (primary) hypertension; Z20.822 Contact with and (suspected) exposure to COVID-19; J45.909 Unspecified asthma, uncomplicated; Z59.00 Homelessness unspecified; Z91.51 Personal history of suicidal behavior; Z79.899 Other long term (current) drug therapy; Z88.8 Allergy status to other drugs, medicaments and biological substances
CPT/HCPCS: 80053; 80061; 80307; 81001; 83036; 84439; 84443; 85025; 87081

== ENCOUNTER 2022-04-05 05:38 | Inpatient (IN) | payer MEDICAID ==
[~2022-04-05] VITALS: Ht 172.7 cm; Wt 81.7 kg
[2022-04-05 14:22] VITALS: BP 146/100
[2022-04-05] MEDS ORDERED: PNEUMOCOCCAL VACCINE POLYVALENT 0.5 ML VIAL [PPSV23] IM. ONE (14:45)
[2022-04-05] MEDS: LORazepam 2 MG TABLET PO PRN (15:06)
[2022-04-05] MEDS ORDERED: NICOTINE POLACRILEX 2 MG LOZENGE PO PRN (15:30)
[2022-04-06 05:34] VITALS: BP 104/71
[2022-04-06] MEDS ORDERED: MAGNESIUM HYDROXIDE SUSPENSION 30 ML UDCUP PO PRN (06:45)
[2022-04-06] MEDS ORDERED: DOCUSATE SODIUM 100 MG CAPSULE PO PRN (06:45)
[2022-04-06] MEDS ORDERED: NICOTINE 14 MG/24 HOUR PATCH TD PRN (06:45)
[2022-04-06] MEDS ORDERED: PETROLATUM,WHITE 28 GM JELLY TP PRN (06:45)
[2022-04-06] MEDS ORDERED: MAG HYDROX/AL HYDROX/SIMETH ES 30 ML SUSPENSION UDCUP PO PRN (06:45)
[2022-04-06] MEDS ORDERED: ACETAMINOPHEN 325 MG TABLET PO PRN (06:45)
[2022-04-06] MEDS ORDERED: IBUPROFEN 400 MG TABLET PO PRN (06:45)
[2022-04-06] MEDS ORDERED: LOPERAMIDE HCL 2 MG CAPSULE PO PRN (06:45)
[2022-04-06] MEDS ORDERED: CloNIDine HCL 0.1 MG TABLET PO PRN (06:45)
[2022-04-06] MEDS ORDERED: ONDANSETRON HCL 4 MG TABLET PO PRN (06:45)
[2022-04-06] MEDS ORDERED: GuaiFENesin/D-METHORPHAN [SUGAR-FREE] 200-20MG/10 ML SYRUP UDCUP PO PRN (06:45)
[2022-04-06] MEDS ORDERED: ALBUTEROL SULFATE HFA 90 MCG/PUFF 8 GM INHALER IH PRN (06:45)
[2022-04-06 08:43] VITALS: BP 131/89
[2022-04-06] MEDS: LISINOPRIL 10 MG TABLET PO SCH (08:50)
[2022-04-06] MEDS: OLANZapine 5 MG TABLET PO SCH (12:21)
[2022-04-06] MEDS: LORazepam 2 MG TABLET PO PRN (14:41)
[2022-04-06 20:16] VITALS: BP 142/82
[2022-04-06] MEDS: OLANZapine 7.5 MG TABLET PO SCH (20:31)
[2022-04-07 07:05] LABS: BASOPHILS % (AUTO) 0.8 % (0.0-2.0); EOSINOPHILS % (AUTO) 2.2 % (1.0-6.0); HEMATOCRIT 37.6 % (41-53); HEMOGLOBIN 12.3 g/dL (13.5-17.5); LYMPHOCYTES # (AUTO) 1.4 K/uL (1.0-4.8); LYMPHOCYTES % (AUTO) 40.3 % (22.0-44.0); MEAN CORPUSCULAR HEMOGLOBIN 24.7 pg (26.0-34.0); MEAN CORPUSCULAR HGB CONC 32.6 G/dL (31.0-37.0); MEAN CORPUSCULAR VOLUME 76 fL (80-100); MONOCYTES # (AUTO) 0.4 K/uL (0.1-1.0); MONOCYTES % (AUTO) 10.4 % (2.0-9.0); NEUTROPHILS # (AUTO) 1.6 K/uL (1.8-7.7); NEUTROPHILS % (AUTO) 46.3 % (40.0-70.0); PLATELET COUNT (AUTO) 200 K/uL (150-450); RED BLOOD CELL COUNT(AUTO) 4.98 MIL/uL (4.50-5.90); RED CELL DISTRIBUTION WIDTH 22.6 % (11.5-14.5)
[2022-04-07 07:12] LABS: HEMOGLOBIN A1C 5.5 % (3.8-5.6)
[2022-04-07 07:56] LABS: ALBUMIN 3.3 g/dL (3.4-5.0); ALKALINE PHOSPHATASE 120 U/L (46-116); ANION GAP 8 mmol/L (8-16); ASPARTATE AMINOTRANSFERASE 56 U/L (15-37); BILIRUBIN,TOTAL 0.3 mg/dL (0.1-1.0); CALCIUM, TOTAL 8.4 mg/dL (8.8-10.5); CARBON DIOXIDE 25 mmol/L (22-29); CHLORIDE 103 mmol/L (98-107); CHOL/HDL RATIO 2.6 (4.2-7.3); CHOLESTEROL 206 mg/dL (131-200); FREE T4 (FREE THYROXINE) 1.07 ng/dL (0.76-1.46); GLUCOSE,RANDOM 84 mg/dL (70-110); HDL CHOLESTEROL 79 mg/dL (40-60); LDL CHOL (CALC.) 116 mg/dL (0-130); POTASSIUM 3.7 mmol/L (3.5-5.1); SODIUM SERUM 136 mmol/L (136-145); THYROID STIMULATING HORMONE 2.48 uIU/mL (0.36-3.74); TOTAL PROTEIN, SERUM 6.6 g/dL (6.4-8.2); TRIGLYCERIDES 54 mg/dL (15-150); UREA NITROGEN, BLOOD 11 mg/dL (7-18)
[2022-04-07 08:03] LABS: GLOMERULAR FILTR. RATE CALC > 60 mL/min (>60)
[2022-04-07] MEDS: OLANZapine 5 MG TABLET PO SCH (08:22)
[2022-04-07] MEDS: LISINOPRIL 10 MG TABLET PO SCH (08:22)
[2022-04-07] MEDS: LORazepam 2 MG TABLET PO PRN ×2 (08:22→20:20)
[2022-04-07 08:24] LABS: ALANINE AMINOTRANSFERASE 104 U/L (12-78)
[2022-04-07 08:39] VITALS: BP 110/64
[2022-04-07] MEDS: OLANZapine 7.5 MG TABLET PO SCH (20:20)
[2022-04-07 20:21] VITALS: BP 102/72
[2022-04-08 08:27] VITALS: BP 137/77
[2022-04-08] MEDS: OLANZapine 5 MG TABLET PO SCH (08:34)
[2022-04-08] MEDS: LISINOPRIL 10 MG TABLET PO SCH (08:34)
[2022-04-08] MEDS: LORazepam 2 MG TABLET PO PRN ×2 (08:34→16:20)
[2022-04-08 20:43] VITALS: BP 120/80
[2022-04-08] MEDS: ZOLPIDEM TARTRATE 10 MG TABLET PO PRN (20:55)
[2022-04-08] MEDS: OLANZapine 7.5 MG TABLET PO SCH (20:55)
[2022-04-09] MEDS: OLANZapine 5 MG TABLET PO SCH (08:28)
[2022-04-09] MEDS: LISINOPRIL 10 MG TABLET PO SCH (08:28)
[2022-04-09 08:39] VITALS: BP 128/80
[2022-04-09] MEDS: LORazepam 2 MG TABLET PO PRN (16:03)
[2022-04-09] MEDS: OLANZapine 7.5 MG TABLET PO SCH (20:13)
[2022-04-09] MEDS: ZOLPIDEM TARTRATE 10 MG TABLET PO PRN (20:14)
[2022-04-09 20:53] VITALS: BP 127/82
[2022-04-10 08:28] VITALS: BP 152/85
[2022-04-10] MEDS: LISINOPRIL 10 MG TABLET PO SCH (08:51)
[2022-04-10] MEDS: OLANZapine 5 MG TABLET PO SCH (08:51)
[2022-04-10] MEDS: LORazepam 2 MG TABLET PO PRN ×2 (08:51→14:12)
[2022-04-10] MEDS: OLANZapine 7.5 MG TABLET PO SCH (20:15)
[2022-04-10] MEDS: ZOLPIDEM TARTRATE 10 MG TABLET PO PRN (20:16)
[2022-04-10 20:22] VITALS: BP 136/94
[2022-04-11] MEDS: OLANZapine 5 MG TABLET PO SCH (08:49)
[2022-04-11] MEDS: LORazepam 2 MG TABLET PO PRN ×2 (08:49→20:22)
[2022-04-11] MEDS: LISINOPRIL 10 MG TABLET PO SCH (08:49)
[2022-04-11 08:50] VITALS: BP 108/60
[2022-04-11 09:26] LABS: GLUCOMETER DEV NAME(LOC) POC.BV
[2022-04-11] MEDS: OLANZapine 7.5 MG TABLET PO SCH (20:22)
[2022-04-11 20:25] VITALS: BP 110/66
[2022-04-12 08:12] VITALS: BP 122/72
[2022-04-12] MEDS: LISINOPRIL 10 MG TABLET PO SCH (08:31)
[2022-04-12] MEDS: OLANZapine 5 MG TABLET PO SCH (08:31)
[2022-04-12] MEDS: LORazepam 2 MG TABLET PO PRN (14:24)
[2022-04-12 20:38] VITALS: BP 118/78
[2022-04-12] MEDS: OLANZapine 7.5 MG TABLET PO SCH (20:40)
[2022-04-12] MEDS: ZOLPIDEM TARTRATE 10 MG TABLET PO PRN (21:59)
[2022-04-13 08:25] VITALS: BP 128/80
[2022-04-13] MEDS: OLANZapine 5 MG TABLET PO SCH (09:17)
[2022-04-13] MEDS: LISINOPRIL 10 MG TABLET PO SCH (09:17)
[2022-04-13] MEDS ORDERED: HydrOXYzine PAMOATE 50 MG CAPSULE PO PRN (09:30)
[2022-04-13] MEDS: OLANZapine 7.5 MG TABLET PO SCH (20:13)
[2022-04-13 20:23] VITALS: BP 115/80
[2022-04-13] MEDS: ZOLPIDEM TARTRATE 10 MG TABLET PO PRN (20:25)
[2022-04-14 04:47] VITALS: BP 121/86
[2022-04-14 08:34] VITALS: BP 115/60
[2022-04-14] MEDS: LISINOPRIL 10 MG TABLET PO SCH (08:35)
[2022-04-14] MEDS: OLANZapine 5 MG TABLET PO SCH (08:35)
[2022-04-14] MEDS ORDERED: OLAN5TAB52 PO (14:19)
[2022-04-14] MEDS ORDERED: OLAN7.5T22 PO (14:19)
[2022-04-14] MEDS ORDERED: LISI-893 PO (16:17)
== END 2022-04-14 18:55 | disposition home or self-care (01) | DRG 750 ==
LOC: B3A 12:50
PROVIDERS: ADMIT Psychiatry & Neurology Child & Adolescent Psychiatry; ATTEND Psychiatry & Neurology Psychiatry
DX: F25.1 Schizoaffective disorder, depressive type (principal); R45.851 Suicidal ideations; Z91.14 Patient's other noncompliance with medication regimen; E78.5 Hyperlipidemia, unspecified; F41.9 Anxiety disorder, unspecified; I10 Essential (primary) hypertension; Z20.822 Contact with and (suspected) exposure to COVID-19; F12.10 Cannabis abuse, uncomplicated; J45.909 Unspecified asthma, uncomplicated; Z59.00 Homelessness unspecified; Z91.51 Personal history of suicidal behavior; Z79.899 Other long term (current) drug therapy; Z88.8 Allergy status to other drugs, medicaments and biological substances
CPT/HCPCS: 80053; 80061; 83036; 84439; 84443; 85025; 87081; Q9967

== ENCOUNTER 2022-05-01 04:52 | Inpatient (IN) | payer MEDICAID ==
[~2022-05-01] VITALS: Ht 172.7 cm; Wt 79.4 kg
[~2022-05-01 04:52] MED LIST changes: +LISI-893 PO; -OLAN15TA2 PO
[2022-05-01] MEDS ORDERED: HALOPERIDOL 5 MG TABLET PO PRN (08:45)
[2022-05-01 11:57] VITALS: BP 134/92
[2022-05-01] MEDS: OLANZapine 5 MG TABLET PO SCH (12:46)
[2022-05-01] MEDS ORDERED: NICOTINE 14 MG/24 HOUR PATCH TD PRN (13:45)
[2022-05-01] MEDS ORDERED: PETROLATUM,WHITE 28 GM JELLY TP PRN (13:45)
[2022-05-01] MEDS ORDERED: ALBUTEROL SULFATE HFA 90 MCG/PUFF 8 GM INHALER IH PRN (13:45)
[2022-05-01] MEDS ORDERED: DOCUSATE SODIUM 100 MG CAPSULE PO PRN (13:45)
[2022-05-01] MEDS ORDERED: MAGNESIUM HYDROXIDE SUSPENSION 30 ML UDCUP PO PRN (13:45)
[2022-05-01] MEDS ORDERED: CloNIDine HCL 0.1 MG TABLET PO PRN (13:45)
[2022-05-01] MEDS ORDERED: IBUPROFEN 400 MG TABLET PO PRN (13:45)
[2022-05-01] MEDS ORDERED: GuaiFENesin/D-METHORPHAN [SUGAR-FREE] 200-20MG/10 ML SYRUP UDCUP PO PRN (13:45)
[2022-05-01] MEDS ORDERED: MAG HYDROX/AL HYDROX/SIMETH ES 30 ML SUSPENSION UDCUP PO PRN (13:45)
[2022-05-01] MEDS ORDERED: LOPERAMIDE HCL 2 MG CAPSULE PO PRN (13:45)
[2022-05-01] MEDS ORDERED: ACETAMINOPHEN 325 MG TABLET PO PRN (13:45)
[2022-05-01] MEDS ORDERED: ONDANSETRON HCL 4 MG TABLET PO PRN (13:45)
[2022-05-01] MEDS: OLANZapine 7.5 MG TABLET PO SCH (21:32)
[2022-05-01 22:45] VITALS: BP 131/89
[2022-05-02 07:13] LABS: BASOPHILS % (AUTO) 0.5 % (0.0-2.0); EOSINOPHILS % (AUTO) 2.8 % (1.0-6.0); HEMATOCRIT 40.4 % (41-53); HEMOGLOBIN 13.1 g/dL (13.5-17.5); LYMPHOCYTES # (AUTO) 1.2 K/uL (1.0-4.8); LYMPHOCYTES % (AUTO) 33.4 % (22.0-44.0); MEAN CORPUSCULAR HEMOGLOBIN 25.6 pg (26.0-34.0); MEAN CORPUSCULAR HGB CONC 32.4 G/dL (31.0-37.0); MEAN CORPUSCULAR VOLUME 79 fL (80-100); MONOCYTES # (AUTO) 0.3 K/uL (0.1-1.0); NEUTROPHILS # (AUTO) 1.9 K/uL (1.8-7.7); NEUTROPHILS % (AUTO) 54.3 % (40.0-70.0); PLATELET COUNT (AUTO) 240 K/uL (150-450); RED BLOOD CELL COUNT(AUTO) 5.12 MIL/uL (4.50-5.90); RED CELL DISTRIBUTION WIDTH 21.5 % (11.5-14.5)
[2022-05-02 07:24] LABS: HEMOGLOBIN A1C 5.5 % (3.8-5.6)
[2022-05-02 07:46] LABS: ALANINE AMINOTRANSFERASE 48 U/L (12-78); ALBUMIN 3.3 g/dL (3.4-5.0); ALKALINE PHOSPHATASE 118 U/L (46-116); ANION GAP 11 mmol/L (8-16); ASPARTATE AMINOTRANSFERASE 42 U/L (15-37); BILIRUBIN,TOTAL 0.8 mg/dL (0.1-1.0); CALCIUM, TOTAL 9.3 mg/dL (8.8-10.5); CARBON DIOXIDE 26 mmol/L (22-29); CHLORIDE 100 mmol/L (98-107); CHOL/HDL RATIO 2.3 (4.2-7.3); CHOLESTEROL 225 mg/dL (131-200); CREATININE 0.95 mg/dL (0.60-1.30); FREE T4 (FREE THYROXINE) 1.04 ng/dL (0.76-1.46); GLUCOSE,RANDOM 65 mg/dL (70-110); HDL CHOLESTEROL 97 mg/dL (40-60); LDL CHOL (CALC.) 114 mg/dL (0-130); POTASSIUM 3.9 mmol/L (3.5-5.1); SODIUM SERUM 137 mmol/L (136-145); THYROID STIMULATING HORMONE 0.89 uIU/mL (0.36-3.74); TOTAL PROTEIN, SERUM 6.9 g/dL (6.4-8.2); TRIGLYCERIDES 68 mg/dL (15-150); UREA NITROGEN, BLOOD 12 mg/dL (7-18)
[2022-05-02 07:47] LABS: GLOMERULAR FILTR. RATE CALC > 60 mL/min (>60)
[2022-05-02] MEDS: LISINOPRIL 10 MG TABLET PO SCH (08:02)
[2022-05-02] MEDS: OLANZapine 5 MG TABLET PO SCH (08:02)
[2022-05-02] MEDS: LORazepam 2 MG TABLET PO PRN ×2 (08:02→20:20)
[2022-05-02 08:06] VITALS: BP 128/88
[2022-05-02 08:10] LABS: AMPHET/METH SCREEN,URINE NEGATIVE (NEGATIVE); BARBITURATE SCREEN, URINE NEGATIVE (NEGATIVE); BENZODIAZEPINES SCREEN,URINE NEGATIVE (NEGATIVE); CANNABINOID SCREEN,URINE POSITIVE (NEGATIVE); COCAINE SCREEN,URINE NEGATIVE (NEGATIVE); METHADONE SCREEN, URINE NEGATIVE (NEGATIVE); OPIATE SCREEN,URINE NEGATIVE (NEGATIVE)
[2022-05-02 08:11] LABS: PHENCYCLIDINE SCREEN,URINE NEGATIVE (NEGATIVE)
[2022-05-02 08:14] LABS: APPEARANCE,URINE TURBID (CLEAR); BILIRUBIN,URINE NEGATIVE (NEGATIVE); GLUCOSE, URINE (UA) NEGATIVE (NEGATIVE); KETONES,URINE TRACE mg/dL (NEGATIVE); LEUKOCYTE ESTERASE ,URINE NEGATIVE (NEGATIVE); NITRATE,URINE NEGATIVE (NEGATIVE); OCCULT BLOOD,URINE NEGATIVE (NEGATIVE); PH,URINE 5.5 (5.0-8.0); PROTEIN,URINE TRACE mg/dL (NEGATIVE); SPECIFIC GRAVITIY, URINE 1.021 (1.003-1.030); UROBILINOGEN,URINE <=1.0 mg/dL (<=1.0)
[2022-05-02 08:34] LABS: AMORPHOUS SEDIMENT,UR Many /LPF (None Seen); BACTERIA,URINE None Seen /HPF (None Seen); RBC,URINE None Seen /HPF (0-2); WBC,URINE None Seen /HPF (0-5)
[2022-05-02 20:09] VITALS: BP 100/66
[2022-05-02] MEDS: ZOLPIDEM TARTRATE 10 MG TABLET PO PRN (20:20)
[2022-05-02] MEDS: OLANZapine 7.5 MG TABLET PO SCH (20:20)
[2022-05-03] MEDS: LISINOPRIL 10 MG TABLET PO SCH (08:01)
[2022-05-03] MEDS: OLANZapine 5 MG TABLET PO SCH (08:01)
[2022-05-03] MEDS: LORazepam 2 MG TABLET PO PRN (08:01)
[2022-05-03 09:36] VITALS: BP 110/60
[2022-05-03 20:09] VITALS: BP 116/81
[2022-05-03] MEDS: OLANZapine 7.5 MG TABLET PO SCH (20:11)
[2022-05-04] MEDS: OLANZapine 5 MG TABLET PO SCH (08:10)
[2022-05-04] MEDS: LORazepam 2 MG TABLET PO PRN (08:10)
[2022-05-04] MEDS: LISINOPRIL 10 MG TABLET PO SCH (08:10)
[2022-05-04 09:49] VITALS: BP 97/61
[2022-05-04 20:00] VITALS: BP 106/53
[2022-05-04] MEDS: OLANZapine 7.5 MG TABLET PO SCH (20:01)
[2022-05-04] MEDS: ZOLPIDEM TARTRATE 10 MG TABLET PO PRN (20:01)
[2022-05-05] MEDS: LISINOPRIL 10 MG TABLET PO SCH (08:05)
[2022-05-05] MEDS: OLANZapine 5 MG TABLET PO SCH (08:05)
[2022-05-05 09:11] VITALS: BP 120/64
[2022-05-05 20:04] VITALS: BP 108/64
[2022-05-05] MEDS: OLANZapine 7.5 MG TABLET PO SCH (20:07)
[2022-05-06] MEDS: OLANZapine 5 MG TABLET PO SCH (08:04)
[2022-05-06] MEDS: LISINOPRIL 10 MG TABLET PO SCH (08:04)
[2022-05-06 08:15] VITALS: BP 117/74
[2022-05-06 20:07] VITALS: BP 117/70
[2022-05-06] MEDS: OLANZapine 7.5 MG TABLET PO SCH (20:25)
[2022-05-07] MEDS: OLANZapine 5 MG TABLET PO SCH (09:00)
[2022-05-07] MEDS: LISINOPRIL 10 MG TABLET PO SCH (09:00)
[2022-05-07 20:06] VITALS: BP 121/78
[2022-05-07] MEDS: OLANZapine 7.5 MG TABLET PO SCH (20:11)
[2022-05-08] MEDS: LISINOPRIL 10 MG TABLET PO SCH (08:00)
[2022-05-08] MEDS: OLANZapine 5 MG TABLET PO SCH (08:00)
[2022-05-08 08:02] VITALS: BP 118/63
[2022-05-08] MEDS: OLANZapine 7.5 MG TABLET PO SCH (20:25)
[2022-05-08 20:29] VITALS: BP 116/67
[2022-05-09] MEDS: LISINOPRIL 10 MG TABLET PO SCH (08:03)
[2022-05-09] MEDS: OLANZapine 5 MG TABLET PO SCH (08:03)
[2022-05-09 08:10] VITALS: BP 115/55
[2022-05-09 20:05] VITALS: BP 106/79
[2022-05-09] MEDS: OLANZapine 7.5 MG TABLET PO SCH (20:15)
[2022-05-10] MEDS: OLANZapine 5 MG TABLET PO SCH (08:05)
[2022-05-10] MEDS: LISINOPRIL 10 MG TABLET PO SCH (08:05)
[2022-05-10 08:53] VITALS: BP 116/76
[2022-05-10 20:05] VITALS: BP 106/62
[2022-05-10] MEDS: OLANZapine 7.5 MG TABLET PO SCH (20:44)
[2022-05-11] MEDS: OLANZapine 5 MG TABLET PO SCH (08:17)
[2022-05-11] MEDS: LISINOPRIL 10 MG TABLET PO SCH (08:17)
[2022-05-11 13:14] VITALS: BP 105/74
[2022-05-11 20:00] VITALS: BP 110/68
[2022-05-11] MEDS: OLANZapine 7.5 MG TABLET PO SCH (20:20)
[2022-05-11 20:46] LABS: GLUCOMETER DEV NAME(LOC) POC.BV
[2022-05-12] MEDS: OLANZapine 5 MG TABLET PO SCH (08:48)
[2022-05-12] MEDS: LISINOPRIL 10 MG TABLET PO SCH (08:49)
[2022-05-12 13:45] VITALS: BP 135/77
[2022-05-12] MEDS: OLANZapine 7.5 MG TABLET PO SCH (20:16)
[2022-05-13 01:08] VITALS: BP 108/76
[2022-05-13 08:08] VITALS: BP 128/80
[2022-05-13] MEDS ORDERED: LISI-893 PO (08:23)
[2022-05-13] MEDS ORDERED: OLAN7.5T22 PO (08:23)
[2022-05-13] MEDS ORDERED: OLAN5TAB52 PO (08:23)
[2022-05-13] MEDS: LISINOPRIL 10 MG TABLET PO SCH (08:36)
[2022-05-13] MEDS: OLANZapine 5 MG TABLET PO SCH (08:36)
== END 2022-05-13 11:26 | disposition home or self-care (01) | DRG 750 ==
LOC: B3A 11:00
PROVIDERS: ADMIT Psychiatry & Neurology Psychiatry; ATTEND Psychiatry & Neurology Psychiatry
DX: F25.1 Schizoaffective disorder, depressive type (principal); R45.851 Suicidal ideations; F12.10 Cannabis abuse, uncomplicated; I10 Essential (primary) hypertension; D64.9 Anemia, unspecified; J45.909 Unspecified asthma, uncomplicated; Z59.00 Homelessness unspecified; Z79.899 Other long term (current) drug therapy; Z91.51 Personal history of suicidal behavior; Z88.8 Allergy status to other drugs, medicaments and biological substances
CPT/HCPCS: 80053; 80061; 80307; 81001; 83036; 84436; 84439; 84443; 85025; G0480

== ENCOUNTER 2022-05-28 14:55 | Inpatient (IN) | payer MEDICAID ==
[~2022-05-28] VITALS: Ht 172.7 cm; Wt 83.3 kg
[2022-05-28] MEDS ORDERED: OLANZapine 5 MG RAPDIS TABLET PO PRN (19:15)
[2022-05-28] MEDS ORDERED: LORazepam 2 MG TABLET PO PRN (19:15)
[2022-05-28] MEDS ORDERED: INFLUENZA VIRUS VACCINE QVS 2022-23 (6MO+)/PF 60 MCG/0.5 ML SYRINGE IM. ONE (19:45)
[2022-05-28] MEDS ORDERED: PNEUMOCOCCAL VACCINE POLYVALENT 0.5 ML VIAL [PPSV23] IM. ONE (19:45)
[2022-05-28 20:10] VITALS: BP 142/84
[2022-05-28] MEDS: ZOLPIDEM TARTRATE 10 MG TABLET PO PRN (20:56)
[2022-05-28 21:12] VITALS: BP 141/81
[2022-05-29 07:33] LABS: BASOPHILS % (AUTO) 0.4 % (0.0-2.0); EOSINOPHILS % (AUTO) 2.6 % (1.0-6.0); HEMOGLOBIN 12.4 g/dL (13.5-17.5); LYMPHOCYTES # (AUTO) 1.3 K/uL (1.0-4.8); LYMPHOCYTES % (AUTO) 34.5 % (22.0-44.0); MEAN CORPUSCULAR HEMOGLOBIN 26.3 pg (26.0-34.0); MEAN CORPUSCULAR HGB CONC 31.8 G/dL (31.0-37.0); MEAN CORPUSCULAR VOLUME 83 fL (80-100); MONOCYTES # (AUTO) 0.3 K/uL (0.1-1.0); MONOCYTES % (AUTO) 9.2 % (2.0-9.0); NEUTROPHILS % (AUTO) 53.3 % (40.0-70.0); PLATELET COUNT (AUTO) 216 K/uL (150-450); RED BLOOD CELL COUNT(AUTO) 4.71 MIL/uL (4.50-5.90); RED CELL DISTRIBUTION WIDTH 18.7 % (11.5-14.5)
[2022-05-29 07:44] LABS: HEMOGLOBIN A1C 5.4 % (3.8-5.6)
[2022-05-29 07:59] LABS: ALANINE AMINOTRANSFERASE 45 U/L (12-78); ALBUMIN 3.1 g/dL (3.4-5.0); ALKALINE PHOSPHATASE 86 U/L (46-116); ANION GAP 6 mmol/L (8-16); ASPARTATE AMINOTRANSFERASE 47 U/L (15-37); BILIRUBIN,TOTAL 0.4 mg/dL (0.1-1.0); CALCIUM, TOTAL 8.8 mg/dL (8.8-10.5); CARBON DIOXIDE 28 mmol/L (22-29); CHLORIDE 104 mmol/L (98-107); CHOL/HDL RATIO 2.4 (4.2-7.3); CHOLESTEROL 184 mg/dL (131-200); CREATININE 1.03 mg/dL (0.60-1.30); FREE T4 (FREE THYROXINE) 1.04 ng/dL (0.76-1.46); GLUCOSE,RANDOM 119 mg/dL (70-110); HDL CHOLESTEROL 77 mg/dL (40-60); LDL CHOL (CALC.) 91 mg/dL (0-130); POTASSIUM 3.7 mmol/L (3.5-5.1); SODIUM SERUM 138 mmol/L (136-145); THYROID STIMULATING HORMONE 1.46 uIU/mL (0.36-3.74); TOTAL PROTEIN, SERUM 6.4 g/dL (6.4-8.2); TRIGLYCERIDES 80 mg/dL (15-150); UREA NITROGEN, BLOOD 10 mg/dL (7-18)
[2022-05-29 08:01] VITALS: BP 120/72
[2022-05-29 08:03] LABS: GLOMERULAR FILTR. RATE CALC > 60 mL/min (>60)
[2022-05-29] MEDS: BACITRACIN 28 GM OINTMENT TP SCH ×2 (08:04→17:02)
[2022-05-29] MEDS ORDERED: ONDANSETRON HCL 4 MG TABLET PO PRN (09:30)
[2022-05-29] MEDS ORDERED: IBUPROFEN 400 MG TABLET PO PRN (09:30)
[2022-05-29] MEDS ORDERED: NICOTINE 14 MG/24 HOUR PATCH TD PRN (09:30)
[2022-05-29] MEDS ORDERED: LOPERAMIDE HCL 2 MG CAPSULE PO PRN (09:30)
[2022-05-29] MEDS ORDERED: PETROLATUM,WHITE 28 GM JELLY TP PRN (09:30)
[2022-05-29] MEDS ORDERED: ACETAMINOPHEN 325 MG TABLET PO PRN (09:30)
[2022-05-29] MEDS ORDERED: ALBUTEROL SULFATE HFA 90 MCG/PUFF 8 GM INHALER IH PRN (09:30)
[2022-05-29] MEDS ORDERED: MAGNESIUM HYDROXIDE SUSPENSION 30 ML UDCUP PO PRN (09:30)
[2022-05-29] MEDS ORDERED: CloNIDine HCL 0.1 MG TABLET PO PRN (09:30)
[2022-05-29] MEDS ORDERED: DOCUSATE SODIUM 100 MG CAPSULE PO PRN (09:30)
[2022-05-29] MEDS ORDERED: GuaiFENesin/D-METHORPHAN [SUGAR-FREE] 200-20MG/10 ML SYRUP UDCUP PO PRN (09:30)
[2022-05-29] MEDS: OLANZapine 5 MG TABLET PO SCH (10:59)
[2022-05-29] MEDS: SERTRALINE HCL 50 MG TABLET PO SCH (10:59)
[2022-05-29 20:01] VITALS: BP 116/67
[2022-05-29] MEDS: OLANZapine 7.5 MG TABLET PO SCH (20:06)
[2022-05-30 08:00] VITALS: BP 122/83
[2022-05-30] MEDS: SERTRALINE HCL 50 MG TABLET PO SCH (08:00)
[2022-05-30] MEDS: LISINOPRIL 10 MG TABLET PO SCH (08:00)
[2022-05-30] MEDS: BACITRACIN 28 GM OINTMENT TP SCH ×2 (08:00→16:26)
[2022-05-30] MEDS: OLANZapine 5 MG TABLET PO SCH (08:00)
[2022-05-30] MEDS: OLANZapine 7.5 MG TABLET PO SCH ×2 (19:51→20:06)
[2022-05-30 21:30] VITALS: BP 123/81
[2022-05-31] MEDS: SERTRALINE HCL 50 MG TABLET PO SCH (08:15)
[2022-05-31] MEDS: BACITRACIN 28 GM OINTMENT TP SCH ×2 (08:15→16:11)
[2022-05-31] MEDS: OLANZapine 5 MG TABLET PO SCH (08:15)
[2022-05-31] MEDS: LISINOPRIL 10 MG TABLET PO SCH (08:15)
[2022-05-31 08:52] VITALS: BP 122/65
[2022-05-31] MEDS: OLANZapine 7.5 MG TABLET PO SCH (20:04)
[2022-05-31 21:01] VITALS: BP 127/83
[2022-06-01] MEDS: SERTRALINE HCL 50 MG TABLET PO SCH (08:00)
[2022-06-01] MEDS: LISINOPRIL 10 MG TABLET PO SCH (08:00)
[2022-06-01] MEDS: OLANZapine 5 MG TABLET PO SCH (08:00)
[2022-06-01] MEDS: BACITRACIN 28 GM OINTMENT TP SCH ×2 (08:01→17:01)
[2022-06-01 08:07] VITALS: BP 124/72
[2022-06-01 20:06] VITALS: BP 140/76
[2022-06-01] MEDS: OLANZapine 7.5 MG TABLET PO SCH (20:08)
[2022-06-01] MEDS: ZOLPIDEM TARTRATE 10 MG TABLET PO PRN (22:46)
[2022-06-02] MEDS: BACITRACIN 28 GM OINTMENT TP SCH ×2 (08:02→17:02)
[2022-06-02] MEDS: OLANZapine 5 MG TABLET PO SCH (08:02)
[2022-06-02] MEDS: LISINOPRIL 10 MG TABLET PO SCH (08:02)
[2022-06-02] MEDS: SERTRALINE HCL 50 MG TABLET PO SCH (08:02)
[2022-06-02 08:06] VITALS: BP 109/64
[2022-06-02] MEDS: OLANZapine 7.5 MG TABLET PO SCH (20:15)
[2022-06-02 20:18] VITALS: BP 137/82
[2022-06-02] MEDS: ZOLPIDEM TARTRATE 10 MG TABLET PO PRN (22:01)
[2022-06-03 08:12] VITALS: BP 113/60
[2022-06-03] MEDS: OLANZapine 5 MG TABLET PO SCH (08:17)
[2022-06-03] MEDS: LISINOPRIL 10 MG TABLET PO SCH (08:17)
[2022-06-03] MEDS: SERTRALINE HCL 50 MG TABLET PO SCH (08:17)
[2022-06-03] MEDS: BACITRACIN 28 GM OINTMENT TP SCH ×2 (08:17→16:57)
[2022-06-03 20:07] VITALS: BP 120/80
[2022-06-03] MEDS: OLANZapine 7.5 MG TABLET PO SCH (20:24)
[2022-06-04] MEDS: SERTRALINE HCL 50 MG TABLET PO SCH (08:08)
[2022-06-04] MEDS: BACITRACIN 28 GM OINTMENT TP SCH ×2 (08:08→17:04)
[2022-06-04] MEDS: LISINOPRIL 10 MG TABLET PO SCH (08:08)
[2022-06-04] MEDS: OLANZapine 5 MG TABLET PO SCH (08:08)
[2022-06-04 09:21] VITALS: BP 118/70
[2022-06-04 16:26] LABS: GLUCOMETER DEV NAME(LOC) POC.BV
[2022-06-04 20:08] VITALS: BP 143/82
[2022-06-04] MEDS: OLANZapine 7.5 MG TABLET PO SCH (20:29)
[2022-06-04] MEDS: ZOLPIDEM TARTRATE 10 MG TABLET PO PRN (21:38)
[2022-06-05] MEDS: SERTRALINE HCL 50 MG TABLET PO SCH (08:11)
[2022-06-05] MEDS: OLANZapine 5 MG TABLET PO SCH (08:11)
[2022-06-05] MEDS: LISINOPRIL 10 MG TABLET PO SCH (08:11)
[2022-06-05] MEDS: BACITRACIN 28 GM OINTMENT TP SCH ×2 (08:11→17:45)
[2022-06-05 08:27] VITALS: BP 124/70
[2022-06-05 20:31] VITALS: BP 139/88
[2022-06-05] MEDS: OLANZapine 7.5 MG TABLET PO SCH (21:37)
[2022-06-06] MEDS: BACITRACIN 28 GM OINTMENT TP SCH ×2 (08:17→17:11)
[2022-06-06] MEDS: OLANZapine 5 MG TABLET PO SCH (08:17)
[2022-06-06] MEDS: SERTRALINE HCL 50 MG TABLET PO SCH (08:17)
[2022-06-06] MEDS: LISINOPRIL 10 MG TABLET PO SCH (08:17)
[2022-06-06 08:37] VITALS: BP 122/78
[2022-06-06 20:05] VITALS: BP 118/78
[2022-06-06] MEDS: OLANZapine 7.5 MG TABLET PO SCH (20:07)
[2022-06-06] MEDS: ZOLPIDEM TARTRATE 10 MG TABLET PO PRN (22:12)
[2022-06-07 08:08] VITALS: BP 102/61
[2022-06-07] MEDS: BACITRACIN 28 GM OINTMENT TP SCH ×2 (09:00→17:03)
[2022-06-07] MEDS: SERTRALINE HCL 50 MG TABLET PO SCH (09:43)
[2022-06-07] MEDS: LISINOPRIL 10 MG TABLET PO SCH (09:43)
[2022-06-07] MEDS: OLANZapine 5 MG TABLET PO SCH (09:43)
[2022-06-07 20:00] VITALS: BP 120/76
[2022-06-07] MEDS: OLANZapine 7.5 MG TABLET PO SCH (20:18)
[2022-06-08] MEDS: OLANZapine 5 MG TABLET PO SCH (08:10)
[2022-06-08] MEDS: SERTRALINE HCL 50 MG TABLET PO SCH (08:11)
[2022-06-08] MEDS: LISINOPRIL 10 MG TABLET PO SCH (08:11)
[2022-06-08] MEDS: BACITRACIN 28 GM OINTMENT TP SCH ×2 (08:11→16:21)
[2022-06-08 08:28] VITALS: BP 141/77
[2022-06-08 20:06] VITALS: BP 136/82
[2022-06-08] MEDS: OLANZapine 7.5 MG TABLET PO SCH (20:08)
[2022-06-08] MEDS: ZOLPIDEM TARTRATE 10 MG TABLET PO PRN (22:09)
[2022-06-09] MEDS: LISINOPRIL 10 MG TABLET PO SCH (08:51)
[2022-06-09] MEDS: SERTRALINE HCL 50 MG TABLET PO SCH (08:51)
[2022-06-09] MEDS: OLANZapine 5 MG TABLET PO SCH (08:51)
[2022-06-09] MEDS: BACITRACIN 28 GM OINTMENT TP SCH ×2 (08:51→17:03)
[2022-06-09 09:40] VITALS: BP 121/76
[2022-06-09 20:06] VITALS: BP 121/77
[2022-06-09] MEDS: OLANZapine 7.5 MG TABLET PO SCH (20:17)
[2022-06-10 08:09] VITALS: BP 107/61
[2022-06-10] MEDS: OLANZapine 5 MG TABLET PO SCH (08:19)
[2022-06-10] MEDS: LISINOPRIL 10 MG TABLET PO SCH (08:19)
[2022-06-10] MEDS: SERTRALINE HCL 50 MG TABLET PO SCH (08:19)
[2022-06-10] MEDS: BACITRACIN 28 GM OINTMENT TP SCH ×2 (09:15→18:24)
[2022-06-10] MEDS: MAG HYDROX/AL HYDROX/SIMETH ES 30 ML SUSPENSION UDCUP PO PRN (09:35)
[2022-06-10] MEDS: OLANZapine 7.5 MG TABLET PO SCH (20:21)
[2022-06-10 20:22] VITALS: BP 107/61
[2022-06-11 08:07] VITALS: BP 120/64
[2022-06-11] MEDS: BACITRACIN 28 GM OINTMENT TP SCH ×2 (08:12→16:19)
[2022-06-11] MEDS: SERTRALINE HCL 50 MG TABLET PO SCH (08:12)
[2022-06-11] MEDS: LISINOPRIL 10 MG TABLET PO SCH (08:12)
[2022-06-11] MEDS: OLANZapine 5 MG TABLET PO SCH (08:12)
[2022-06-11] MEDS: MAG HYDROX/AL HYDROX/SIMETH ES 30 ML SUSPENSION UDCUP PO PRN (09:23)
[2022-06-11 10:26] LABS: GLUCOMETER DEV NAME(LOC) POC.BV
[2022-06-11] MEDS: OLANZapine 7.5 MG TABLET PO SCH (20:11)
[2022-06-11 22:33] VITALS: BP 123/69
[2022-06-12] MEDS: BACITRACIN 28 GM OINTMENT TP SCH ×2 (08:12→16:38)
[2022-06-12] MEDS: SERTRALINE HCL 50 MG TABLET PO SCH (08:13)
[2022-06-12] MEDS: OLANZapine 5 MG TABLET PO SCH (08:13)
[2022-06-12] MEDS: LISINOPRIL 10 MG TABLET PO SCH (08:13)
[2022-06-12 09:11] VITALS: BP 107/73
[2022-06-12 19:36] VITALS: BP 123/76
[2022-06-12] MEDS: OLANZapine 7.5 MG TABLET PO SCH (20:27)
[2022-06-13 08:02] VITALS: BP 139/91
[2022-06-13] MEDS: SERTRALINE HCL 50 MG TABLET PO SCH (08:03)
[2022-06-13] MEDS: BACITRACIN 28 GM OINTMENT TP SCH ×2 (08:03→17:53)
[2022-06-13] MEDS: LISINOPRIL 10 MG TABLET PO SCH (08:03)
[2022-06-13] MEDS: OLANZapine 5 MG TABLET PO SCH (08:03)
[2022-06-13 20:12] VITALS: BP 112/74
[2022-06-13] MEDS: OLANZapine 7.5 MG TABLET PO SCH (20:34)
[2022-06-14] MEDS: SERTRALINE HCL 50 MG TABLET PO SCH (08:15)
[2022-06-14] MEDS: BACITRACIN 28 GM OINTMENT TP SCH ×2 (08:15→17:28)
[2022-06-14] MEDS: LISINOPRIL 10 MG TABLET PO SCH (08:15)
[2022-06-14] MEDS: OLANZapine 5 MG TABLET PO SCH (08:15)
[2022-06-14 08:21] VITALS: BP 111/71
[2022-06-14] MEDS: OLANZapine 7.5 MG TABLET PO SCH (22:09)
[2022-06-15 00:21] VITALS: BP 120/74
[2022-06-15] MEDS: BACITRACIN 28 GM OINTMENT TP SCH (08:01)
[2022-06-15] MEDS: SERTRALINE HCL 50 MG TABLET PO SCH (08:01)
[2022-06-15] MEDS: LISINOPRIL 10 MG TABLET PO SCH (08:01)
[2022-06-15] MEDS: OLANZapine 5 MG TABLET PO SCH (08:01)
[2022-06-15 08:25] VITALS: BP 100/63
[2022-06-15] MEDS: OLANZapine 7.5 MG TABLET PO SCH (20:15)
[2022-06-15 20:32] VITALS: BP 127/82
[2022-06-16] MEDS: SERTRALINE HCL 50 MG TABLET PO SCH (08:01)
[2022-06-16] MEDS: OLANZapine 5 MG TABLET PO SCH (08:02)
[2022-06-16] MEDS: LISINOPRIL 10 MG TABLET PO SCH (08:02)
[2022-06-16 08:04] VITALS: BP 132/84
[2022-06-16] MEDS ORDERED: SERT-158 PO (10:10)
[2022-06-18] MEDS ORDERED: SERT-158 PO (06:03)
[2022-06-18] MEDS ORDERED: OLAN5TAB52 PO (06:03)
[2022-06-18] MEDS ORDERED: OLAN7.5T22 PO (06:03)
== END 2022-06-16 17:38 | disposition home or self-care (01) | DRG 750 ==
LOC: B3A 19:09 → UNDOADMIN 19:22 → B3A 19:22
PROVIDERS: ADMIT Psychiatry & Neurology Psychiatry; ATTEND Psychiatry & Neurology Psychiatry
DX: F25.1 Schizoaffective disorder, depressive type (principal); R45.851 Suicidal ideations; D64.9 Anemia, unspecified; F10.20 Alcohol dependence, uncomplicated; F12.10 Cannabis abuse, uncomplicated; I10 Essential (primary) hypertension; D72.819 Decreased white blood cell count, unspecified; Z20.822 Contact with and (suspected) exposure to COVID-19; E78.5 Hyperlipidemia, unspecified; J45.909 Unspecified asthma, uncomplicated; F19.10 Other psychoactive substance abuse, uncomplicated; R73.9 Hyperglycemia, unspecified; Z59.00 Homelessness unspecified; Z91.51 Personal history of suicidal behavior; Z88.8 Allergy status to other drugs, medicaments and biological substances
CPT/HCPCS: 80053; 80061; 83036; 84439; 84443; 85025

== ENCOUNTER 2022-06-19 18:12 | Emergency (ER) | payer MEDICAID ==
[~2022-06-19 18:12] MED LIST changes: +SERT-158 PO
== END 2022-06-19 19:45 | disposition left against medical advice (07) ==
LOC: EMS 18:12
DX: Z53.21 Procedure and treatment not carried out due to patient leaving prior to being seen by health care provider (principal)

== ENCOUNTER 2022-07-01 07:32 | Emergency (ER) | payer MEDICAID ==
[~2022-07-01] VITALS: Ht 180.3 cm; Wt 81.8 kg
[2022-07-01 08:07] LABS: COVID AG,FIA SOURCE NASOPHARYNGEAL
[2022-07-01 08:15] LABS: BASOPHILS % (AUTO) 0.7 % (0.0-2.0); EOSINOPHILS % (AUTO) 0.8 % (1.0-6.0); HEMATOCRIT 42.7 % (41-53); HEMOGLOBIN 14.2 g/dL (13.5-17.5); LYMPHOCYTES # (AUTO) 1.2 K/uL (1.0-4.8); LYMPHOCYTES % (AUTO) 17.7 % (22.0-44.0); MEAN CORPUSCULAR HEMOGLOBIN 27.2 pg (26.0-34.0); MEAN CORPUSCULAR HGB CONC 33.1 G/dL (31.0-37.0); MEAN CORPUSCULAR VOLUME 82 fL (80-100); MONOCYTES # (AUTO) 0.9 K/uL (0.1-1.0); MONOCYTES % (AUTO) 14.2 % (2.0-9.0); NEUTROPHILS # (AUTO) 4.3 K/uL (1.8-7.7); NEUTROPHILS % (AUTO) 66.6 % (40.0-70.0); PLATELET COUNT (AUTO) 253 K/uL (150-450); RED BLOOD CELL COUNT(AUTO) 5.21 MIL/uL (4.50-5.90); RED CELL DISTRIBUTION WIDTH 17.3 % (11.5-14.5)
[2022-07-01 08:29] LABS: ANION GAP 5 mmol/L (8-16); CALCIUM, TOTAL 9.6 mg/dL (8.8-10.5); CARBON DIOXIDE 31 mmol/L (22-29); CHLORIDE 101 mmol/L (98-107); CREATININE 1.19 mg/dL (0.60-1.30); GLOMERULAR FILTR. RATE CALC > 60 mL/min (>60); GLUCOSE,RANDOM 85 mg/dL (70-110); POTASSIUM 4.7 mmol/L (3.5-5.1); SODIUM SERUM 137 mmol/L (136-145); UREA NITROGEN, BLOOD 16 mg/dL (7-18)
[2022-07-01 08:35] LABS: ALANINE AMINOTRANSFERASE 40 U/L (12-78); ALBUMIN 4.2 g/dL (3.4-5.0); ALKALINE PHOSPHATASE 89 U/L (46-116); ASPARTATE AMINOTRANSFERASE 60 U/L (15-37); BILIRUBIN,TOTAL 0.6 mg/dL (0.1-1.0); TOTAL PROTEIN, SERUM 8.2 g/dL (6.4-8.2)
[2022-07-01 08:40] LABS: AMPHET/METH SCREEN,URINE POSITIVE (NEGATIVE); BARBITURATE SCREEN, URINE NEGATIVE (NEGATIVE); BENZODIAZEPINES SCREEN,URINE NEGATIVE (NEGATIVE); CANNABINOID SCREEN,URINE POSITIVE (NEGATIVE); COCAINE SCREEN,URINE NEGATIVE (NEGATIVE); METHADONE SCREEN, URINE NEGATIVE (NEGATIVE); OPIATE SCREEN,URINE NEGATIVE (NEGATIVE)
[2022-07-01 08:41] LABS: PHENCYCLIDINE SCREEN,URINE NEGATIVE (NEGATIVE)
[2022-07-01] MEDS ORDERED: OLANZapine 5 MG RAPDIS TABLET PO ONE (09:45)
[2022-07-01 11:45] VITALS: BP 132/78
[2022-07-02] MEDS ORDERED: OLAN15TA36 PO (10:41)
[2022-07-02] MEDS ORDERED: TRAZ-252 PO (10:41)
== END 2022-07-01 11:53 | disposition home or self-care (01) ==
LOC: EMS 07:34
DX: F25.1 Schizoaffective disorder, depressive type (principal); F10.20 Alcohol dependence, uncomplicated; F31.9 Bipolar disorder, unspecified; I10 Essential (primary) hypertension; F17.210 Nicotine dependence, cigarettes, uncomplicated; F12.90 Cannabis use, unspecified, uncomplicated; F15.90 Other stimulant use, unspecified, uncomplicated; Z20.822 Contact with and (suspected) exposure to COVID-19
CPT/HCPCS: 99284; 87426; 80053; 85025; 36415; 80307; G0480

== ENCOUNTER 2022-07-01 15:57 | Inpatient (IN) | payer MEDICAID ==
[~2022-07-01] VITALS: Ht 172.7 cm; Wt 80.7 kg
[2022-07-01] MEDS ORDERED: ZOLPIDEM TARTRATE 10 MG TABLET PO PRN (18:30)
[2022-07-01] MEDS ORDERED: PNEUMOCOCCAL VACCINE POLYVALENT 0.5 ML VIAL [PPSV23] IM. ONE (18:30)
[2022-07-01] MEDS ORDERED: INFLUENZA VIRUS VACCINE QVS 2022-23 (6MO+)/PF 60 MCG/0.5 ML SYRINGE IM. ONE (18:30)
[2022-07-01] MEDS ORDERED: OLANZapine 5 MG RAPDIS TABLET PO PRN (18:30)
[2022-07-01 20:16] VITALS: BP 119/74
[2022-07-02] MEDS ORDERED: TRAZ-252 PO (10:41)
[2022-07-02] MEDS ORDERED: OLAN15TA36 PO (10:41)
[2022-07-02] MEDS: LORazepam 2 MG TABLET PO PRN (11:27)
[2022-07-02] MEDS ORDERED: PETROLATUM,WHITE 28 GM JELLY TP PRN (14:45)
[2022-07-02] MEDS ORDERED: GuaiFENesin/D-METHORPHAN [SUGAR-FREE] 200-20MG/10 ML SYRUP UDCUP PO PRN (14:45)
[2022-07-02] MEDS ORDERED: IBUPROFEN 400 MG TABLET PO PRN (14:45)
[2022-07-02] MEDS ORDERED: ACETAMINOPHEN 325 MG TABLET PO PRN (14:45)
[2022-07-02] MEDS ORDERED: DOCUSATE SODIUM 100 MG CAPSULE PO PRN (14:45)
[2022-07-02] MEDS ORDERED: ALBUTEROL SULFATE HFA 90 MCG/PUFF 8 GM INHALER IH PRN (14:45)
[2022-07-02] MEDS ORDERED: NICOTINE 14 MG/24 HOUR PATCH TD PRN (14:45)
[2022-07-02] MEDS ORDERED: ONDANSETRON HCL 4 MG TABLET PO PRN (14:45)
[2022-07-02] MEDS ORDERED: MAG HYDROX/AL HYDROX/SIMETH ES 30 ML SUSPENSION UDCUP PO PRN (14:45)
[2022-07-02] MEDS ORDERED: MAGNESIUM HYDROXIDE SUSPENSION 30 ML UDCUP PO PRN (14:45)
[2022-07-02] MEDS ORDERED: LOPERAMIDE HCL 2 MG CAPSULE PO PRN (14:45)
[2022-07-02] MEDS ORDERED: CloNIDine HCL 0.1 MG TABLET PO PRN (14:45)
[2022-07-02] MEDS: TraZODone HCL 50 MG TABLET PO SCH (20:24)
[2022-07-02] MEDS: OLANZapine 7.5 MG TABLET PO SCH (20:25)
[2022-07-02 20:31] VITALS: BP 110/64
[2022-07-03 07:50] LABS: BASOPHILS % (AUTO) 0.6 % (0.0-2.0); EOSINOPHILS % (AUTO) 1.7 % (1.0-6.0); HEMATOCRIT 38.9 % (41-53); HEMOGLOBIN 12.7 g/dL (13.5-17.5); LYMPHOCYTES # (AUTO) 1.3 K/uL (1.0-4.8); MEAN CORPUSCULAR HEMOGLOBIN 26.9 pg (26.0-34.0); MEAN CORPUSCULAR HGB CONC 32.5 G/dL (31.0-37.0); MEAN CORPUSCULAR VOLUME 83 fL (80-100); MONOCYTES # (AUTO) 0.4 K/uL (0.1-1.0); MONOCYTES % (AUTO) 12.4 % (2.0-9.0); NEUTROPHILS # (AUTO) 1.8 K/uL (1.8-7.7); NEUTROPHILS % (AUTO) 49.3 % (40.0-70.0); PLATELET COUNT (AUTO) 201 K/uL (150-450); RED BLOOD CELL COUNT(AUTO) 4.71 MIL/uL (4.50-5.90); RED CELL DISTRIBUTION WIDTH 16.5 % (11.5-14.5)
[2022-07-03 08:07] LABS: HEMOGLOBIN A1C 5.5 % (3.8-5.6)
[2022-07-03 08:31] LABS: ALANINE AMINOTRANSFERASE 32 U/L (12-78); ALBUMIN 3.2 g/dL (3.4-5.0); ALKALINE PHOSPHATASE 63 U/L (46-116); ANION GAP 5 mmol/L (8-16); ASPARTATE AMINOTRANSFERASE 29 U/L (15-37); BILIRUBIN,TOTAL 0.4 mg/dL (0.1-1.0); CALCIUM, TOTAL 9.1 mg/dL (8.8-10.5); CARBON DIOXIDE 29 mmol/L (22-29); CHLORIDE 104 mmol/L (98-107); CHOL/HDL RATIO 2.8 (4.2-7.3); CHOLESTEROL 199 mg/dL (131-200); CREATININE 1.05 mg/dL (0.60-1.30); FREE T4 (FREE THYROXINE) 0.87 ng/dL (0.76-1.46); GLUCOSE,RANDOM 80 mg/dL (70-110); HDL CHOLESTEROL 72 mg/dL (40-60); LDL CHOL (CALC.) 111 mg/dL (0-130); POTASSIUM 4.1 mmol/L (3.5-5.1); SODIUM SERUM 138 mmol/L (136-145); THYROID STIMULATING HORMONE 1.11 uIU/mL (0.36-3.74); TOTAL PROTEIN, SERUM 6.7 g/dL (6.4-8.2); TRIGLYCERIDES 81 mg/dL (15-150); UREA NITROGEN, BLOOD 13 mg/dL (7-18)
[2022-07-03 08:33] LABS: GLOMERULAR FILTR. RATE CALC > 60 mL/min (>60)
[2022-07-03 09:05] VITALS: BP 108/63
[2022-07-03] MEDS: LORazepam 2 MG TABLET PO PRN (16:30)
[2022-07-03] MEDS: TraZODone HCL 50 MG TABLET PO SCH (20:25)
[2022-07-03] MEDS: OLANZapine 7.5 MG TABLET PO SCH (20:25)
[2022-07-03 20:38] VITALS: BP 126/77
[2022-07-04 09:02] VITALS: BP 121/66
[2022-07-04] MEDS ORDERED: OLAN7.5T22 PO (11:23)
[2022-07-04] MEDS ORDERED: TRAZ-252 PO (11:23)
== END 2022-07-04 12:00 | disposition home or self-care (01) | DRG 750 ==
LOC: B3A 15:57
PROVIDERS: ADMIT Psychiatry & Neurology Psychiatry; ATTEND Psychiatry & Neurology Psychiatry
DX: F25.1 Schizoaffective disorder, depressive type (principal); R45.851 Suicidal ideations; F12.10 Cannabis abuse, uncomplicated; D72.819 Decreased white blood cell count, unspecified; E78.5 Hyperlipidemia, unspecified; I10 Essential (primary) hypertension; D64.9 Anemia, unspecified; J45.909 Unspecified asthma, uncomplicated; Z59.00 Homelessness unspecified; Z79.899 Other long term (current) drug therapy; Z91.51 Personal history of suicidal behavior; Z88.8 Allergy status to other drugs, medicaments and biological substances
CPT/HCPCS: 80053; 80061; 83036; 84439; 84443; 85025; 87081

== ENCOUNTER 2022-08-15 14:23 | Inpatient (IN) | payer MEDICAID ==
[~2022-08-15] VITALS: Ht 172.7 cm; Wt 81.3 kg
[~2022-08-15 14:23] MED LIST changes: -LISI-893 PO; -OLAN5TAB52 PO; -SERT-158 PO; +TRAZ-252 PO
[2022-08-15 15:42] LABS: BASOPHILS % (AUTO) 0.7 % (0.0-2.0); EOSINOPHILS % (AUTO) 0.8 % (1.0-6.0); HEMATOCRIT 40.3 % (41-53); LYMPHOCYTES # (AUTO) 1.3 K/uL (1.0-4.8); LYMPHOCYTES % (AUTO) 23.7 % (22.0-44.0); MEAN CORPUSCULAR HEMOGLOBIN 26.2 pg (26.0-34.0); MEAN CORPUSCULAR HGB CONC 32.2 G/dL (31.0-37.0); MEAN CORPUSCULAR VOLUME 82 fL (80-100); MONOCYTES # (AUTO) 0.6 K/uL (0.1-1.0); MONOCYTES % (AUTO) 10.7 % (2.0-9.0); NEUTROPHILS # (AUTO) 3.4 K/uL (1.8-7.7); NEUTROPHILS % (AUTO) 64.1 % (40.0-70.0); PLATELET COUNT (AUTO) 263 K/uL (150-450); RED BLOOD CELL COUNT(AUTO) 4.94 MIL/uL (4.50-5.90); RED CELL DISTRIBUTION WIDTH 16.8 % (11.5-14.5)
[2022-08-15] MEDS ORDERED: OLANZapine 5 MG TABLET PO ONE (15:45)
[2022-08-15 15:54] LABS: ANION GAP 11 mmol/L (8-16); CALCIUM, TOTAL 9.2 mg/dL (8.8-10.5); CARBON DIOXIDE 28 mmol/L (22-29); CHLORIDE 99 mmol/L (98-107); CREATININE 0.94 mg/dL (0.60-1.30); GLOMERULAR FILTR. RATE CALC > 60 mL/min (>60); GLUCOSE,RANDOM 78 mg/dL (70-110); POTASSIUM 4.1 mmol/L (3.5-5.1); SODIUM SERUM 138 mmol/L (136-145); UREA NITROGEN, BLOOD 10 mg/dL (7-18)
[2022-08-15 16:00] LABS: ALANINE AMINOTRANSFERASE 67 U/L (12-78); ALBUMIN 4.2 g/dL (3.4-5.0); ALKALINE PHOSPHATASE 87 U/L (46-116); ASPARTATE AMINOTRANSFERASE 59 U/L (15-37); BILIRUBIN,TOTAL 0.6 mg/dL (0.1-1.0); TOTAL PROTEIN, SERUM 8.1 g/dL (6.4-8.2)
[2022-08-15] MEDS ORDERED: ZOLPIDEM TARTRATE 10 MG TABLET PO PRN (16:30)
[2022-08-15 18:02] LABS: AMPHET/METH SCREEN,URINE POSITIVE (NEGATIVE); BARBITURATE SCREEN, URINE NEGATIVE (NEGATIVE); BENZODIAZEPINES SCREEN,URINE NEGATIVE (NEGATIVE); CANNABINOID SCREEN,URINE POSITIVE (NEGATIVE); COCAINE SCREEN,URINE NEGATIVE (NEGATIVE); METHADONE SCREEN, URINE NEGATIVE (NEGATIVE); OPIATE SCREEN,URINE NEGATIVE (NEGATIVE); PHENCYCLIDINE SCREEN,URINE NEGATIVE (NEGATIVE)
[2022-08-16 02:05] LABS: COVID AG,FIA SOURCE NASAL SWAB
[2022-08-16] MEDS ORDERED: INFLUENZA VIRUS VACCINE QVS 2022-23 (6MO+)/PF 60 MCG/0.5 ML SYRINGE IM. ONE (05:30)
[2022-08-16] MEDS ORDERED: PETROLATUM,WHITE 28 GM JELLY TP PRN (06:15)
[2022-08-16] MEDS ORDERED: IBUPROFEN 600 MG TABLET PO PRN (06:15)
[2022-08-16] MEDS ORDERED: MAGNESIUM HYDROXIDE SUSPENSION 30 ML UDCUP PO PRN (06:15)
[2022-08-16] MEDS ORDERED: BACITRACIN 28 GM OINTMENT TP PRN (06:15)
[2022-08-16] MEDS ORDERED: BENZOCAINE/MENTHOL LOZENGE PO PRN (06:15)
[2022-08-16] MEDS ORDERED: ACETAMINOPHEN 325 MG TABLET PO PRN (06:15)
[2022-08-16] MEDS ORDERED: OMEPRAZOLE 20 MG CAPSULE PO PRN (06:15)
[2022-08-16] MEDS ORDERED: LOPERAMIDE HCL 2 MG CAPSULE PO PRN (06:15)
[2022-08-16] MEDS ORDERED: MAG HYDROX/AL HYDROX/SIMETH ES 30 ML SUSPENSION UDCUP PO PRN (06:15)
[2022-08-16] MEDS ORDERED: CloNIDine HCL 0.1 MG TABLET PO PRN (06:15)
[2022-08-16] MEDS ORDERED: DOCUSATE SODIUM 100 MG CAPSULE PO PRN (06:15)
[2022-08-16] MEDS ORDERED: ONDANSETRON HCL 4 MG TABLET PO PRN (06:15)
[2022-08-16] MEDS ORDERED: ALBUTEROL SULFATE HFA 90 MCG/PUFF 8 GM INHALER IH PRN (06:15)
[2022-08-16 08:00] VITALS: BP 118/70
[2022-08-16] MEDS ORDERED: METF-1211 PO (12:57)
[2022-08-16] MEDS ORDERED: LISI20TA24 PO (12:57)
[2022-08-16 16:04] VITALS: BP_SYST 136; BP_SYST 97; BP_DIAS 60; BP_DIAS 92
[2022-08-16 20:26] VITALS: BP 149/90
[2022-08-16] MEDS: OLANZapine 7.5 MG TABLET PO SCH (21:04)
[2022-08-16] MEDS: TraZODone HCL 50 MG TABLET PO SCH (21:04)
[2022-08-17 10:11] VITALS: BP 129/61
[2022-08-17 15:36] LABS: HEMOGLOBIN A1C 5.9 % (3.8-5.6)
[2022-08-17 15:47] LABS: CHOL/HDL RATIO 2.5 (4.2-7.3); THYROID STIMULATING HORMONE 0.58 uIU/mL (0.36-3.74)
[2022-08-17 16:11] VITALS: BP 106/57
[2022-08-17] MEDS: TraZODone HCL 50 MG TABLET PO SCH (20:07)
[2022-08-17] MEDS: OLANZapine 7.5 MG TABLET PO SCH (20:08)
[2022-08-18 08:05] VITALS: BP 121/66
[2022-08-18] MEDS: LORazepam 2 MG TABLET PO PRN (15:21)
[2022-08-18] MEDS: OLANZapine 5 MG RAPDIS TABLET PO PRN (15:21)
[2022-08-18 16:00] VITALS: BP 90/56
[2022-08-18] MEDS: TraZODone HCL 50 MG TABLET PO SCH (20:34)
[2022-08-18] MEDS: OLANZapine 7.5 MG TABLET PO SCH (20:34)
[2022-08-19 08:08] VITALS: BP 93/57
[2022-08-19] MEDS: LORazepam 2 MG TABLET PO PRN (12:03)
[2022-08-19] MEDS: OLANZapine 5 MG RAPDIS TABLET PO PRN (12:03)
[2022-08-19 16:04] VITALS: BP 102/67
[2022-08-19] MEDS: OLANZapine 7.5 MG TABLET PO SCH (20:44)
[2022-08-19] MEDS: TraZODone HCL 50 MG TABLET PO SCH (20:44)
[2022-08-20 08:05] VITALS: BP 149/106
[2022-08-20] MEDS ORDERED: TRAZ-252 PO (10:36)
[2022-08-20] MEDS ORDERED: OLAN7.5T22 PO (10:36)
== END 2022-08-20 13:00 | disposition home or self-care (01) | DRG 750 ==
LOC: EMS 14:31 → 3EC 08-16 01:05
PROVIDERS: ADMIT Psychiatry & Neurology Psychiatry; ATTEND Psychiatry & Neurology Psychiatry
DX: F25.1 Schizoaffective disorder, depressive type (principal); R45.851 Suicidal ideations; F10.10 Alcohol abuse, uncomplicated; Z20.822 Contact with and (suspected) exposure to COVID-19; F15.10 Other stimulant abuse, uncomplicated; F41.9 Anxiety disorder, unspecified; G47.00 Insomnia, unspecified; K21.9 Gastro-esophageal reflux disease without esophagitis; Y90.3 Blood alcohol level of 60-79 mg/100 ml; I10 Essential (primary) hypertension; J44.9 Chronic obstructive pulmonary disease, unspecified; Z72.0 Tobacco use; Z71.6 Tobacco abuse counseling; Z59.00 Homelessness unspecified; Z79.899 Other long term (current) drug therapy; Z88.8 Allergy status to other drugs, medicaments and biological substances; Z91.51 Personal history of suicidal behavior
CPT/HCPCS: 80053; 80061; 83036; 84443; 85025; 99285; G0480

== ENCOUNTER 2022-09-01 00:10 | Emergency (ER) | payer MEDICAID, OTHER ==
[~2022-09-01] VITALS: Ht 172.7 cm; Wt 81.8 kg
[2022-09-01 01:57] LABS: ANION GAP 11 mmol/L (8-16); CALCIUM, TOTAL 9.5 mg/dL (8.8-10.5); CARBON DIOXIDE 30 mmol/L (22-29); CHLORIDE 99 mmol/L (98-107); GLUCOSE,RANDOM 96 mg/dL (70-110); POTASSIUM 3.6 mmol/L (3.5-5.1); SODIUM SERUM 140 mmol/L (136-145); UREA NITROGEN, BLOOD 10 mg/dL (7-18)
[2022-09-01 01:58] LABS: GLOMERULAR FILTR. RATE CALC > 60 mL/min (>60)
[2022-09-01 01:58] LABS: AMPHET/METH SCREEN,URINE NEGATIVE (NEGATIVE); BARBITURATE SCREEN, URINE NEGATIVE (NEGATIVE); BENZODIAZEPINES SCREEN,URINE NEGATIVE (NEGATIVE); CANNABINOID SCREEN,URINE POSITIVE (NEGATIVE); COCAINE SCREEN,URINE NEGATIVE (NEGATIVE); METHADONE SCREEN, URINE NEGATIVE (NEGATIVE); OPIATE SCREEN,URINE NEGATIVE (NEGATIVE)
[2022-09-01 02:01] LABS: BASOPHILS % (AUTO) 0.8 % (0.0-2.0); EOSINOPHILS % (AUTO) 0.3 % (1.0-6.0); HEMATOCRIT 42.8 % (41-53); HEMOGLOBIN 13.9 g/dL (13.5-17.5); LYMPHOCYTES % (AUTO) 29.9 % (22.0-44.0); MEAN CORPUSCULAR HEMOGLOBIN 26.6 pg (26.0-34.0); MEAN CORPUSCULAR HGB CONC 32.4 G/dL (31.0-37.0); MEAN CORPUSCULAR VOLUME 82 fL (80-100); MONOCYTES # (AUTO) 0.4 K/uL (0.1-1.0); MONOCYTES % (AUTO) 5.5 % (2.0-9.0); NEUTROPHILS # (AUTO) 4.3 K/uL (1.8-7.7); NEUTROPHILS % (AUTO) 63.5 % (40.0-70.0); PLATELET COUNT (AUTO) 285 K/uL (150-450); RED BLOOD CELL COUNT(AUTO) 5.22 MIL/uL (4.50-5.90)
[2022-09-01 02:05] LABS: ALANINE AMINOTRANSFERASE 65 U/L (12-78); ALBUMIN 4.4 g/dL (3.4-5.0); ALKALINE PHOSPHATASE 82 U/L (46-116); ASPARTATE AMINOTRANSFERASE 45 U/L (15-37); BILIRUBIN,TOTAL 0.7 mg/dL (0.1-1.0); TOTAL PROTEIN, SERUM 8.5 g/dL (6.4-8.2)
[2022-09-01 02:05] LABS: PHENCYCLIDINE SCREEN,URINE NEGATIVE (NEGATIVE)
[2022-09-01 11:35] VITALS: BP 117/62
== END 2022-09-01 13:06 | disposition home or self-care (01) ==
LOC: EMS 00:11
DX: F10.129 Alcohol abuse with intoxication, unspecified (principal); F31.9 Bipolar disorder, unspecified; I10 Essential (primary) hypertension; F20.9 Schizophrenia, unspecified; F17.210 Nicotine dependence, cigarettes, uncomplicated; F12.90 Cannabis use, unspecified, uncomplicated; F15.90 Other stimulant use, unspecified, uncomplicated; Z88.8 Allergy status to other drugs, medicaments and biological substances
CPT/HCPCS: 99283; 80053; 85025; 36415; 80307 ×2; G0480

== ENCOUNTER 2022-10-29 14:04 | Inpatient (IN) | payer MEDICAID, OTHER ==
[~2022-10-29] VITALS: Ht 172.7 cm; Wt 76.7 kg
[2022-10-29 18:25] LABS: COVID AG,FIA SOURCE NASOPHARYNGEAL
[2022-10-29 18:29] LABS: AMPHET/METH SCREEN,URINE NEGATIVE (NEGATIVE); BARBITURATE SCREEN, URINE NEGATIVE (NEGATIVE); BENZODIAZEPINES SCREEN,URINE NEGATIVE (NEGATIVE); CANNABINOID SCREEN,URINE POSITIVE (NEGATIVE); COCAINE SCREEN,URINE NEGATIVE (NEGATIVE); METHADONE SCREEN, URINE NEGATIVE (NEGATIVE); OPIATE SCREEN,URINE NEGATIVE (NEGATIVE); PHENCYCLIDINE SCREEN,URINE NEGATIVE (NEGATIVE)
[2022-10-29 18:32] LABS: BASOPHILS % (AUTO) 0.9 % (0.0-2.0); EOSINOPHILS % (AUTO) 1.2 % (1.0-6.0); HEMATOCRIT 42.7 % (41-53); HEMOGLOBIN 13.4 g/dL (13.5-17.5); LYMPHOCYTES # (AUTO) 0.7 K/uL (1.0-4.8); LYMPHOCYTES % (AUTO) 19.8 % (22.0-44.0); MEAN CORPUSCULAR HEMOGLOBIN 26.9 pg (26.0-34.0); MEAN CORPUSCULAR HGB CONC 31.5 G/dL (31.0-37.0); MEAN CORPUSCULAR VOLUME 86 fL (80-100); MONOCYTES # (AUTO) 0.5 K/uL (0.1-1.0); MONOCYTES % (AUTO) 13.7 % (2.0-9.0); NEUTROPHILS # (AUTO) 2.3 K/uL (1.8-7.7); NEUTROPHILS % (AUTO) 64.4 % (40.0-70.0); PLATELET COUNT (AUTO) 188 K/uL (150-450); RED BLOOD CELL COUNT(AUTO) 4.99 MIL/uL (4.50-5.90); RED CELL DISTRIBUTION WIDTH 21.1 % (11.5-14.5)
[2022-10-29 18:37] LABS: ANION GAP 11 mmol/L (8-16); CALCIUM, TOTAL 9.4 mg/dL (8.8-10.5); CARBON DIOXIDE 30 mmol/L (22-29); CHLORIDE 103 mmol/L (98-107); CREATININE 1.01 mg/dL (0.60-1.30); GLOMERULAR FILTR. RATE CALC > 60 mL/min (>60); GLUCOSE,RANDOM 83 mg/dL (70-110); POTASSIUM 3.8 mmol/L (3.5-5.1); SODIUM SERUM 144 mmol/L (136-145); UREA NITROGEN, BLOOD 9 mg/dL (7-18)
[2022-10-29 18:43] LABS: ALANINE AMINOTRANSFERASE 201 U/L (12-78); ALBUMIN 4.1 g/dL (3.4-5.0); ALKALINE PHOSPHATASE 67 U/L (46-116); ASPARTATE AMINOTRANSFERASE 197 U/L (15-37); BILIRUBIN,TOTAL 0.7 mg/dL (0.1-1.0); TOTAL PROTEIN, SERUM 7.8 g/dL (6.4-8.2)
[2022-10-29] MEDS ORDERED: ZOLPIDEM TARTRATE 10 MG TABLET PO PRN (21:30)
[2022-10-30 00:06] VITALS: BP 141/93
[2022-10-30] MEDS ORDERED: INFLUENZA VIRUS VACCINE QVS 2022-23 (6MO+)/PF 60 MCG/0.5 ML SYRINGE IM. ONE (00:45)
[2022-10-30 08:23] VITALS: BP 114/69
[2022-10-30 20:33] VITALS: BP 121/82
[2022-10-30] MEDS: LORazepam 2 MG TABLET PO PRN (21:39)
[2022-10-31 08:04] VITALS: BP 115/69
[2022-10-31] MEDS: LORazepam 2 MG TABLET PO PRN ×2 (12:02→21:16)
[2022-10-31] MEDS: OLANZapine 7.5 MG TABLET PO SCH (13:53)
[2022-10-31 20:36] VITALS: BP 112/72
[2022-10-31] MEDS ORDERED: TraZODone HCL 50 MG TABLET PO SCH (21:00)
[2022-10-31] MEDS ORDERED: OLANZapine 7.5 MG TABLET PO SCH (21:00)
[2022-10-31] MEDS: TraZODone HCL 100 MG TABLET PO SCH (21:16)
[2022-11-01 08:00] VITALS: BP 123/85
[2022-11-01] MEDS: OLANZapine 7.5 MG TABLET PO SCH (09:47)
[2022-11-01] MEDS: TraZODone HCL 100 MG TABLET PO SCH (20:27)
[2022-11-01] MEDS: LORazepam 2 MG TABLET PO PRN (20:27)
[2022-11-01 20:37] VITALS: BP 137/80
[2022-11-02] MEDS: OLANZapine 7.5 MG TABLET PO SCH (08:21)
[2022-11-02] MEDS ORDERED: TRAZ-257 PO (09:28)
[2022-11-02] MEDS ORDERED: OLAN7.5T22 PO (09:28)
== END 2022-11-02 13:19 | disposition home or self-care (01) | DRG 750 ==
LOC: EMS 14:12 → B3A 23:20
PROVIDERS: ADMIT Psychiatry & Neurology Psychiatry; ATTEND Psychiatry & Neurology Psychiatry
DX: F25.0 Schizoaffective disorder, bipolar type (principal); R45.851 Suicidal ideations; D64.9 Anemia, unspecified; D72.819 Decreased white blood cell count, unspecified; F10.10 Alcohol abuse, uncomplicated; F17.200 Nicotine dependence, unspecified, uncomplicated; F12.10 Cannabis abuse, uncomplicated; F32.A Depression, unspecified; I10 Essential (primary) hypertension; Z20.822 Contact with and (suspected) exposure to COVID-19; Z79.899 Other long term (current) drug therapy; Z88.8 Allergy status to other drugs, medicaments and biological substances
CPT/HCPCS: 80053; 80307; 85025; 99285; G0480

== ENCOUNTER 2024-01-22 20:31 | Inpatient (IN) | payer MEDICAID ==
[~2024-01-22] VITALS: Ht 172.7 cm; Wt 74.8 kg
[~2024-01-22 20:31] MED LIST changes: -TRAZ-252 PO; +TRAZ-257 PO
[2024-01-22 21:03] LABS: BASOPHILS % (AUTO) 0.4 % (0.0-2.0); EOSINOPHILS % (AUTO) 0 % (1.0-6.0); HEMATOCRIT 43.1 % (41-53); HEMOGLOBIN 14.1 g/dL (13.5-17.5); LYMPHOCYTES # (AUTO) 1.1 K/uL (1.0-4.8); LYMPHOCYTES % (AUTO) 11.8 % (22.0-44.0); MEAN CORPUSCULAR HEMOGLOBIN 26.6 pg (26.0-34.0); MEAN CORPUSCULAR HGB CONC 32.7 G/dL (31.0-37.0); MEAN CORPUSCULAR VOLUME 81 fL (80-100); MONOCYTES # (AUTO) 0.8 K/uL (0.1-1.0); MONOCYTES % (AUTO) 8.1 % (2.0-9.0); NEUTROPHILS # (AUTO) 7.6 K/uL (1.8-7.7); NEUTROPHILS % (AUTO) 79.7 % (40.0-70.0); PLATELET COUNT (AUTO) 272 K/uL (150-450); RED CELL DISTRIBUTION WIDTH 14.8 % (11.5-14.5); WHITE BLOOD COUNT (AUTO) 9.5 K/uL (4.5-11.0)
[2024-01-22 21:11] LABS: CALCIUM, TOTAL 9.4 mg/dL (8.8-10.5); CREATININE 1.69 mg/dL (0.60-1.30); POTASSIUM 5.4 mmol/L (3.5-5.1)
[2024-01-23] MEDS: SODIUM CHLORIDE 0.9% 1,000 ML IV ONE (01:40)
[2024-01-23 02:38] LABS: COVID AG,FIA SOURCE NASAL SWAB
[2024-01-23 02:48] LABS: ALCOHOL, URINE DRUG SCREEN POSITIVE (NEGATIVE); AMPHET/METH SCREEN,URINE POSITIVE (NEGATIVE); BARBITURATE SCREEN, URINE NEGATIVE (NEGATIVE); BENZODIAZEPINES SCREEN,URINE NEGATIVE (NEGATIVE); CANNABINOID SCREEN,URINE NEGATIVE (NEGATIVE); COCAINE SCREEN,URINE NEGATIVE (NEGATIVE); METHADONE SCREEN, URINE NEGATIVE (NEGATIVE); OPIATE SCREEN,URINE NEGATIVE (NEGATIVE); PHENCYCLIDINE SCREEN,URINE NEGATIVE (NEGATIVE)
[2024-01-23 03:39] LABS: SARS-COV2 (COVID) ANTIGEN,FIA Negative (Negative)
[2024-01-23] MEDS: LORazepam 2 MG TABLET PO PRN (11:55)
[2024-01-23] MEDS: OLANZapine 5 MG RAPDIS TABLET PO PRN (11:55)
[2024-01-23 18:06] VITALS: BP 136/76; PULSE 91; RESP 15; TEMP 97.7
[2024-01-23 18:08] VITALS: BP 136/76; PULSE 91; RESP 15; TEMP 97.7; O2SAT 95
[2024-01-23] MEDS ORDERED: OLAN10TA74 PO (18:50)
[2024-01-23] MEDS ORDERED: LISI20TA24 PO (18:50)
[2024-01-23] MEDS ORDERED: HYDR50CA6 PO (18:50)
[2024-01-23] MEDS ORDERED: SERT-439 PO (18:50)
[2024-01-23 22:12] VITALS: BP 142/81; PULSE 84; RESP 16; TEMP 98.4; O2SAT 95
[2024-01-24 08:40] VITALS: BP 127/68; PULSE 96; RESP 18; TEMP 98.3; O2SAT 95
[2024-01-24] MEDS: BACITRACIN 28 GM OINTMENT TP SCH (08:46)
[2024-01-24] MEDS: SERTRALINE HCL 50 MG TABLET PO SCH (13:42)
[2024-01-24] MEDS ORDERED: DOCUSATE SODIUM 100 MG CAPSULE PO PRN (14:30)
[2024-01-24] MEDS ORDERED: LOPERAMIDE HCL 2 MG CAPSULE PO PRN (14:30)
[2024-01-24] MEDS ORDERED: MAG HYDROX/ALUMINUM HYD/SIMETH ES 30 ML SUSPENSION UDCUP PO PRN (14:30)
[2024-01-24] MEDS ORDERED: MAGNESIUM HYDROXIDE SUSPENSION 30 ML UDCUP PO PRN (14:30)
[2024-01-24] MEDS ORDERED: ACETAMINOPHEN 325 MG TABLET PO PRN (14:30)
[2024-01-24] MEDS ORDERED: PETROLATUM,WHITE 28 GM JELLY TP PRN (14:30)
[2024-01-24] MEDS ORDERED: IBUPROFEN 400 MG TABLET PO PRN (14:30)
[2024-01-24] MEDS ORDERED: ONDANSETRON HCL 4 MG TABLET PO PRN (14:30)
[2024-01-24] MEDS ORDERED: NICOTINE 14 MG/24 HOUR PATCH TD PRN (14:30)
[2024-01-24] MEDS ORDERED: CloNIDine HCL 0.1 MG TABLET PO PRN (14:30)
[2024-01-24] MEDS: SODIUM POLYSTYRENE SULFONATE 15 GM/60 ML SUSPENSION BOTTLE PO ONE (16:51)
[2024-01-24 20:30] VITALS: BP 110/64; PULSE 93; TEMP 98.4; O2SAT 98
[2024-01-24] MEDS: TraZODone HCL 100 MG TABLET PO SCH (20:41)
[2024-01-24] MEDS: OLANZapine 10 MG TABLET PO SCH (20:42)
[2024-01-25] MEDS: ALBUTEROL SULFATE HFA 90 MCG/PUFF 8 GM INHALER IH PRN (06:49)
[2024-01-25] MEDS: GuaiFENesin/D-METHORPHAN [SUGAR-FREE] 200-20MG/10 ML SYRUP UDCUP PO PRN (06:52)
[2024-01-25 08:15] VITALS: BP 129/60; PULSE 100; RESP 16; TEMP 98.4; O2SAT 97
[2024-01-25 08:35] LABS: CHOL/HDL RATIO 3.7 (4.2-7.3); POTASSIUM 3.6 mmol/L (3.5-5.1)
[2024-01-25 08:38] LABS: APPEARANCE,URINE CLEAR (CLEAR); BILIRUBIN,URINE NEGATIVE (NEGATIVE); COLOR,URINE YELLOW (YELLOW); GLUCOSE, URINE (UA) NEGATIVE (NEGATIVE); KETONES,URINE NEGATIVE (NEGATIVE); LEUKOCYTE ESTERASE ,URINE TRACE (NEGATIVE); NITRATE,URINE NEGATIVE (NEGATIVE); OCCULT BLOOD,URINE NEGATIVE (NEGATIVE); PROTEIN,URINE TRACE mg/dL (NEGATIVE); UROBILINOGEN,URINE <=1.0 mg/dL (<=1.0)
[2024-01-25 08:41] LABS: HEMOGLOBIN A1C 5.6 % (3.8-5.6)
[2024-01-25 08:45] LABS: ALCOHOL, URINE DRUG SCREEN NEGATIVE (NEGATIVE); AMPHET/METH SCREEN,URINE NEGATIVE (NEGATIVE); BARBITURATE SCREEN, URINE NEGATIVE (NEGATIVE); BENZODIAZEPINES SCREEN,URINE NEGATIVE (NEGATIVE); CANNABINOID SCREEN,URINE POSITIVE (NEGATIVE); COCAINE SCREEN,URINE NEGATIVE (NEGATIVE); METHADONE SCREEN, URINE NEGATIVE (NEGATIVE); OPIATE SCREEN,URINE NEGATIVE (NEGATIVE); PHENCYCLIDINE SCREEN,URINE NEGATIVE (NEGATIVE)
[2024-01-25 09:02] LABS: RBC,URINE None Seen /HPF (0-2); WBC,URINE 0-2 /HPF (0-5)
[2024-01-25 09:03] LABS: BACTERIA,URINE Rare /HPF (None Seen)
[2024-01-25 09:13] LABS: THYROID STIMULATING HORMONE 3.08 uIU/mL (0.36-3.74)
[2024-01-25] MEDS: AZITHROMYCIN 500 MG TABLET PO SCH (16:28)
[2024-01-25 20:29] VITALS: BP 107/53; PULSE 80; TEMP 98; O2SAT 97
[2024-01-26 08:37] VITALS: BP 125/73; PULSE 86; RESP 18; TEMP 97.5; O2SAT 98
[2024-01-26] MEDS ORDERED: PNEUMOCOCCAL VACCINE POLYVALENT 0.5 ML SYRINGE [PPSV23] IM. ONE (12:30)
[2024-01-26 20:30] VITALS: BP 109/61; PULSE 75; RESP 18; TEMP 98; O2SAT 98
[2024-01-27 08:36] VITALS: BP 100/60; PULSE 72; RESP 16; TEMP 97.5; O2SAT 96
[2024-01-27 18:11] VITALS: BP 109/68; PULSE 63; RESP 16; TEMP 98.2; O2SAT 94
[2024-01-27 21:07] VITALS: BP 109/68; PULSE 63; RESP 16; TEMP 98.5; O2SAT 94
[2024-01-27] MEDS: ZOLPIDEM TARTRATE 10 MG TABLET PO PRN (22:18)
[2024-01-28 08:57] VITALS: BP 98/61; PULSE 78; RESP 17; TEMP 98; O2SAT 97
[2024-01-28 21:53] VITALS: BP 121/71; PULSE 89; RESP 16; TEMP 91.9; O2SAT 95
[2024-01-29 08:00] VITALS: BP 111/58; PULSE 72; RESP 19; TEMP 98.1; O2SAT 97
[2024-01-29 08:40] VITALS: BP 111/68; PULSE 72; RESP 18; TEMP 97.8; O2SAT 95
[2024-01-29 20:23] VITALS: BP 114/72; PULSE 77; RESP 16; TEMP 98; O2SAT 97
[2024-01-30 08:05] VITALS: BP 143/96; PULSE 93; RESP 18; TEMP 97.8; O2SAT 97
[2024-01-30 21:23] VITALS: BP 125/78; PULSE 64; RESP 17; TEMP 97.6; O2SAT 97
[2024-01-31 09:15] VITALS: BP 140/85; PULSE 86; RESP 18; TEMP 96.3; O2SAT 96
[2024-01-31 20:46] VITALS: BP 133/64; PULSE 85; RESP 18; TEMP 98; O2SAT 97
[2024-02-01] MEDS ORDERED: SERT-439 PO (05:38)
[2024-02-01] MEDS ORDERED: OLAN10TA74 PO (05:38)
== END 2024-02-01 10:53 | disposition home or self-care (01) | DRG 750 ==
LOC: EMS 20:33 → B2S 01-23 12:19 → B3A 01-23 18:30 → B2S 01-29 16:10
PROVIDERS: ADMIT Psychiatry & Neurology Psychiatry; ATTEND Psychiatry & Neurology Psychiatry
PROC: GZHZZZZ Group Psychotherapy (ICD-10-PCS; principal; 2024-01-24)
PROC: GZ56ZZZ Individual Psychotherapy, Supportive (ICD-10-PCS; 2024-01-24)
DX: F25.1 Schizoaffective disorder, depressive type (principal); N17.9 Acute kidney failure, unspecified; E87.1 Hypo-osmolality and hyponatremia; F15.20 Other stimulant dependence, uncomplicated; I10 Essential (primary) hypertension; E87.5 Hyperkalemia; R45.851 Suicidal ideations; F19.10 Other psychoactive substance abuse, uncomplicated; G47.00 Insomnia, unspecified; F17.210 Nicotine dependence, cigarettes, uncomplicated; F10.229 Alcohol dependence with intoxication, unspecified; Z79.899 Other long term (current) drug therapy; Z88.8 Allergy status to other drugs, medicaments and biological substances; Z20.822 Contact with and (suspected) exposure to COVID-19
CPT/HCPCS: 71047; 80048; 80061; 80307; 81001; 83036; 84132; 84443; 85025; 99285; G0480; J3535; Q9967; 36415-L1; 36415-TC

== ENCOUNTER 2024-05-24 16:22 | Inpatient (IN) | payer MEDICAID, OTHER ==
[~2024-05-24] VITALS: Ht 172.7 cm; Wt 77.3 kg
[~2024-05-24 16:22] MED LIST changes: +OLAN10TA74 PO; -OLAN7.5T22 PO; +SERT-439 PO
[2024-05-24] MEDS ORDERED: LORazepam 2 MG TABLET PO PRN (17:45)
[2024-05-24] MEDS ORDERED: ZOLPIDEM TARTRATE 10 MG TABLET PO PRN (17:45)
[2024-05-24] MEDS ORDERED: OLANZapine 5 MG RAPDIS TABLET PO PRN (17:45)
[2024-05-24 17:54] LABS: BASOPHILS % (AUTO) 0.7 % (0.0-2.0); EOSINOPHILS % (AUTO) 0.7 % (1.0-6.0); HEMATOCRIT 47.4 % (41-53); HEMOGLOBIN 15.3 g/dL (13.5-17.5); LYMPHOCYTES # (AUTO) 1.5 K/uL (1.0-4.8); LYMPHOCYTES % (AUTO) 29.1 % (22.0-44.0); MEAN CORPUSCULAR HEMOGLOBIN 26.2 pg (26.0-34.0); MEAN CORPUSCULAR HGB CONC 32.2 G/dL (31.0-37.0); MEAN CORPUSCULAR VOLUME 81 fL (80-100); MONOCYTES # (AUTO) 0.4 K/uL (0.1-1.0); MONOCYTES % (AUTO) 8.4 % (2.0-9.0); NEUTROPHILS # (AUTO) 3.1 K/uL (1.8-7.7); NEUTROPHILS % (AUTO) 61.1 % (40.0-70.0); PLATELET COUNT (AUTO) 210 K/uL (150-450); RED BLOOD CELL COUNT(AUTO) 5.83 MIL/uL (4.50-5.90); RED CELL DISTRIBUTION WIDTH 17.6 % (11.5-14.5); WHITE BLOOD COUNT (AUTO) 5.1 K/uL (4.5-11.0)
[2024-05-24 17:57] LABS: ANION GAP 13 mmol/L (8-16); CALCIUM, TOTAL 9.2 mg/dL (8.8-10.5); CARBON DIOXIDE 26 mmol/L (22-29); CHLORIDE 98 mmol/L (98-107); CREATININE 1.36 mg/dL (0.60-1.30); GLOMERULAR FILTR. RATE CALC > 60 mL/min (>60); GLUCOSE,RANDOM 84 mg/dL (70-110); POTASSIUM 4.5 mmol/L (3.5-5.1); SODIUM SERUM 137 mmol/L (136-145); UREA NITROGEN, BLOOD 24 mg/dL (7-18)
[2024-05-24 18:02] LABS: ALCOHOL, BLOOD (SERUM) < 3 mg/dL (0-10)
[2024-05-24 20:33] LABS: COVID AG,FIA SOURCE NASAL SWAB
[2024-05-24 20:44] LABS: SARS-COV2 (COVID) ANTIGEN,FIA Negative (Negative)
[2024-05-24 23:12] VITALS: O2SAT 99
[2024-05-24 23:30] VITALS: BP 126/68; PULSE 83; RESP 18; TEMP 97.3; O2SAT 98
[2024-05-25 01:46] LABS: GLUCOMETER DEV NAME(LOC) BV2S.; GLUCOSE,POINT OF CARE 105 MG/DL (70-110)
[2024-05-25] MEDS: INFLUENZA VIRUS VACCINE TVS (6MO+) 2024-25/PF 45 MCG/0.5 ML SYRINGE IM. ONE (06:40)
[2024-05-25] MEDS: PNEUMOCOCCAL VACCINE POLYVALENT 0.5 ML SYRINGE [PPSV23] IM. ONE (06:40)
[2024-05-25] MEDS ORDERED: ALBUTEROL SULFATE HFA 90 MCG/PUFF 8 GM INHALER IH PRN (07:30)
[2024-05-25] MEDS ORDERED: PETROLATUM,WHITE 28 GM JELLY TP PRN (07:30)
[2024-05-25] MEDS ORDERED: LOPERAMIDE HCL 2 MG CAPSULE PO PRN (07:30)
[2024-05-25] MEDS ORDERED: ONDANSETRON 4 MG TABLET PO PRN (07:30)
[2024-05-25] MEDS ORDERED: MAG HYDROX/ALUMINUM HYD/SIMETH ES 30 ML SUSPENSION UDCUP PO PRN (07:30)
[2024-05-25] MEDS ORDERED: OMEPRAZOLE 20 MG CAPSULE PO PRN (07:30)
[2024-05-25] MEDS ORDERED: BENZOCAINE/MENTHOL LOZENGE PO PRN (07:30)
[2024-05-25] MEDS ORDERED: DOCUSATE SODIUM 100 MG CAPSULE PO PRN (07:30)
[2024-05-25] MEDS ORDERED: CloNIDine HCL 0.1 MG TABLET PO PRN (07:30)
[2024-05-25] MEDS ORDERED: MAGNESIUM HYDROXIDE SUSPENSION 30 ML UDCUP PO PRN (07:30)
[2024-05-25] MEDS ORDERED: ACETAMINOPHEN 325 MG TABLET PO PRN (07:30)
[2024-05-25] MEDS ORDERED: BACITRACIN 28 GM OINTMENT TP PRN (07:30)
[2024-05-25] MEDS ORDERED: IBUPROFEN 600 MG TABLET PO PRN (07:30)
[2024-05-25 08:37] VITALS: BP 105/96; PULSE 62; RESP 18; TEMP 96.5; O2SAT 95
[2024-05-25] MEDS: OLANZapine 10 MG TABLET PO SCH (20:23)
[2024-05-25] MEDS: TraZODone HCL 50 MG TABLET PO SCH (20:23)
[2024-05-25 20:33] VITALS: BP 121/86; PULSE 92; RESP 18; TEMP 97.3; O2SAT 96
[2024-05-26] MEDS: SERTRALINE HCL 50 MG TABLET PO SCH (08:33)
[2024-05-26 08:34] LABS: ANION GAP 10 mmol/L (8-16); CALCIUM, TOTAL 8.7 mg/dL (8.8-10.5); CARBON DIOXIDE 27 mmol/L (22-29); CHLORIDE 103 mmol/L (98-107); CREATININE 1.06 mg/dL (0.60-1.30); GLOMERULAR FILTR. RATE CALC > 60 mL/min (>60); GLUCOSE,RANDOM 76 mg/dL (70-110); POTASSIUM 4.2 mmol/L (3.5-5.1); SODIUM SERUM 140 mmol/L (136-145); UREA NITROGEN, BLOOD 18 mg/dL (7-18)
[2024-05-26 08:39] VITALS: BP 129/81; PULSE 70; RESP 18; TEMP 98; O2SAT 100
[2024-05-26 20:58] VITALS: BP 124/80; PULSE 75; RESP 18; TEMP 96.3; O2SAT 99
[2024-05-27 09:31] VITALS: BP 107/63; PULSE 70; RESP 18; TEMP 97.9; O2SAT 100
[2024-05-27 20:40] VITALS: BP 116/80; PULSE 96; RESP 18; TEMP 97.9; O2SAT 96
[2024-05-28 08:59] VITALS: BP 140/96; PULSE 66; RESP 17; TEMP 97.8; O2SAT 100
[2024-05-28] MEDS ORDERED: TRAZ-184 PO (09:13)
[2024-05-28] MEDS ORDERED: OLAN10TA74 PO (09:14)
[2024-05-28] MEDS ORDERED: SERT-158 PO (09:15)
== END 2024-05-28 09:50 | disposition home or self-care (01) | DRG 751 ==
LOC: EMS 16:22 → B2S 23:40
PROVIDERS: ADMIT Psychiatry & Neurology Psychiatry; ATTEND Psychiatry & Neurology Psychiatry
DX: F33.3 Major depressive disorder, recurrent, severe with psychotic symptoms (principal); R45.851 Suicidal ideations; J44.9 Chronic obstructive pulmonary disease, unspecified; N28.9 Disorder of kidney and ureter, unspecified; E78.5 Hyperlipidemia, unspecified; F17.200 Nicotine dependence, unspecified, uncomplicated; I10 Essential (primary) hypertension; Z20.822 Contact with and (suspected) exposure to COVID-19; F41.9 Anxiety disorder, unspecified; G47.00 Insomnia, unspecified; R74.01 Elevation of levels of liver transaminase levels; F10.90 Alcohol use, unspecified, uncomplicated; F12.90 Cannabis use, unspecified, uncomplicated; Y90.9 Presence of alcohol in blood, level not specified; F17.210 Nicotine dependence, cigarettes, uncomplicated
CPT/HCPCS: 80048; 82962; 85025; 87081; 99285; G0480

== ENCOUNTER 2024-08-08 19:41 | Inpatient (IN) | payer MEDICAID, OTHER ==
[~2024-08-08] VITALS: Ht 172.7 cm; Wt 84.5 kg
[~2024-08-08 19:41] MED LIST changes: +TRAZ-252 PO; -TRAZ-257 PO
[2024-08-08 21:13] LABS: COVID AG,FIA SOURCE NASAL SWAB
[2024-08-08 21:25] LABS: ALCOHOL, URINE DRUG SCREEN POSITIVE (NEGATIVE); AMPHET/METH SCREEN,URINE NEGATIVE (NEGATIVE); BARBITURATE SCREEN, URINE NEGATIVE (NEGATIVE); BENZODIAZEPINES SCREEN,URINE NEGATIVE (NEGATIVE); CANNABINOID SCREEN,URINE POSITIVE (NEGATIVE); COCAINE SCREEN,URINE NEGATIVE (NEGATIVE); METHADONE SCREEN, URINE NEGATIVE (NEGATIVE); OPIATE SCREEN,URINE NEGATIVE (NEGATIVE); PHENCYCLIDINE SCREEN,URINE NEGATIVE (NEGATIVE)
[2024-08-08 21:37] LABS: BASOPHILS % (AUTO) 1.2 % (0.0-2.0); EOSINOPHILS % (AUTO) 0.2 % (1.0-6.0); HEMOGLOBIN 12.5 g/dL (13.5-17.5); LYMPHOCYTES # (AUTO) 1.7 K/uL (1.0-4.8); LYMPHOCYTES % (AUTO) 21.2 % (22.0-44.0); MEAN CORPUSCULAR HEMOGLOBIN 27.5 pg (26.0-34.0); MEAN CORPUSCULAR HGB CONC 32.8 G/dL (31.0-37.0); MEAN CORPUSCULAR VOLUME 84 fL (80-100); MONOCYTES # (AUTO) 0.7 K/uL (0.1-1.0); NEUTROPHILS # (AUTO) 5.7 K/uL (1.8-7.7); NEUTROPHILS % (AUTO) 69.4 % (40.0-70.0); PLATELET COUNT (AUTO) 287 K/uL (150-450); RED BLOOD CELL COUNT(AUTO) 4.55 MIL/uL (4.50-5.90); RED CELL DISTRIBUTION WIDTH 17.7 % (11.5-14.5); WHITE BLOOD COUNT (AUTO) 8.2 K/uL (4.5-11.0)
[2024-08-08 21:45] LABS: CALCIUM, TOTAL 8.6 mg/dL (8.8-10.5); CREATININE 1.67 mg/dL (0.60-1.30); POTASSIUM 4.1 mmol/L (3.5-5.1)
[2024-08-08 22:24] LABS: SARS-COV2 (COVID) ANTIGEN,FIA Negative (Negative)
[2024-08-08] MEDS ORDERED: ZOLPIDEM TARTRATE 10 MG TABLET PO PRN (23:15)
[2024-08-08] MEDS ORDERED: MAG HYDROX/ALUMINUM HYD/SIMETH ES 30 ML SUSPENSION UDCUP PO PRN (23:15)
[2024-08-08] MEDS ORDERED: OLANZapine 5 MG RAPDIS TABLET PO PRN (23:15)
[2024-08-08] MEDS ORDERED: MAGNESIUM HYDROXIDE SUSPENSION 30 ML UDCUP PO PRN (23:15)
[2024-08-08] MEDS ORDERED: LOPERAMIDE HCL 2 MG CAPSULE PO PRN (23:15)
[2024-08-09] VITALS (8 sets, daily range): BP systolic 109–134; BP diastolic 66–83; PULSE 73–85; RESP 17–20; TEMP 96.7–97.4; O2SAT 95–97
[2024-08-09] MEDS: LORazepam 2 MG TABLET PO PRN (03:31)
[2024-08-09] MEDS ORDERED: MAGNESIUM HYDROXIDE SUSPENSION 30 ML UDCUP PO PRN (10:30)
[2024-08-09] MEDS ORDERED: DOCUSATE SODIUM 100 MG CAPSULE PO PRN (10:30)
[2024-08-09] MEDS ORDERED: GuaiFENesin/D-METHORPHAN [SUGAR-FREE] 200-20MG/10 ML SYRUP UDCUP PO PRN (10:30)
[2024-08-09] MEDS ORDERED: CloNIDine HCL 0.1 MG TABLET PO PRN (10:30)
[2024-08-09] MEDS ORDERED: ONDANSETRON 4 MG TABLET PO PRN (10:30)
[2024-08-09] MEDS ORDERED: ALBUTEROL SULFATE HFA 90 MCG/PUFF 8 GM INHALER IH PRN (10:30)
[2024-08-09] MEDS ORDERED: MAG HYDROX/ALUMINUM HYD/SIMETH ES 30 ML SUSPENSION UDCUP PO PRN (10:30)
[2024-08-09] MEDS ORDERED: ACETAMINOPHEN 325 MG TABLET PO PRN (10:30)
[2024-08-09] MEDS ORDERED: LOPERAMIDE HCL 2 MG CAPSULE PO PRN (10:30)
[2024-08-09] MEDS ORDERED: NICOTINE 14 MG/24 HOUR PATCH TD PRN (10:30)
[2024-08-09] MEDS: SERTRALINE HCL 50 MG TABLET PO SCH (12:39)
[2024-08-09] MEDS: OLANZapine 10 MG TABLET PO SCH (20:05)
[2024-08-09] MEDS: TraZODone HCL 50 MG TABLET PO SCH (20:05)
[2024-08-10 06:06] LABS: HEPATITIS C AB (EIA) Non Reactive (Non Reactive)
[2024-08-10 08:21] VITALS: BP 140/65; PULSE 77; RESP 16; TEMP 98; O2SAT 99
[2024-08-10 09:52] LABS: THYROID STIMULATING HORMONE 0.56 uIU/mL (0.36-3.74)
[2024-08-10 10:07] LABS: HEMOGLOBIN A1C 5.4 % (3.8-5.6)
[2024-08-10 10:28] LABS: CHOL/HDL RATIO 2.1 (4.2-7.3)
[2024-08-10] MEDS: PETROLATUM,WHITE 28 GM JELLY TP PRN (17:45)
[2024-08-10 20:00] VITALS: BP 138/88; PULSE 77; RESP 16; RESP 18; TEMP 97.7; O2SAT 97
[2024-08-11 08:15] VITALS: BP 111/62; PULSE 70; RESP 16; TEMP 97.4; O2SAT 99
[2024-08-11 20:11] VITALS: BP 120/66; PULSE 60; RESP 16; TEMP 97.6; O2SAT 100
[2024-08-11 20:41] VITALS: BP 125/63; PULSE 71; RESP 16; TEMP 97.1; O2SAT 99
[2024-08-11] MEDS: IBUPROFEN 400 MG TABLET PO PRN (20:47)
[2024-08-11 21:41] VITALS: RESP 17; O2SAT 98
[2024-08-12] VITALS: BP 125/63; PULSE 71; RESP 18; TEMP 97.1
[2024-08-12 08:18] VITALS: BP 134/60; PULSE 66; RESP 17; TEMP 98; O2SAT 100
[2024-08-12 20:16] VITALS: BP 136/62; PULSE 79; RESP 16; TEMP 98.1; O2SAT 100
[2024-08-12] MEDS: ACETAMINOPHEN 325 MG TABLET PO PRN (20:41)
[2024-08-12 20:47] VITALS: BP 132/68; PULSE 72; RESP 16; TEMP 97.1; O2SAT 98
[2024-08-12 21:47] VITALS: TEMP 97.2
[2024-08-13 08:08] VITALS: BP 124/64; PULSE 84; RESP 18; TEMP 98.1; O2SAT 100
[2024-08-13 11:07] VITALS: RESP 18; O2SAT 100
[2024-08-13 12:07] VITALS: RESP 17; O2SAT 100
[2024-08-13 20:00] VITALS: BP 135/77; PULSE 64; RESP 18; TEMP 97.7; O2SAT 99
[2024-08-13 21:05] VITALS: RESP 18
[2024-08-13 22:05] VITALS: RESP 18
[2024-08-14 08:26] VITALS: BP 121/69; PULSE 66; RESP 17; TEMP 98.3; O2SAT 100
[2024-08-14 09:23] LABS: APPEARANCE,URINE TURBID (CLEAR); BILIRUBIN,URINE NEGATIVE (NEGATIVE); GLUCOSE, URINE (UA) NEGATIVE (NEGATIVE); KETONES,URINE NEGATIVE (NEGATIVE); LEUKOCYTE ESTERASE ,URINE SMALL (NEGATIVE); NITRATE,URINE NEGATIVE (NEGATIVE); OCCULT BLOOD,URINE NEGATIVE (NEGATIVE); PROTEIN,URINE TRACE mg/dL (NEGATIVE); SPECIFIC GRAVITIY, URINE 1.033 (1.003-1.030); UROBILINOGEN,URINE <=1.0 mg/dL (<=1.0)
[2024-08-14 09:24] LABS: COLOR,URINE YELLOW (YELLOW)
[2024-08-14 10:15] LABS: AMORPHOUS SEDIMENT,UR Many /LPF (None Seen); BACTERIA,URINE Moderate /HPF (None Seen); RBC,URINE None Seen /HPF (0-2); SQUAMOUS EPITHELIAL CELL,UR Few /LPF (None Seen); WBC,URINE None Seen /HPF (0-5)
[2024-08-14 20:10] VITALS: BP 151/90; PULSE 74; RESP 17; TEMP 97.8; O2SAT 96
[2024-08-14 23:35] VITALS: BP 151/90; PULSE 74; RESP 17; TEMP 97.8; O2SAT 96
[2024-08-15 08:29] VITALS: BP 111/60; PULSE 61; RESP 17; TEMP 97.8; O2SAT 99
[2024-08-15 20:09] VITALS: BP 134/83; PULSE 77; RESP 17; TEMP 97.8; O2SAT 99
[2024-08-15 20:13] VITALS: RESP 18; O2SAT 99
[2024-08-15 21:13] VITALS: RESP 17; O2SAT 99
[2024-08-16 08:07] VITALS: BP 123/71; PULSE 71; RESP 18; TEMP 97.4; O2SAT 99
[2024-08-16] MEDS: MULTIVITAMINS WITH MINERALS, THERAPEUTIC TABLET PO SCH (08:22)
[2024-08-16] MEDS: FOLIC ACID 1 MG TABLET PO SCH (08:22)
[2024-08-16] MEDS: THIAMINE 100 MG TABLET PO SCH (08:23)
[2024-08-16 09:12] LABS: APPEARANCE,URINE CLEAR (CLEAR); BILIRUBIN,URINE NEGATIVE (NEGATIVE); COLOR,URINE YELLOW (YELLOW); GLUCOSE, URINE (UA) NEGATIVE (NEGATIVE); KETONES,URINE NEGATIVE (NEGATIVE); LEUKOCYTE ESTERASE ,URINE NEGATIVE (NEGATIVE); NITRATE,URINE NEGATIVE (NEGATIVE); OCCULT BLOOD,URINE NEGATIVE (NEGATIVE); PH,URINE 5.5 (5.0-8.0); PROTEIN,URINE TRACE mg/dL (NEGATIVE); SPECIFIC GRAVITIY, URINE 1.028 (1.003-1.030); UROBILINOGEN,URINE <=1.0 mg/dL (<=1.0)
[2024-08-16 20:01] VITALS: BP 120/72; PULSE 73; RESP 18; TEMP 97.5
[2024-08-17 08:21] VITALS: BP 111/67; PULSE 68; RESP 18; TEMP 98; O2SAT 100
[2024-08-17 20:10] VITALS: BP 146/86; PULSE 67; RESP 18; TEMP 97.7; O2SAT 97
[2024-08-18 08:22] VITALS: BP 152/95; PULSE 63; RESP 18; TEMP 97.8; O2SAT 98
[2024-08-18 20:21] VITALS: BP 148/80; PULSE 64; RESP 18; TEMP 97.8; O2SAT 98
[2024-08-18 20:35] VITALS: RESP 18
[2024-08-19 08:18] VITALS: BP 126/70; PULSE 73; RESP 17; TEMP 97.4; O2SAT 98
[2024-08-19 20:16] VITALS: BP 111/82; PULSE 60; RESP 17; TEMP 97.5; O2SAT 97
[2024-08-20 08:01] VITALS: BP 131/74; PULSE 65; RESP 16; TEMP 96.9; O2SAT 100
[2024-08-20] MEDS: INFLUENZA VIRUS VACCINE TVS (6MO+) 2024-25/PF 45 MCG/0.5 ML SYRINGE IM. ONE (15:47)
[2024-08-20] MEDS: PNEUMOCOCCAL VACCINE POLYVALENT 0.5 ML SYRINGE [PPSV23] IM. ONE (15:48)
[2024-08-20 20:02] VITALS: BP 136/84; PULSE 66; RESP 18; TEMP 98.2; O2SAT 97
[2024-08-21 08:29] VITALS: BP 144/92; PULSE 66; RESP 18; TEMP 97.9; O2SAT 98
== END 2024-08-21 14:49 | disposition home or self-care (01) | DRG 750 ==
LOC: EMS 19:41 → B2S 08-09 03:00
PROVIDERS: ADMIT Psychiatry & Neurology Psychiatry; ATTEND Psychiatry & Neurology Psychiatry
PROC: GZHZZZZ Group Psychotherapy (ICD-10-PCS; principal; 2024-08-10)
PROC: GZ52ZZZ Individual Psychotherapy, Cognitive (ICD-10-PCS; 2024-08-10)
DX: F25.1 Schizoaffective disorder, depressive type (principal); N17.9 Acute kidney failure, unspecified; D64.9 Anemia, unspecified; F10.10 Alcohol abuse, uncomplicated; R45.851 Suicidal ideations; S01.511A Laceration without foreign body of lip, initial encounter; F12.10 Cannabis abuse, uncomplicated; I10 Essential (primary) hypertension; Y90.6 Blood alcohol level of 120-199 mg/100 ml; Z20.822 Contact with and (suspected) exposure to COVID-19; F17.210 Nicotine dependence, cigarettes, uncomplicated; X58.XXXA Exposure to other specified factors, initial encounter; Y93.89 Activity, other specified; Y92.89 Other specified places as the place of occurrence of the external cause; Y99.8 Other external cause status; Z59.00 Homelessness unspecified; Z79.899 Other long term (current) drug therapy; Z91.51 Personal history of suicidal behavior; Z88.8 Allergy status to other drugs, medicaments and biological substances
CPT/HCPCS: 80048; 80061; 80307; 81001; 81003; 83036; 84443; 85025; 86803; 87081; 87086; 87340; 99285; G0480; Q0162

== ENCOUNTER 2025-06-20 15:58 | Inpatient (IN) | payer MEDICAID, OTHER ==
[~2025-06-20] VITALS: Ht 172.7 cm; Wt 93.0 kg
[~2025-06-20 15:58] MED LIST changes: +SERT-158 PO
[2025-06-20 16:18] LABS: COVID AG,FIA SOURCE NASAL SWAB
[2025-06-20 16:25] LABS: PLATELET COUNT (AUTO) 243 K/uL (150-450); RED BLOOD CELL COUNT(AUTO) 4.77 MIL/uL (4.50-5.90); RED CELL DISTRIBUTION WIDTH 16.7 % (11.5-14.5); WHITE BLOOD COUNT (AUTO) 5.1 K/uL (4.5-11.0)
[2025-06-20] MEDS: IPRATROPIUM BROMIDE 0.5 MG/2.5 ML NEB SOLUTION NEB ONE (16:33)
[2025-06-20] MEDS: ALBUTEROL SULFATE 2.5 MG/0.5 ML NEB SOLUTION NEB ONE (16:33)
[2025-06-20 16:34] VITALS: PULSE 85; RESP 24; O2SAT 97
[2025-06-20 16:34] LABS: CALCIUM, TOTAL 8.6 mg/dL (8.8-10.5); CREATININE 1.51 mg/dL (0.60-1.30); GLOMERULAR FILTR. RATE CALC 59.0 mL/min (>60); GLUCOSE,RANDOM 108.0 mg/dL (70-110); SODIUM SERUM 133.0 mmol/L (136-145); UREA NITROGEN, BLOOD 26.0 mg/dL (7-18)
[2025-06-20 16:35] LABS: SARS-COV2 (COVID) ANTIGEN,FIA Negative (Negative)
[2025-06-20 16:47] VITALS: PULSE 84; PULSE 85; RESP 24; O2SAT 97
[2025-06-20 17:02] LABS: TROPONIN I-HIGH SENSITIVITY 46 ng/L (<76)
[2025-06-20] MEDS ORDERED: ZOLPIDEM TARTRATE 10 MG TABLET PO PRN (20:15)
[2025-06-20] MEDS ORDERED: OLANZapine 5 MG RAPDIS TABLET PO PRN (20:15)
[2025-06-20 22:50] VITALS: O2SAT 95
[2025-06-21 01:53] VITALS: BP 144/85; PULSE 86; RESP 22; TEMP 98.4; O2SAT 98
[2025-06-21 02:15] VITALS: RESP 25; O2SAT 90
[2025-06-21 05:16] LABS: APPEARANCE,URINE CLEAR (CLEAR); GLUCOSE, URINE (UA) 300-500 mg/dL (NEGATIVE); LEUKOCYTE ESTERASE ,URINE NEGATIVE (NEGATIVE); NITRATE,URINE NEGATIVE (NEGATIVE); OCCULT BLOOD,URINE NEGATIVE (NEGATIVE); PH,URINE DRUG SCREEN 5.5 (5.0-8.0); SPECIFIC GRAVITIY, URINE 1.022 (1.003-1.030)
[2025-06-21 05:20] LABS: ALCOHOL, URINE DRUG SCREEN NEGATIVE (NEGATIVE); AMPHET/METH SCREEN,URINE NEGATIVE (NEGATIVE); BARBITURATE SCREEN, URINE NEGATIVE (NEGATIVE); CANNABINOID SCREEN,URINE POSITIVE (NEGATIVE); COCAINE SCREEN,URINE NEGATIVE (NEGATIVE); METHADONE SCREEN, URINE NEGATIVE (NEGATIVE)
[2025-06-21 05:30] LABS: SQUAMOUS EPITHELIAL CELL,UR Few /LPF (None Seen)
[2025-06-21] MEDS ORDERED: PETROLATUM,WHITE 28 GM JELLY TP PRN (09:00)
[2025-06-21] MEDS ORDERED: OMEPRAZOLE 20 MG CAPSULE PO PRN (09:00)
[2025-06-21] MEDS ORDERED: LOPERAMIDE HCL 2 MG CAPSULE PO PRN (09:00)
[2025-06-21] MEDS ORDERED: ONDANSETRON 4 MG TABLET PO PRN (09:00)
[2025-06-21] MEDS ORDERED: MAGNESIUM HYDROXIDE SUSPENSION 30 ML UDCUP PO PRN (09:00)
[2025-06-21] MEDS ORDERED: BENZOCAINE/MENTHOL [CEPACOL] LOZENGE PO PRN (09:00)
[2025-06-21] MEDS ORDERED: MAG HYDROX/ALUMINUM HYD/SIMETH ES 30 ML SUSPENSION UDCUP PO PRN (09:00)
[2025-06-21] MEDS ORDERED: IBUPROFEN 600 MG TABLET PO PRN (09:00)
[2025-06-21] MEDS ORDERED: ALBUTEROL SULFATE HFA 90 MCG/PUFF 8 GM INHALER IH PRN (09:00)
[2025-06-21] MEDS ORDERED: DOCUSATE SODIUM 100 MG CAPSULE PO PRN (09:00)
[2025-06-21] MEDS ORDERED: BACITRACIN 28 GM OINTMENT TP PRN (09:00)
[2025-06-21] MEDS ORDERED: ACETAMINOPHEN 325 MG TABLET PO PRN (09:00)
[2025-06-21 09:34] VITALS: BP 120/69; PULSE 76; RESP 19; TEMP 98.1; O2SAT 98
[2025-06-21] MEDS ORDERED: IPRATROPIUM BROMIDE 0.5 MG/2.5 ML NEB SOLUTION NEB PRN (11:45)
[2025-06-21] MEDS ORDERED: ALBUTEROL SULFATE 2.5 MG/0.5 ML NEB SOLUTION NEB PRN (11:45)
[2025-06-21] MEDS ORDERED: OLAN10TA74 PO (14:38)
[2025-06-25] MEDS ORDERED: ATOR10TA69 PO (18:05)
[2025-06-25] MEDS ORDERED: BUSP15TA3 PO (18:05)
[2025-06-25] MEDS ORDERED: HYDR12.56 PO (18:05)
[2025-06-25] MEDS ORDERED: TRAZ-257 PO (18:05)
[2025-06-25] MEDS ORDERED: BENZ-247 PO (18:05)
[2025-06-25] MEDS ORDERED: SERT-439 PO (18:05)
[2025-06-25] MEDS ORDERED: LISI10TA24 PO (18:05)
== END 2025-06-21 15:05 | disposition home or self-care (01) | DRG 753 ==
LOC: EMS 15:58 → B3A 06-21 01:11 → 3EI 06-21 08:53
PROVIDERS: ADMIT Psychiatry & Neurology Psychiatry; ATTEND Psychiatry & Neurology Psychiatry
DX: F31.9 Bipolar disorder, unspecified (principal); Z59.00 Homelessness unspecified; R45.851 Suicidal ideations; I10 Essential (primary) hypertension; F17.210 Nicotine dependence, cigarettes, uncomplicated; G47.33 Obstructive sleep apnea (adult) (pediatric); J44.9 Chronic obstructive pulmonary disease, unspecified; R09.02 Hypoxemia; F10.90 Alcohol use, unspecified, uncomplicated; Y90.0 Blood alcohol level of less than 20 mg/100 ml; F12.90 Cannabis use, unspecified, uncomplicated; Z71.6 Tobacco abuse counseling; Z91.148 Patient's other noncompliance with medication regimen for other reason
CPT/HCPCS: 71045; 80048; 80307; 81001; 83880; 84484; 85025; 93005; 94640; 99285; G0480; 36415-L1; 36415-TC; J7613

== ENCOUNTER 2025-06-21 03:14 | Emergency (ER) | payer MEDICAID, OTHER ==
[~2025-06-21] VITALS: Ht 172.7 cm; Wt 81.8 kg
[2025-06-21 03:29] VITALS: TEMP 98
[2025-06-21] MEDS: ALBUTEROL SULFATE 2.5 MG/0.5 ML NEB SOLUTION NEB ONE (04:46)
[2025-06-21] MEDS: IPRATROPIUM BROMIDE 0.5 MG/2.5 ML NEB SOLUTION NEB ONE (04:46)
[2025-06-21 04:50] VITALS: PULSE 71; RESP 16; O2SAT 98
[2025-06-21 05:19] VITALS: PULSE 81; RESP 16; O2SAT 100
[2025-06-21 07:23] VITALS: BP 116/68; PULSE 81; RESP 16; O2SAT 95
[2025-06-21] MEDS ORDERED: OLAN10TA74 PO (14:38)
[2025-06-25] MEDS ORDERED: BUSP15TA3 PO (18:05)
[2025-06-25] MEDS ORDERED: ATOR10TA69 PO (18:05)
[2025-06-25] MEDS ORDERED: TRAZ-257 PO (18:05)
[2025-06-25] MEDS ORDERED: HYDR12.56 PO (18:05)
[2025-06-25] MEDS ORDERED: SERT-439 PO (18:05)
[2025-06-25] MEDS ORDERED: BENZ-247 PO (18:05)
[2025-06-25] MEDS ORDERED: LISI10TA24 PO (18:05)
[2025-06-29] MEDS ORDERED: ALBU18HF12 IH (12:22)
== END 2025-06-21 09:58 | disposition home or self-care (01) ==
LOC: EMS 04:14
DX: J44.9 Chronic obstructive pulmonary disease, unspecified (principal); R09.02 Hypoxemia; F20.9 Schizophrenia, unspecified; F31.9 Bipolar disorder, unspecified; I10 Essential (primary) hypertension; F10.20 Alcohol dependence, uncomplicated; F12.90 Cannabis use, unspecified, uncomplicated; F17.210 Nicotine dependence, cigarettes, uncomplicated; F15.90 Other stimulant use, unspecified, uncomplicated; Z79.899 Other long term (current) drug therapy; Y90.9 Presence of alcohol in blood, level not specified
CPT/HCPCS: 94640; 99283